=== PATIENT | male | born 1940 | race Caucasian/White ===

== ENCOUNTER 2017-01-01 14:01 | Emergency (ER) | payer MEDICARE, BC ==
[2017-01-01 14:15] VITALS: BP 164/83
[2017-01-01] MEDS ORDERED: Sodium Chloride 0.9% 10 ML Syringe FLUSH PRN (14:17)
--- NOTE | 2017-01-01 14:34 | CT ---
Head CT Technique: Multiple axial sections through the brain were obtained. Intravenous contrast was not utilized. Comparison: Previous MRI brain of 12/22/09 is available. Findings: Ventricles along with basal cisterns and sulci over the convexities are mildly prominent. Basal ganglia calcification is seen which is felt to be incidental. Minimal diminished density is seen within the periventricular white matter compatible with small vessel ischemic demyelination change. No other abnormal parenchymal densities are seen. No evidence of intracranial hemorrhage. No midline shift or mass effect is seen. Atherosclerotic calcification is seen within the right vertebral vessel and within the carotid siphon. Minimal areas of mucosal thickening seen within the maxillary and ethmoid sinuses. No acute calvarial abnormality is seen. Impression: 1. Incidental findings as noted above. No acute intracranial abnormality is identified on noncontrast head CT study. Diagnostic code #2
--- NOTE | 2017-01-01 15:28 | EDM.PDOC ---
ED HPI GENERAL MEDICAL PROBLEM - General Chief Complaint: Neuro Symptoms/Deficits Stated Complaint: LIPS ARE NUMB/ L ARM AND SHOULDER PAIN Time Seen by Provider: 01/01/17 14:05 Source of Information: Reports: Patient, Family, RN Notes Reviewed - History of Present Illness INITIAL COMMENTS - FREE TEXT/NARRATIVE: 76-year-old male comes in with left facial paresthesias. He had onset of these about a week ago but somewhat more bothersome yesterday and today. He has a trip coming up to [place] for a wedding and anniversary so he and his son felt they had better get this checked out before he leaves home. He has had no numbness tingling weakness or clumsiness of his hands arms or legs. No difficulty walking or balance difficulty. No visual changes. No headache nausea vomiting. No chest pain or difficulty breathing. He does have history of insulin -dependent diabetes and also history of hypertension. - Related Data Allergies Allergy/AdvReac Type Severity Reaction Status Date / Time Egnhnme-Vgd-Pbu Reductase Allergy Muscle Verified 06/18/15 15:42 Inhibitor Aches sulfamethoxazole Allergy Tachycardia Verified 06/18/15 15:42 [From Bactrim] trimethoprim [From Bactrim] Allergy Tachycardia Verified 06/18/15 15:42 Home Meds: Home Meds Levothyroxine [Synthroid] 50 mcg PO DAILY 04/11/15 [History] Enalapril [Vasotec] 5 mg PO DAILY #30 tablet 04/12/15 [Rx] metFORMIN [Glucophage] 500 mg PO BIDMEALS #60 tablet 04/12/15 [Rx] Insulin Glarg,Human.Rec.Analog [Lantus] 28 unit SUBCUT DAILY 06/18/15 [History] Calcium Polycarbophil 1 caplet PO DAILY 01/01/17 [History] Cholecalciferol (Vitamin D3) [Vitamin D3] 1 cap PO DAILY 01/01/17 [History] Cyanocobalamin (Vitamin B-12) [Vitamin B12] 5,000 mcg SL DAILY 01/01/17 [History ] Glutamine Forte 1 scoop PO BID 01/01/17 [History] Insulin Aspart [NovoLOG] 1 injection SUBCUT QID 01/01/17 [History] Multivit-Min/FA/Lycopene/Lut [Centrum Silver Tablet] 1 tab PO DAILY 01/01/17 [ History] Simvastatin [Zocor] 20 mg PO BEDTIME 01/01/17 [History] Ther-Biotic Complete 1 cap PO DAILY 01/01/17 [History] Past Medical History Other HEENT History: wears glasses Cardiovascular History: Reports: High Cholesterol, Hypertension Gastrointestinal History: Reports: Diverticulosis Other Genitourinary History: frequency, prostate cancer, prostate seed therapy Endocrine/Metabolic History: Reports: Diabetes, Type I, Diabetes, Type II, Hypothyroidism Other Hematologic History: non-hodgkin lymphoma, thrombocytopenia Other Oncologic History: seed implants and radiation Other Dermatologic History: post herpetic neuralgia - Past Surgical History GI Surgical History: Reports: Colonoscopy, Hernia Repair/Other Musculoskeletal Surgical History: Reports: Hip Replacement Social & Family History - Family History Family Medical History: Noncontributory - Tobacco Use Smoking Status *Q: Never Smoker Second Hand Smoke Exposure: No - Alcohol Use Days Per Week of Alcohol Use: 0 - Recreational Drug Use Recreational Drug Use: No ED ROS GENERAL - Review of Systems Review Of Systems: See Below Constitutional: Denies: Fever, Chills, Diaphoresis HEENT: Denies: Sinus Problem, Throat Pain, Vertigo, Vision Change Respiratory: Denies: Shortness of Breath Cardiovascular: Denies: Chest Pain GI/Abdominal: Denies: Abdominal Pain, Nausea, Vomiting Musculoskeletal: Reports: No Symptoms Neurological: Reports: Other (He has had some paresthesias around the mouth more so on the left but also somewhat on the right). Denies: Trouble Speaking, Difficulty Walking, Weakness ED EXAM, NEURO - Physical Exam Exam: See Below General Appearance: Alert, No Apparent Distress Eye Exam: Bilateral Eye: PERRL Throat/Mouth: Normal Inspection, Normal Oropharynx Head Exam: Atraumatic. No: Facial Swelling Neck: Supple Respiratory/Chest: No Respiratory Distress, Lungs Clear, Normal Breath Sounds Cardiovascular: Regular Rate, Rhythm GI/Abdominal: Soft, Non-Tender Neurological: Alert, Normal Mood/Affect, Normal Gait, No Motor/Sensory Deficits , Oriented x 3, Other (Finger to nose testing normal bilateral) Extremities: Normal Inspection, Normal Range of Motion. No: Pedal Edema, Leg Pain Skin Exam: Warm, Dry, Normal Color, No Rash EKG INTERPRETATION EKG Date: 01/01/17 Rhythm: NSR Brule: Normal P-Wave: Present QRS: Normal ST-T: Normal Course - Vital Signs Last Recorded V/S: Last Vital Signs Temp 97.4 F 01/01/17 14:08 Pulse 69 01/01/17 14:08 Resp 18 01/01/17 14:08 BP 164/83 H 01/01/17 14:08 Pulse Ox 95 01/01/17 14:08 - Orders/Labs/Meds Orders: Active Orders 24 hr Category Date Time Status EKG 12 Lead [EKG Documentation Completion] [] STAT Care 01/01/17 14:36 Active POC Glucose [Blood Glucose Check, Bedside] [] ONETIME Care 01/01/17 14:18 Active Peripheral IV Care [RC] . DIRECTED Care 01/01/17 14:17 Active Sodium Chloride 0.9% [Saline Flush] Med 01/01/17 14:17 Active 10 ml FLUSH ASDIRECTED PRN Peripheral IV Insertion Adult [OM.PC] Stat Oth 01/01/17 14:17 Ordered Medication Orders Sodium Chloride (Saline Flush) 10 ml FLUSH ASDIRECTED PRN PRN Reason: Keep Vein Open Last Admin: 01/01/17 14:33 Dose: 10 ml Labs: Laboratory Tests 01/01/17 01/01/17 01/01/17 Range/Units 14:11 14:11 14:12 WBC 4.67 (4.23-9.07) K/mm3 RBC 3.62 L (4.63-6.08) M/mm3 Hgb 11.4 L (13.7-17.5) gm/L Hct 33.2 L (40.1-51.0) % MCV 91.7 (79.0-92.2) fl MCH 31.5 (25.7-32.2) pg MCHC 34.3 (32.2-35.5) g/dl RDW Std Deviation 46.5 H (35.1-43.9) fL Plt Count 99 L (163-337) K/mm3 MPV 10.6 (9.4-12.3) fl Neut % (Auto) 73.5 H (34.0-67.9) % Lymph % (Auto) 15.2 L (21.8-53.1) % [place] % (Auto) 9.0 (5.3-12.2) % Eos % (Auto) 1.7 (0.8-7.0) Baso % (Auto) 0.4 (0.1-1.2) % Neut # (Auto) 3.43 (1.78-5.38) K/mm3 Lymph # (Auto) 0.71 L (1.32-3.57) K/mm3 [place] # (Auto) 0.42 (0.30-0.82) K/mm3 Eos # (Auto) 0.08 (0.04-0.54) K/mm3 Baso # (Auto) 0.02 (0.01-0.08) K/mm3 Manual Slide Review Abnormal smear Sodium 144 (136-145) mEq/L Potassium 4.2 (3.5-5.1) mEq/L Chloride 108 H (98-107) mEq/L Carbon Dioxide 28 (21-32) mEq/L Anion Gap 12.2 (5-15) BUN 21 H (7-18) mg/dL Creatinine 1.1 (0.7-1.3) mg/dL Est Cr Clr Drug Dosing TNP Estimated GFR (MDRD) > 60 (>60) mL/min BUN/Creatinine Ratio 19.1 H (14-18) Glucose 144 H (83-115) mg/dL POC Glucose 135 H (83-110) mg/dL Calcium 9.4 (8.5-10.1) mg/dL Total Bilirubin 0.4 (0.2-1.0) mg/dL AST 17 (15-37) U/L ALT 20 (16-63) U/L Alkaline Phosphatase 71 (46-116) U/L Total Protein 6.6 (6.4-8.2) g/dl Albumin 3.9 (3.4-5.0) g/dl Globulin 2.7 gm/dL Albumin/Globulin Ratio 1.4 (1-2) Meds: Medications Generic Name Dose Route Start Last Admin Trade Name Freq PRN Reason Stop Dose Admin Sodium Chloride 10 ml 01/01/17 14:17 01/01/17 14:33 Saline Flush FLUSH 10 ml ASDIRECTED PRN Administration Keep Vein Open - Re-Assessments/Exams Free Text/Narrative Re-Assessment/Exam: 01/01/17 15:43. CT of head is normal with no acute changes, EKG and monitor shows normal sinus rhythm, no acute changes, no ectopy. On exam he has possible very slight left facial droop but this is very questionable, neuro exam otherwise completely normal. 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 With his history of diabetes I am not going to put him on steroids. Also his son notes that he has been out in the heat a lot this last week. His BUN was upvery a slightly, also mildly anemic with a hemoglobin of 11.4. This was discussed with he and his son. No evidence for stroke or TIA. Discharge instructions as documented Departure - Departure Time of Disposition: 15:21 Disposition: Home, Self-Care 01 Clinical Impression: Paresthesias Anemia Qualifiers: Anemia type: other cause - Discharge Information Referrals: Westley Alberto MD [Primary Care Provider] - Forms: ED Department Discharge Additional Instructions: Rest, drink plenty of water to maintain hydration, continue current medications as prescribed. Try see Dr. Alberto tomorrow if possible, otherwise see Dr. Alberto when you get back from your trip to [place], go to ED immediately if you do to start developing numbness or weakness of your hand or leg or if you develop any type of speech difficulty or symptoms otherwise worsening in any way. - My Orders Last 24 Hours: My Active Orders 01/01/17 14:17 Peripheral IV Care [RC] . DIRECTED Sodium Chloride 0.9% [Saline Flush] 10 ml FLUSH ASDIRECTED PRN Peripheral IV Insertion Adult [OM.PC] Stat 01/01/17 14:18 POC Glucose [Blood Glucose Check, Bedside] [] ONETIME 01/01/17 14:36 EKG 12 Lead [EKG Documentation Completion] [] STAT - Assessment/Plan Last 24 Hours: My Active Orders 01/01/17 14:17 Peripheral IV Care [RC] . DIRECTED Sodium Chloride 0.9% [Saline Flush] 10 ml FLUSH ASDIRECTED PRN Peripheral IV Insertion Adult [OM.PC] Stat 01/01/17 14:18 POC Glucose [Blood Glucose Check, Bedside] [RC] ONETIME 01/01/17 14:36 EKG 12 Lead [EKG Documentation Completion] [] STAT
== END 2017-01-01 15:35 | disposition home or self-care (01) ==
LOC: JD.ED 14:01
DX: R20.9 Unspecified disturbances of skin sensation (principal); D64.9 Anemia, unspecified; I10 Essential (primary) hypertension; E78.00 Pure hypercholesterolemia, unspecified; E11.9 Type 2 diabetes mellitus without complications; E03.9 Hypothyroidism, unspecified; Z96.649 Presence of unspecified artificial hip joint; Z88.2 Allergy status to sulfonamides; Z88.1 Allergy status to other antibiotic agents; Z79.84 Long term (current) use of oral hypoglycemic drugs; Z79.4 Long term (current) use of insulin
CPT/HCPCS: 36415; 70450; 80053; 82962; 85025; 99285; J7050; 99284

== ENCOUNTER 2017-08-27 17:25 | Inpatient (IN) | payer MEDICARE, BC ==
[2017-08-27] MEDS ORDERED: Sodium Chloride 0.9% 10 ML Syringe FLUSH PRN (18:01)
[2017-08-27] MEDS ORDERED: Albuterol 0.083% 2.5 MG/3 ML Neb Soln NEB ONE (18:04)
[2017-08-27] MEDS ORDERED: guaiFENesin 600 MG Tab.ER PO ONE (18:04)
--- NOTE | 2017-08-27 18:56 | EDM.PDOC ---
ED HPI GENERAL MEDICAL PROBLEM - General Chief Complaint: General Stated Complaint: COUGHING/FEVER/NO ENERGY Time Seen by Provider: 08/27/17 17:48 Source of Information: Reports: Patient History Limitations: Reports: No Limitations - History of Present Illness INITIAL COMMENTS - FREE TEXT/NARRATIVE: Patient is a 77-year-old male who presents to the ED with a 4 day history of cough, sinus congestion, fatigue, malaise, and generally not feeling well. States at times he has felt feverish although nothing documented. Cough is productive at times. Has had a poor appetite with coughing. There's been no cough-induced vomiting. He was at the local [employer] [facility] exposed to multiple potential people with illnesses. Patient normally is very active and states as a recently he's been sleeping a lot more. Just recently had a 3 month checkup by his primary care provider with no concerning findings. Denies any chest pain, sore throat, headache, body aches, diarrhea, blood in stool, dysuria, or any additional complaints. Does have history diabetes, prostate cancer, and also non-Hodgkin's lymphoma. Both prostate cancer and non-Hodgkin's lymphoma remission. He's had similar symptoms in the past approximately 3 years ago and placed on Z-Quique. He has smoking history. Does not drink alcohol. Caffeine use is minimal. Patient does see his oncologist yearly. Last checkup was in May with no concerning findings. - Related Data Allergies Allergy/AdvReac Type Severity Reaction Status Date / Time Biwilzt-Tbg-Kun Reductase Allergy Muscle Verified 06/18/15 15:42 Inhibitor Aches sulfamethoxazole Allergy Tachycardia Verified 06/18/15 15:42 [From Bactrim] trimethoprim [From Bactrim] Allergy Tachycardia Verified 06/18/15 15:42 Home Meds: Home Meds Levothyroxine [Synthroid] 50 mcg PO DAILY 04/11/15 [History] Enalapril [Vasotec] 5 mg PO DAILY #30 tablet 04/12/15 [Rx] metFORMIN [Glucophage] 500 mg PO BIDMEALS #60 tablet 04/12/15 [Rx] Insulin Glarg,Human.Rec.Analog [Lantus] 44 unit SUBCUT DAILY 06/18/15 [History] Amoxicillin 500 mg PO ONETIME PRN 08/27/17 [History] Hydrochlorothiazide 12.5 mg PO DAILY 08/27/17 [History] Tamsulosin [Flomax] 0.4 mg PO BID 08/27/17 [History] Past Medical History Other HEENT History: wears glasses Cardiovascular History: Reports: High Cholesterol, Hypertension Gastrointestinal History: Reports: Diverticulosis Other Genitourinary History: frequency, prostate cancer, prostate seed therapy Endocrine/Metabolic History: Reports: Diabetes, Type I, Diabetes, Type II, Hypothyroidism Other Hematologic History: non-hodgkin lymphoma, thrombocytopenia Other Oncologic History: seed implants and radiation Other Dermatologic History: post herpetic neuralgia - Past Surgical History GI Surgical History: Reports: Colonoscopy, Hernia Repair/Other Musculoskeletal Surgical History: Reports: Hip Replacement Social & Family History - Family History Family Medical History: Noncontributory - Tobacco Use Smoking Status *Q: Never Smoker Second Hand Smoke Exposure: No - Caffeine Use Caffeine Use: Reports: Tea - Alcohol Use Days Per Week of Alcohol Use: 0 - Recreational Drug Use Recreational Drug Use: No ED ROS GENERAL - Review of Systems Review Of Systems: See Below Constitutional: Reports: Fever (Tactile), Malaise, Fatigue, Decreased Appetite HEENT: Reports: Rhinitis, Sinus Problem. Denies: Throat Pain Respiratory: Reports: Shortness of Breath, Cough, Sputum. Denies: Wheezing, Pleuritic Chest Pain, Hemoptysis Cardiovascular: Reports: Dyspnea on Exertion. Denies: Chest Pain, Lightheadedness, Orthopnea, PND, Syncope GI/Abdominal: Reports: No Symptoms Musculoskeletal: Reports: No Symptoms Neurological: Reports: No Symptoms ED EXAM, GENERAL - Physical Exam Exam: See Below Exam Limited By: No Limitations General Appearance: Alert, WD/WN, No Apparent Distress Ears: Normal External Exam, Normal Canal, Hearing Grossly Normal, Normal TMs Nose: Normal Inspection, Nasal Drainage, Clear Rhinorrhea Throat/Mouth: Normal Inspection, Normal Oropharynx, Normal Voice, No Airway Compromise Head: Atraumatic, Normocephalic Neck: Normal Inspection, Supple Respiratory/Chest: No Respiratory Distress, No Accessory Muscle Use, Chest Non- Tender, Rhonchi (Right lung moore throughout. Lower left lung moore.), Wheezing (More prominent in the right and left upper lung moore.) Cardiovascular: Normal Peripheral Pulses, Regular Rate, Rhythm, Systolic Murmur (2/6 mitral origin) Peripheral Pulses: 3+: Radial (L), Radial (R) GI/Abdominal: Normal Bowel Sounds, Soft, Non-Tender, No Organomegaly, No Distention Extremities: Normal Inspection, Normal Range of Motion, Non-Tender, Other (1+ edema to lower extremities with no pain to the posterior aspect legs.) Neurological: Alert, Oriented, CN II-XII Intact, Normal Cognition, No Motor/ Sensory Deficits Psychiatric: Normal Affect, Normal Mood Skin Exam: Warm, Dry, Intact, Normal Color Course - Vital Signs Last Recorded V/S: Last Vital Signs Temp 97.5 F 08/27/17 17:37 Pulse 85 08/27/17 17:37 Resp 24 H 08/27/17 17:37 BP 116/81 08/27/17 21:06 Pulse Ox 93 L 08/27/17 18:04 - Orders/Labs/Meds Orders: Active Orders 24 hr Category Date Time Status EKG Documentation Completion [RC] STAT Care 08/27/17 18:01 Active Oxygen Therapy [RC] ASDIRECTED Care 08/27/17 18:01 Active Peripheral IV Care [RC] . DIRECTED Care 08/27/17 18:02 Active RT Aerosol Therapy [RC] ASDIRECTED Care 08/27/17 18:04 Active Chest 2V [CR] Stat Exams 08/27/17 18:01 Taken Sodium Chloride 0.9% [Normal Saline] 1,000 ml Med 08/27/17 20:01 Active IV .BOLUS Sodium Chloride 0.9% [Saline Flush] Med 08/27/17 18:01 Active 10 ml FLUSH ASDIRECTED PRN Peripheral IV Insertion Adult [OM.PC] Stat Oth 08/27/17 18:01 Ordered Medication Orders Albuterol (Proventil Neb Soln) 2.5 mg NEB Q4HRRT PRN PRN Reason: Shortness of Breath Albuterol/Ipratropium (Duoneb 3.0-0.5 Mg/3 Ml) 3 ml NEB QID PRN PRN Reason: Shortness of Breath Benzonatate (Tessalon Perles) 100 mg PO TID PRN PRN Reason: Cough Dextrose/Water (Dextrose 50% In Water) 50 ml IVPUSH ASDIRECTED PRN PRN Reason: Hypoglycemia Enoxaparin Sodium (Lovenox) 40 mg SUBCUT Q24H EROS Guaifenesin (Mucinex) 600 mg PO BID EROS Sodium Chloride (Normal Saline) 1,000 mls @ 250 mls/hr IV .BOLUS ONE Stop: 08/28/17 00:00 Last Admin: 08/27/17 20:28 Dose: 250 mls/hr Levofloxacin/Dextrose 750 mg/ (Premix) 150 mls @ 100 mls/hr IV Q24H [facility] Last Admin: 08/27/17 22:58 Dose: 100 mls/hr Piperacillin Sod/Tazobactam (Sod 4.5 gm/ Sodium Chloride) 100 mls @ 25 mls/hr IV Q8H [facility] Insulin Aspart (Novolog) 0 unit SUBCUT QIDACANDBED [facility] PRN Reason: Protocol Last Admin: 08/27/17 22:55 Dose: 1 units Insulin Detemir (Levemir) 11 unit SUBCUT BID [facility] Levothyroxine Sodium (Synthroid) 50 mcg PO ACBRK [facility] Sodium Chloride (Saline Flush) 10 ml FLUSH ASDIRECTED PRN PRN Reason: Keep Vein Open Last Admin: 08/27/17 18:16 Dose: 10 ml Tamsulosin HCl (Flomax) 0.4 mg PO BID [facility] Labs: Laboratory Tests 08/27/17 08/27/17 08/27/17 Range/Units 17:49 17:49 17:49 WBC 2.98 L (4.23-9.07) K/mm3 RBC 3.77 L (4.63-6.08) M/mm3 Hgb 11.6 L (13.7-17.5) gm/L Hct 34.6 L (40.1-51.0) % MCV 91.8 (79.0-92.2) fl MCH 30.8 (25.7-32.2) pg MCHC 33.5 (32.2-35.5) g/dl RDW Std Deviation 47.1 H (35.1-43.9) fL Plt Count 97 L (163-337) K/mm3 MPV 11.1 (9.4-12.3) fl Neutrophils % (Manual) 64 H (40-60) % Band Neutrophils % 3 (0-10) % Lymphocytes % (Manual) 26 (20-40) % Atypical Lymphs % 0 % Monocytes % (Manual) 3 (2-10) % Eosinophils % (Manual) 1 (0.8-7.0) % Basophils % (Manual) 3 H (0.2-1.2) Platelet Estimate Decreased Plt Morphology Comment Normal Anisocytosis 1+ slight Microcytosis 1+ slight RBC Morph Comment Not Reportable PT 10.0 (8.0-13.0) SECONDS INR 0.94 APTT 29 (22-36) SECONDS D-Dimer, Quantitative 0.52 (0.19-0.59) mg/L Puncture Site ABG pH (7.35-7.45) ABG pCO2 (35.0-45.0) mmHg ABG pO2 (80.0-100.0) mmHg ABG HCO3 (22.0-26.0) meq/L ABG O2 Saturation (96.0-97.0) % ABG Base Excess (-2-2.0) Warren Test A-a Gradient mmHg O2 Delivery Device Oxygen Flow Rate FiO2 (21.00-100.00) % Sodium 138 (136-145) mEq/L Potassium 3.8 (3.5-5.1) mEq/L Chloride 104 (98-107) mEq/L Carbon Dioxide 22 (21-32) mEq/L Anion Gap 15.8 H (5-15) BUN 18 (7-18) mg/dL Creatinine 1.1 (0.7-1.3) mg/dL Est Cr Clr Drug Dosing 65.39 mL/min Estimated GFR (MDRD) > 60 (>60) mL/min BUN/Creatinine Ratio 16.4 (14-18) Glucose 179 H (83-115) mg/dL Lactic Acid (0.4-2.0) mmol/L Calcium 8.5 (8.5-10.1) mg/dL Total Bilirubin 0.5 (0.2-1.0) mg/dL AST 20 (15-37) U/L ALT 13 L (16-63) U/L Alkaline Phosphatase 79 (46-116) U/L NT-Pro-B Natriuret Pep (0-450) pg/mL Total Protein 7.0 (6.4-8.2) g/dl Albumin 3.8 (3.4-5.0) g/dl Globulin 3.2 gm/dL Albumin/Globulin Ratio 1.2 (1-2) TSH 3rd Generation (0.358-3.74) uIU/mL 08/27/17 08/27/17 08/27/17 Range/Units 17:49 18:22 18:22 WBC (4.23-9.07) K/mm3 RBC (4.63-6.08) M/mm3 Hgb (13.7-17.5) gm/L Hct (40.1-51.0) % MCV (79.0-92.2) fl MCH (25.7-32.2) pg MCHC (32.2-35.5) g/dl RDW Std Deviation (35.1-43.9) fL Plt Count (163-337) K/mm3 MPV (9.4-12.3) fl Neutrophils % (Manual) (40-60) % Band Neutrophils % (0-10) % Lymphocytes % (Manual) (20-40) % Atypical Lymphs % % Monocytes % (Manual) (2-10) % Eosinophils % (Manual) (0.8-7.0) % Basophils % (Manual) (0.2-1.2) Platelet Estimate Plt Morphology Comment Anisocytosis Microcytosis RBC Morph Comment PT (8.0-13.0) SECONDS INR APTT (22-36) SECONDS D-Dimer, Quantitative (0.19-0.59) mg/L Puncture Site Lt radial ABG pH 7.43 (7.35-7.45) ABG pCO2 29.2 L (35.0-45.0) mmHg ABG pO2 63.0 L (80.0-100.0) mmHg ABG HCO3 18.9 L (22.0-26.0) meq/L ABG O2 Saturation 93.4 L (96.0-97.0) % ABG Base Excess -4.1 L (-2-2.0) Warren Test Positive A-a Gradient 80 mmHg O2 Delivery Device Nasal cannula Oxygen Flow Rate 2.0 FiO2 28.00 (21.00-100.00) % Sodium (136-145) mEq/L Potassium (3.5-5.1) mEq/L Chloride (98-107) mEq/L Carbon Dioxide (21-32) mEq/L Anion Gap (5-15) BUN (7-18) mg/dL Creatinine (0.7-1.3) mg/dL Est Cr Clr Drug Dosing mL/min Estimated GFR (MDRD) (>60) mL/min BUN/Creatinine Ratio (14-18) Glucose (83-115) mg/dL Lactic Acid 1.8 (0.4-2.0) mmol/L Calcium (8.5-10.1) mg/dL Total Bilirubin (0.2-1.0) mg/dL AST (15-37) U/L ALT (16-63) U/L Alkaline Phosphatase (46-116) U/L NT-Pro-B Natriuret Pep 232 (0-450) pg/mL Total Protein (6.4-8.2) g/dl Albumin (3.4-5.0) g/dl Globulin gm/dL Albumin/Globulin Ratio (1-2) TSH 3rd Generation (0.358-3.74) uIU/mL 08/27/17 Range/Units 18:22 WBC (4.23-9.07) K/mm3 RBC (4.63-6.08) M/mm3 Hgb (13.7-17.5) gm/L Hct (40.1-51.0) % MCV (79.0-92.2) fl MCH (25.7-32.2) pg MCHC (32.2-35.5) g/dl RDW Std Deviation (35.1-43.9) fL Plt Count (163-337) K/mm3 MPV (9.4-12.3) fl Neutrophils % (Manual) (40-60) % Band Neutrophils % (0-10) % Lymphocytes % (Manual) (20-40) % Atypical Lymphs % % Monocytes % (Manual) (2-10) % Eosinophils % (Manual) (0.8-7.0) % Basophils % (Manual) (0.2-1.2) Platelet Estimate Plt Morphology Comment Anisocytosis Microcytosis RBC Morph Comment PT (8.0-13.0) SECONDS INR APTT (22-36) SECONDS D-Dimer, Quantitative (0.19-0.59) mg/L Puncture Site ABG pH (7.35-7.45) ABG pCO2 (35.0-45.0) mmHg ABG pO2 (80.0-100.0) mmHg ABG HCO3 (22.0-26.0) meq/L ABG O2 Saturation (96.0-97.0) % ABG Base Excess (-2-2.0) Warren Test A-a Gradient mmHg O2 Delivery Device Oxygen Flow Rate FiO2 (21.00-100.00) % Sodium (136-145) mEq/L Potassium (3.5-5.1) mEq/L Chloride (98-107) mEq/L Carbon Dioxide (21-32) mEq/L Anion Gap (5-15) BUN (7-18) mg/dL Creatinine (0.7-1.3) mg/dL Est Cr Clr Drug Dosing mL/min Estimated GFR (MDRD) (>60) mL/min BUN/Creatinine Ratio (14-18) Glucose (83-115) mg/dL Lactic Acid (0.4-2.0) mmol/L Calcium (8.5-10.1) mg/dL Total Bilirubin (0.2-1.0) mg/dL AST (15-37) U/L ALT (16-63) U/L Alkaline Phosphatase (46-116) U/L NT-Pro-B Natriuret Pep (0-450) pg/mL Total Protein (6.4-8.2) g/dl Albumin (3.4-5.0) g/dl Globulin gm/dL Albumin/Globulin Ratio (1-2) TSH 3rd Generation 3.669 (0.358-3.74) uIU/mL Meds: Medications Generic Name Dose Route Start Last Admin Trade Name Freq PRN Reason Stop Dose Admin Albuterol 2.5 mg 08/27/17 21:35 Proventil Neb Soln NEB Q4HRRT PRN Shortness of Breath Albuterol/Ipratropium 3 ml 08/27/17 21:32 Duoneb 3.0-0.5 Mg/3 Ml NEB QID PRN Shortness of Breath Benzonatate 100 mg 08/27/17 21:32 Tessalon Perles PO TID PRN Cough Dextrose/Water 50 ml 08/27/17 21:24 Dextrose 50% In Water IVPUSH ASDIRECTED PRN Hypoglycemia Enoxaparin Sodium 40 mg 08/27/17 21:45 Lovenox SUBCUT Q24H EROS Guaifenesin 600 mg 08/28/17 09:00 Mucinex PO BID EROS Sodium Chloride 1,000 mls @ 250 mls/hr 08/27/17 20:01 08/27/17 20:28 Normal Saline IV 08/28/17 00:00 250 mls/hr .BOLUS ONE Administration Levofloxacin/Dextrose 750 mg/ 150 mls @ 100 mls/hr 08/27/17 21:30 08/27/17 22 :58 Premix IV 100 mls/hr Q24H EROS Administration Piperacillin Sod/Tazobactam 100 mls @ 25 mls/hr 08/28/17 06:00 Sod 4.5 gm/ Sodium Chloride IV Q8H [facility] Insulin Aspart 0 unit 08/27/17 22:00 08/27/17 22:55 Novolog SUBCUT 1 units QIDACANDBED [facility] Administration Protocol Insulin Detemir 11 unit 08/28/17 09:00 Levemir SUBCUT BID [facility] Levothyroxine Sodium 50 mcg 08/28/17 06:00 Synthroid PO ACBRK [facility] Sodium Chloride 10 ml 08/27/17 18:01 08/27/17 18:16 Saline Flush FLUSH 10 ml ASDIRECTED PRN Administration Keep Vein Open Tamsulosin HCl 0.4 mg 08/28/17 09:00 Flomax PO BID EROS Discontinued Medications Generic Name Dose Route Start Last Admin Trade Name Freq PRN Reason Stop Dose Admin Albuterol 2.5 mg 08/27/17 18:04 08/27/17 18:13 Proventil Neb Soln NEB 08/27/17 18:05 2.5 mg ONETIME ONE Administration Azithromycin 500 mg 08/27/17 19:15 08/27/17 19:24 Zithromax PO 08/27/17 19:16 500 mg DAILY ONE Administration Guaifenesin 600 mg 08/27/17 18:04 08/27/17 18:16 Mucinex PO 08/27/17 18:05 600 mg ONETIME ONE Administration Ceftriaxone Sodium 2 gm/ 100 mls @ 100 mls/hr 08/27/17 19:15 08/27/17 19:26 Sodium Chloride IV 08/27/17 20:14 100 mls/hr ONETIME ONE Administration Piperacillin Sod/Tazobactam 100 mls @ 200 mls/hr 08/27/17 21:45 08/27/17 23: 18 Sod 4.5 gm/ Sodium Chloride IV 08/27/17 22:14 200 mls/hr ONETIME ONE Administration Pneumococcal Polyvalent Vaccine 0.5 ml 08/27/17 22:07 Pneumovax 23 IM 08/27/17 22:08 .ONCE ONE Prednisone 40 mg 08/27/17 19:16 08/27/17 19:24 Prednisone PO 08/27/17 19:17 40 mg ONETIME ONE Administration - Re-Assessments/Exams Free Text/Narrative Re-Assessment/Exam: IV established. Ordered albuterol neb treatment and also Mucinex 600 mg by mouth. Initial labs and studies were includes: CBC, d-dimer, influenza screen, coag studies, left chest, proBNP, chest x-ray two-view, and EKG. EKG sinus rhythm at a rate of 83 with Q wave present in leads 3. WBC: 2.98, HGB 11.6, platelet count 97, d-dimer 0.52, chemistry panel was essentially normal. At a gas 1.8. ProBNP to 32. Blood gas pH 7.43, PCO2 29.2, PO2 63, HCO3 18.9, ABG O2 saturation 93.4 via nasal cannula 2 L/m. 1914 Dr. Kirby reviewed CXR and agrees patient has has finding concerning for right sided middle lobe pneumonia. Influenza screen was negative. Ordered azithromycin 500mg PO, prednisone 40mg PO, and ceftriaxone 2 grams IV to treat for CAP. 08/27/17 19:38 O2 saturation 90-91% on room air. TSH 3.6 08/27/17 20:[address] Chaidez. Requested patient be admitted to [facility] with telemetry with reverse isolation. Departure - Departure Time of Disposition: 19:53 Disposition: Home, Self-Care 01 Clinical Impression: Thrombocytopenia CAP (community acquired pneumonia) Qualifiers: Laterality: right Lung location: middle lobe of lung Qualified Code(s): J18.1 - Lobar pneumonia, unspecified organism Leukopenia Qualifiers: Leukopenia type: unspecified Qualified Code(s): D72.819 - Decreased white blood cell count, unspecified Anemia Qualifiers: Anemia type: unspecified type Qualified Code(s): D64.9 - Anemia, unspecified - Discharge Information - My Orders Last 24 Hours: My Active Orders 08/27/17 18:01 EKG Documentation Completion [RC] STAT Oxygen Therapy [RC] ASDIRECTED Chest 2V [CR] Stat Sodium Chloride 0.9% [Saline Flush] 10 ml FLUSH ASDIRECTED PRN Peripheral IV Insertion Adult [OM.PC] Stat 08/27/17 18:02 Peripheral IV Care [RC] . DIRECTED 08/27/17 18:04 RT Aerosol Therapy [RC] ASDIRECTED 08/27/17 20:01 Sodium Chloride 0.9% [Normal Saline] 1,000 ml IV .BOLUS - Assessment/Plan Last 24 Hours: My Active Orders 08/27/17 18:01 EKG Documentation Completion [RC] STAT Oxygen Therapy [RC] ASDIRECTED Chest 2V [CR] Stat Sodium Chloride 0.9% [Saline Flush] 10 ml FLUSH ASDIRECTED PRN Peripheral IV Insertion Adult [OM.PC] Stat 08/27/17 18:02 Peripheral IV Care [RC] . DIRECTED 08/27/17 18:04 RT Aerosol Therapy [RC] ASDIRECTED 08/27/17 20:01 Sodium Chloride 0.9% [Normal Saline] 1,000 ml IV .BOLUS
[2017-08-27] MEDS ORDERED: cefTRIAXone 2 GM in Sodium Chloride 0.9% 100 ML IV ONE (19:15)
[2017-08-27] MEDS ORDERED: Azithromycin 250 MG Tab PO ONE (19:15)
[2017-08-27] MEDS ORDERED: predniSONE 20 MG Tab PO ONE (19:16)
[2017-08-27] MEDS ORDERED: Sodium Chloride 0.9% 1,000 ML IV ONE (20:01)
[2017-08-27] MEDS ORDERED: 50% Dextrose in Water 50 ML Syringe IVPUSH PRN (21:24)
[2017-08-27] MEDS ORDERED: Albuterol/Ipratropium 3.0-0.5 MG/3 ML Neb Soln NEB PRN (21:32)
[2017-08-27] MEDS ORDERED: Albuterol 0.083% 2.5 MG/3 ML Neb Soln NEB PRN (21:35)
[2017-08-27] MEDS ORDERED: Piperacillin/Tazobactam 4.5 GM in Sodium Chloride 0.9% 100 ML IV ONE (21:45)
[2017-08-27] MEDS ORDERED: Pneumococcal Polyvalent-23 Vaccine 0.5 ML SDV IM ONE (22:07)
[2017-08-27] MEDS: Insulin Aspart 100 Units/ML 3 ML Pen SUBCUT SCH (22:55)
[2017-08-27] MEDS: Levofloxacin/Dextrose 5%-Water 750 MG in Premix Bag 1 BAG IV SCH (22:58)
[2017-08-28] MEDS ORDERED: Sodium Chloride 0.9% 1,000 ML IV SCH (01:15)
[2017-08-28] MEDS ORDERED: Piperacillin/Tazobactam 4.5 GM in Sodium Chloride 0.9% 100 ML IV SCH (06:00)
--- NOTE | 2017-08-28 07:16 | CR ---
Chest: Two views of the chest were obtained. Comparison: Prior chest x-ray of 04/11/15. Patchy increased density is seen within both lung bases. Upper lungs are clear. Heart size is normal. Mild tortuosity of the thoracic aorta is seen. Bony structures show mild degenerative change within the spine. Impression: 1. Patchy increased density within both lung bases raising the possibility of mild bibasilar pneumonia. 2. Other incidental findings. Diagnostic code #3
[2017-08-28] MEDS ORDERED: INSULIN GLARG HUMAN REC ANALOG SUBCUT SCH (09:00)
[2017-08-28] MEDS: Insulin Aspart 100 Units/ML 3 ML Pen SUBCUT SCH ×4 (10:33→21:26)
[2017-08-28] MEDS: Insulin Detemir 100 Units/ML 3 ML Pen SUBCUT SCH ×2 (10:34→21:27)
[2017-08-28] MEDS: Tamsulosin 0.4 MG Cap.ER PO SCH ×2 (10:34→21:06)
[2017-08-28] MEDS: guaiFENesin 600 MG Tab.ER PO SCH ×2 (10:36→21:06)
[2017-08-28] MEDS: Enoxaparin 40 MG/0.4 ML Syringe SUBCUT SCH (12:45)
[2017-08-28] MEDS: Levothyroxine 50 MCG Tab PO SCH (14:42)
[2017-08-28] MEDS: Piperacillin/Tazobactam 4.5 GM in Dextrose 5% in Water 100 ML IV SCH ×4 (14:42→22:32)
--- NOTE | 2017-08-28 15:15 | PCM.HP ---
H&P History of Present Illness - General Date of Service: 08/27/17 Admit Problem/Dx: Admission Diagnosis/Problem Admission Diagnosis/Problem Pneumonia Source of Information: Patient, Family, Provider History Limitations: Reports: No Limitations - History of Present Illness Initial Comments - Free Text/Narative: 77 year old male with PMH of DM type 2, NHL, prostate cancer presents with generalized weakness associated with a productive cough. He may or may not have had a fever. He denies nausea and vomiting. There has been decreased oral ingestion of solid food and liquids. He has a beginning infiltrate in the right middle lobe and will be admitted for PNA. MS telemetry, full code. Onset of Symptoms: Reports: Gradual Symptom Onset Date: 08/23/17 Duration of Symptoms: Reports: Day(s):, Getting Worse Location: Reports: Generalized Severity: Moderate Improves with: Reports: Medication Worsens with: Reports: None Associated Symptoms: Reports: Chest Pain, cough w sputum, Fever/Chills, Malaise , Nausea/Vomiting, Weakness - Related Data Allergies/Adverse Reactions: Allergies Allergy/AdvReac Type Severity Reaction Status Date / Time Jnguops-Ydi-Vdf Reductase Allergy Muscle Verified 06/18/15 15:42 Inhibitor Aches sulfamethoxazole Allergy Tachycardia Verified 06/18/15 15:42 [From Bactrim] trimethoprim [From Bactrim] Allergy Tachycardia Verified 06/18/15 15:42 Home Medications: Home Meds Levothyroxine [Synthroid] 50 mcg PO DAILY 04/11/15 [History] Enalapril [Vasotec] 5 mg PO DAILY #30 tablet 04/12/15 [Rx] metFORMIN [Glucophage] 500 mg PO BIDMEALS #60 tablet 04/12/15 [Rx] Insulin Glarg,Human.Rec.Analog [Lantus] 44 unit SUBCUT DAILY 06/18/15 [History] Amoxicillin 500 mg PO ONETIME PRN 08/27/17 [History] Hydrochlorothiazide 12.5 mg PO DAILY 08/27/17 [History] Tamsulosin [Flomax] 0.4 mg PO BID 08/27/17 [History] Past Medical History HEENT History: Reports: None Other HEENT History: wears glasses Cardiovascular History: Reports: High Cholesterol, Hypertension Gastrointestinal History: Reports: Diverticulosis Other Genitourinary History: frequency, prostate cancer, prostate seed therapy Endocrine/Metabolic History: Reports: Diabetes, Type I, Diabetes, Type II, Hypothyroidism Other Hematologic History: non-hodgkin lymphoma, thrombocytopenia Oncologic (Cancer) History: Reports: Prostate Other Oncologic History: seed implants and radiation Other Dermatologic History: post herpetic neuralgia - Infectious Disease History Infectious Disease History: Reports: Chicken Pox, Measles, Mumps, Shingles - Past Surgical History GI Surgical History: Reports: Colonoscopy, Hernia Repair/Other Musculoskeletal Surgical History: Reports: Hip Replacement Social & Family History - Family History Family Medical History: Noncontributory - Tobacco Use Smoking Status *Q: Never Smoker Second Hand Smoke Exposure: No - Caffeine Use Caffeine Use: Reports: Tea - Alcohol Use Days Per Week of Alcohol Use: 0 - Recreational Drug Use Recreational Drug Use: No H&P Review of Systems - Review of Systems: Review Of Systems: See Below General: Reports: Fever, Malaise, Weakness, Decreased Appetite Pulmonary: Reports: Shortness of Breath, Pleuritic Chest Pain Cardiovascular: Reports: Chest Pain Gastrointestinal: Reports: Decreased Appetite Genitourinary: Reports: No Symptoms Musculoskeletal: Reports: No Symptoms Skin: Reports: No Symptoms Psychiatric: Reports: No Symptoms Neurological: Reports: No Symptoms Hematologic/Lymphatic: Reports: No Symptoms Immunologic: Reports: No Symptoms Exam - Exam Exam: See Below - Vital Signs Vital Signs: Last Vital Signs Temp 36.4 C 08/28/17 12:10 Pulse 65 08/28/17 12:10 Resp 20 08/28/17 12:10 BP 146/66 H 08/28/17 12:10 Pulse Ox 95 08/28/17 13:27 Weight: 105.143 kg - Exam Quality Assessment: Supplemental Oxygen, DVT Prophylaxis General: Alert, Oriented, Cooperative, Mild Distress HEENT: EOMI, Nares Patent, Normal Nasal Septum, Pupils Equal, Pupils Reactive, PERRLA Neck: Trachea Midline Lungs: Normal Respiratory Effort, Decreased Breath Sounds, Rhonchi Cardiovascular: Regular Rate, Regular Rhythm GI/Abdominal Exam: Normal Bowel Sounds, Soft, Non-Tender, No Organomegaly, No Distention (Male) Exam: Deferred Rectal (Males) Exam: Deferred Back Exam: Normal Inspection Extremities: Normal Inspection, Non-Tender, Normal Capillary Refill Skin: Warm, Dry Neurological: Cranial Nerves Intact Neuro Extensive - Mental Status: Alert, Oriented x3, Normal Mood/Affect, Normal Cognition Neuro Extensive - Motor, Sensory, Reflexes: CN II-XII Intact Psychiatric: Alert, Normal Affect, Normal Mood - Patient Data Lab Results Last 24 hrs: Laboratory Results - last 24 hr 08/27/17 08/27/17 08/27/17 Range/Units 17:49 17:49 17:49 WBC 2.98 L (4.23-9.07) K/mm3 RBC 3.77 L (4.63-6.08) M/mm3 Hgb 11.6 L (13.7-17.5) gm/L Hct 34.6 L (40.1-51.0) % MCV 91.8 (79.0-92.2) fl MCH 30.8 (25.7-32.2) pg MCHC 33.5 (32.2-35.5) g/dl RDW Std Deviation 47.1 H (35.1-43.9) fL Plt Count 97 L (163-337) K/mm3 MPV 11.1 (9.4-12.3) fl Neutrophils % (Manual) 64 H (40-60) % Band Neutrophils % 3 (0-10) % Lymphocytes % (Manual) 26 (20-40) % Atypical Lymphs % 0 % Monocytes % (Manual) 3 (2-10) % Eosinophils % (Manual) 1 (0.8-7.0) % Basophils % (Manual) 3 H (0.2-1.2) Platelet Estimate Decreased Plt Morphology Comment Normal Anisocytosis 1+ slight Microcytosis 1+ slight RBC Morph Comment Not Reportable PT 10.0 (8.0-13.0) SECONDS INR 0.94 APTT 29 (22-36) SECONDS D-Dimer, Quantitative 0.52 (0.19-0.59) mg/L Puncture Site ABG pH (7.35-7.45) ABG pCO2 (35.0-45.0) mmHg ABG pO2 (80.0-100.0) mmHg ABG HCO3 (22.0-26.0) meq/L ABG O2 Saturation (96.0-97.0) % ABG Base Excess (-2-2.0) Warren Test A-a Gradient mmHg O2 Delivery Device Oxygen Flow Rate FiO2 (21.00-100.00) % Sodium 138 (136-145) mEq/L Potassium 3.8 (3.5-5.1) mEq/L Chloride 104 (98-107) mEq/L Carbon Dioxide 22 (21-32) mEq/L Anion Gap 15.8 H (5-15) BUN 18 (7-18) mg/dL Creatinine 1.1 (0.7-1.3) mg/dL Est Cr Clr Drug Dosing 65.39 mL/min Estimated GFR (MDRD) > 60 (>60) mL/min BUN/Creatinine Ratio 16.4 (14-18) Glucose 179 H (83-115) mg/dL POC Glucose (83-110) mg/dL Lactic Acid (0.4-2.0) mmol/L Calcium 8.5 (8.5-10.1) mg/dL Total Bilirubin 0.5 (0.2-1.0) mg/dL AST 20 (15-37) U/L ALT 13 L (16-63) U/L Alkaline Phosphatase 79 (46-116) U/L NT-Pro-B Natriuret Pep (0-450) pg/mL Total Protein 7.0 (6.4-8.2) g/dl Albumin 3.8 (3.4-5.0) g/dl Globulin 3.2 gm/dL Albumin/Globulin Ratio 1.2 (1-2) TSH 3rd Generation (0.358-3.74) uIU/mL Mycoplasma pneumon IgM (NEGATIVE) 08/27/17 08/27/17 08/27/17 Range/Units 17:49 18:22 18:22 WBC (4.23-9.07) K/mm3 RBC (4.63-6.08) M/mm3 Hgb (13.7-17.5) gm/L Hct (40.1-51.0) % MCV (79.0-92.2) fl MCH (25.7-32.2) pg MCHC (32.2-35.5) g/dl RDW Std Deviation (35.1-43.9) fL Plt Count (163-337) K/mm3 MPV (9.4-12.3) fl Neutrophils % (Manual) (40-60) % Band Neutrophils % (0-10) % Lymphocytes % (Manual) (20-40) % Atypical Lymphs % % Monocytes % (Manual) (2-10) % Eosinophils % (Manual) (0.8-7.0) % Basophils % (Manual) (0.2-1.2) Platelet Estimate Plt Morphology Comment Anisocytosis Microcytosis RBC Morph Comment PT (8.0-13.0) SECONDS INR APTT (22-36) SECONDS D-Dimer, Quantitative (0.19-0.59) mg/L Puncture Site Lt radial ABG pH 7.43 (7.35-7.45) ABG pCO2 29.2 L (35.0-45.0) mmHg ABG pO2 63.0 L (80.0-100.0) mmHg ABG HCO3 18.9 L (22.0-26.0) meq/L ABG O2 Saturation 93.4 L (96.0-97.0) % ABG Base Excess -4.1 L (-2-2.0) Warren Test Positive A-a Gradient 80 mmHg O2 Delivery Device Nasal cannula Oxygen Flow Rate 2.0 FiO2 28.00 (21.00-100.00) % Sodium (136-145) mEq/L Potassium (3.5-5.1) mEq/L Chloride (98-107) mEq/L Carbon Dioxide (21-32) mEq/L Anion Gap (5-15) BUN (7-18) mg/dL Creatinine (0.7-1.3) mg/dL Est Cr Clr Drug Dosing mL/min Estimated GFR (MDRD) (>60) mL/min BUN/Creatinine Ratio (14-18) Glucose (83-115) mg/dL POC Glucose (83-110) mg/dL Lactic Acid 1.8 (0.4-2.0) mmol/L Calcium (8.5-10.1) mg/dL Total Bilirubin (0.2-1.0) mg/dL AST (15-37) U/L ALT (16-63) U/L Alkaline Phosphatase (46-116) U/L NT-Pro-B Natriuret Pep 232 (0-450) pg/mL Total Protein (6.4-8.2) g/dl Albumin (3.4-5.0) g/dl Globulin gm/dL Albumin/Globulin Ratio (1-2) TSH 3rd Generation (0.358-3.74) uIU/mL Mycoplasma pneumon IgM (NEGATIVE) 08/27/17 08/27/17 08/28/17 Range/Units 18:22 21:34 06:10 WBC (4.23-9.07) K/mm3 RBC (4.63-6.08) M/mm3 Hgb (13.7-17.5) gm/L Hct (40.1-51.0) % MCV (79.0-92.2) fl MCH (25.7-32.2) pg MCHC (32.2-35.5) g/dl RDW Std Deviation (35.1-43.9) fL Plt Count (163-337) K/mm3 MPV (9.4-12.3) fl Neutrophils % (Manual) (40-60) % Band Neutrophils % (0-10) % Lymphocytes % (Manual) (20-40) % Atypical Lymphs % % Monocytes % (Manual) (2-10) % Eosinophils % (Manual) (0.8-7.0) % Basophils % (Manual) (0.2-1.2) Platelet Estimate Plt Morphology Comment Anisocytosis Microcytosis RBC Morph Comment PT (8.0-13.0) SECONDS INR APTT (22-36) SECONDS D-Dimer, Quantitative (0.19-0.59) mg/L Puncture Site ABG pH (7.35-7.45) ABG pCO2 (35.0-45.0) mmHg ABG pO2 (80.0-100.0) mmHg ABG HCO3 (22.0-26.0) meq/L ABG O2 Saturation (96.0-97.0) % ABG Base Excess (-2-2.0) Warren Test A-a Gradient mmHg O2 Delivery Device Oxygen Flow Rate FiO2 (21.00-100.00) % Sodium (136-145) mEq/L Potassium (3.5-5.1) mEq/L Chloride (98-107) mEq/L Carbon Dioxide (21-32) mEq/L Anion Gap (5-15) BUN (7-18) mg/dL Creatinine (0.7-1.3) mg/dL Est Cr Clr Drug Dosing mL/min Estimated GFR (MDRD) (>60) mL/min BUN/Creatinine Ratio (14-18) Glucose (83-115) mg/dL POC Glucose 167 H (83-110) mg/dL Lactic Acid (0.4-2.0) mmol/L Calcium (8.5-10.1) mg/dL Total Bilirubin (0.2-1.0) mg/dL AST (15-37) U/L ALT (16-63) U/L Alkaline Phosphatase (46-116) U/L NT-Pro-B Natriuret Pep (0-450) pg/mL Total Protein (6.4-8.2) g/dl Albumin (3.4-5.0) g/dl Globulin gm/dL Albumin/Globulin Ratio (1-2) TSH 3rd Generation 3.669 (0.358-3.74) uIU/mL Mycoplasma pneumon IgM Negative (NEGATIVE) 08/28/17 08/28/17 Range/Units 06:30 11:24 WBC (4.23-9.07) K/mm3 RBC (4.63-6.08) M/mm3 Hgb (13.7-17.5) gm/L Hct (40.1-51.0) % MCV (79.0-92.2) fl MCH (25.7-32.2) pg MCHC (32.2-35.5) g/dl RDW Std Deviation (35.1-43.9) fL Plt Count (163-337) K/mm3 MPV (9.4-12.3) fl Neutrophils % (Manual) (40-60) % Band Neutrophils % (0-10) % Lymphocytes % (Manual) (20-40) % Atypical Lymphs % % Monocytes % (Manual) (2-10) % Eosinophils % (Manual) (0.8-7.0) % Basophils % (Manual) (0.2-1.2) Platelet Estimate Plt Morphology Comment Anisocytosis Microcytosis RBC Morph Comment PT (8.0-13.0) SECONDS INR APTT (22-36) SECONDS D-Dimer, Quantitative (0.19-0.59) mg/L Puncture Site ABG pH (7.35-7.45) ABG pCO2 (35.0-45.0) mmHg ABG pO2 (80.0-100.0) mmHg ABG HCO3 (22.0-26.0) meq/L ABG O2 Saturation (96.0-97.0) % ABG Base Excess (-2-2.0) Warren Test A-a Gradient mmHg O2 Delivery Device Oxygen Flow Rate FiO2 (21.00-100.00) % Sodium (136-145) mEq/L Potassium (3.5-5.1) mEq/L Chloride (98-107) mEq/L Carbon Dioxide (21-32) mEq/L Anion Gap (5-15) BUN (7-18) mg/dL Creatinine (0.7-1.3) mg/dL Est Cr Clr Drug Dosing mL/min Estimated GFR (MDRD) (>60) mL/min BUN/Creatinine Ratio (14-18) Glucose (83-115) mg/dL POC Glucose 225 H 250 H (83-110) mg/dL Lactic Acid (0.4-2.0) mmol/L Calcium (8.5-10.1) mg/dL Total Bilirubin (0.2-1.0) mg/dL AST (15-37) U/L ALT (16-63) U/L Alkaline Phosphatase (46-116) U/L NT-Pro-B Natriuret Pep (0-450) pg/mL Total Protein (6.4-8.2) g/dl Albumin (3.4-5.0) g/dl Globulin gm/dL Albumin/Globulin Ratio (1-2) TSH 3rd Generation (0.358-3.74) uIU/mL Mycoplasma pneumon IgM (NEGATIVE) Result Diagrams: 08/27/17 17:49 08/27/17 17:49 Joshua Results Last 24 hrs: Microbiology 08/27/17 18:48 Influenza Type A Antigen Screen - Final Nasal Aspirate, Unspecified NEGATIVE INFLUENZA A VIRUS AG Influenza Type B Antigen Screen - Final NEGATIVE INFLUENZA B VIRUS AG - Problem List (1) Pneumonia SNOMED Code(s): 673225747 ICD Code: J18.9 - PNEUMONIA, UNSPECIFIED ORGANISM Status: Acute Current Visit: Yes (2) Diabetes mellitus SNOMED Code(s): 35849827 ICD Code: E11.9 - TYPE 2 DIABETES MELLITUS WITHOUT COMPLICATIONS Status: Acute Current Visit: Yes (3) Hyperlipidemia associated with type 2 diabetes mellitus SNOMED Code(s): 630414534644, 836258064578 ICD Code: E11.69 - TYPE 2 DIABETES MELLITUS WITH OTHER SPECIFIED COMPLICATION ; E78.5 - HYPERLIPIDEMIA, UNSPECIFIED Status: Acute Current Visit: Yes (4) Hyperlipidemia SNOMED Code(s): 27548104 ICD Code: E78.5 - HYPERLIPIDEMIA, UNSPECIFIED Status: Acute Current Visit : Yes (5) Anemia SNOMED Code(s): 352252101 ICD Code: D64.9 - ANEMIA, UNSPECIFIED Status: Acute Current Visit: Yes Qualifiers: Anemia type: unspecified type Qualified Code(s): D64.9 - Anemia, unspecified (6) Leukopenia SNOMED Code(s): 17655405, 862438454 ICD Code: D72.819 - DECREASED WHITE BLOOD CELL COUNT, UNSPECIFIED Status: Acute Current Visit: Yes Qualifiers: Leukopenia type: unspecified Qualified Code(s): D72.819 - Decreased white blood cell count, unspecified (7) Thrombocytopenia SNOMED Code(s): 304649629 ICD Code: D69.6 - THROMBOCYTOPENIA, UNSPECIFIED Status: Acute Current Visit: Yes Problem List Initiated/Reviewed/Updated: Yes Orders Last 24hrs: Active Orders 24 hr Category Date Time Status Admission Status [Patient Status] [ADT] Routine ADT 08/27/17 20:11 Active Activity as Tolerated [RC] BID Care 08/27/17 21:27 Active Blood Glucose Check, Bedside [RC] QIDACANDBED Care 08/27/17 21:24 Active Cardiac Monitoring [RC] . DIRECTED Care 08/27/17 20:11 Active Incentive Spirometry [RT Incentive Spirometry] [RC] Care 08/28/17 11:06 Active ASDIRECTED Oxygen Therapy [RC] ASDIRECTED Care 08/27/17 18:01 Active RT Aerosol Therapy [RC] ASDIRECTED Care 08/27/17 18:04 Active RT Aerosol Therapy [RC] ASDIRECTED Care 08/27/17 21:33 Active A1C [GLYCOSYLATED HEMOGLOBIN,HGBA1C] [CHEM] Routine Lab 08/28/17 06:10 Received BASIC METABOLIC PANEL,BMP [CHEM] AM Lab 08/29/17 05:11 Ordered BASIC METABOLIC PANEL,BMP [CHEM] AM Lab 08/30/17 05:11 Ordered BASIC METABOLIC PANEL,BMP [CHEM] AM Lab 08/31/17 05:11 Ordered BASIC METABOLIC PANEL,BMP [CHEM] AM Lab 09/01/17 05:11 Ordered CBC WITH AUTO DIFF [HEME] AM Lab 08/29/17 05:11 Ordered CBC WITH AUTO DIFF [HEME] AM Lab 08/30/17 05:11 Ordered CBC WITH AUTO DIFF [HEME] AM Lab 08/31/17 05:11 Ordered CBC WITH AUTO DIFF [HEME] AM Lab 09/01/17 05:11 Ordered CRP [C-REACTIVE PROTEIN] [CHEM] AM Lab 08/29/17 05:11 Ordered CRP [C-REACTIVE PROTEIN] [CHEM] AM Lab 08/30/17 05:11 Ordered CRP [C-REACTIVE PROTEIN] [CHEM] AM Lab 08/31/17 05:11 Ordered CRP [C-REACTIVE PROTEIN] [CHEM] AM Lab 09/01/17 05:11 Ordered CULTURE BLOOD [BC] Stat Lab 08/28/17 12:45 Received CULTURE BLOOD [BC] Stat Lab 08/28/17 12:52 Received MAGNESIUM [CHEM] AM Lab 08/29/17 05:11 Ordered MAGNESIUM [CHEM] AM Lab 08/30/17 05:11 Ordered MAGNESIUM [CHEM] AM Lab 08/31/17 05:11 Ordered MAGNESIUM [CHEM] AM Lab 09/01/17 05:11 Ordered RESPIRATORY PANEL BY PCR [MREF] Routine Lab 08/27/17 22:52 Received STREP PNEUMONIAE ANTIGEN [MREF] Routine Lab 08/28/17 10:34 Ordered Albuterol [Proventil Neb Soln] Med 08/27/17 21:35 Active 2.5 mg NEB Q4HRRT PRN Albuterol/Ipratropium [DuoNeb 3.0-0.5 MG/3 ML] Med 08/27/17 21:32 Active 3 ml NEB QID PRN Benzonatate [Tessalon Perles] Med 08/27/17 21:32 Active 100 mg PO TID PRN Dextrose 50% in Water Med 08/27/17 21:24 Active 50 ml IVPUSH ASDIRECTED PRN Enoxaparin [Lovenox] Med 08/28/17 11:30 Active 40 mg SUBCUT Q24H Insulin Aspart [NovoLOG] Med 08/27/17 22:00 Active See Protocol SUBCUT QIDACANDBED Insulin Detemir [Levemir] Med 08/28/17 09:00 Active 11 unit SUBCUT BID Levofloxacin/Dextrose 5%-Water [Levaquin in D5W 750 MG/ Med 08/27/17 21:30 Active 150 ML] 750 mg Premix Bag 1 bag IV Q24H Levothyroxine [Synthroid] Med 08/28/17 06:00 Active 50 mcg PO ACBRK Piperacillin/Tazobactam [Zosyn] 4.5 gm Med 08/28/17 14:00 Active Dextrose 5% in Water 100 ml IV Q8H Sodium Chloride 0.9% [Saline Flush] Med 08/27/17 18:01 Active 10 ml FLUSH ASDIRECTED PRN Tamsulosin [Flomax] Med 08/28/17 09:00 Active 0.4 mg PO BID guaiFENesin [Mucinex] Med 08/28/17 09:00 Active 600 mg PO BID Blood Culture x2 Reflex Set [OM.PC] Stat Ot 08/28/17 12:04 Ordered Isolation [COMM] Routine Oth 08/27/17 21:27 Ordered Peripheral IV Insertion Adult [OM.PC] Stat Oth 08/27/17 18:01 Ordered Resuscitation Status Routine Resus Stat 08/27/17 21:40 Ordered Medication Orders Albuterol (Proventil Neb Soln) 2.5 mg NEB Q4HRRT PRN PRN Reason: Shortness of Breath Albuterol/Ipratropium (Duoneb 3.0-0.5 Mg/3 Ml) 3 ml NEB QID PRN PRN Reason: Shortness of Breath Benzonatate (Tessalon Perles) 100 mg PO TID PRN PRN Reason: Cough Dextrose/Water (Dextrose 50% In Water) 50 ml IVPUSH ASDIRECTED PRN PRN Reason: Hypoglycemia Enoxaparin Sodium (Lovenox) 40 mg SUBCUT Q24H [facility] Last Admin: 08/28/17 12:45 Dose: 40 mg Guaifenesin (Mucinex) 600 mg PO BID [facility] Last Admin: 08/28/17 10:36 Dose: 600 mg Levofloxacin/Dextrose 750 mg/ (Premix) 150 mls @ 100 mls/hr IV Q24H [facility] Last Admin: 08/27/17 22:58 Dose: 100 mls/hr Piperacillin Sod/Tazobactam (Sod 4.5 gm/ Dextrose/Water) 100 mls @ 25 mls/hr IV Q8H [facility] Last Admin: 08/28/17 14:42 Dose: 25 mls/hr Insulin Aspart (Novolog) 0 unit SUBCUT QIDACANDBED [facility]; Protocol Last Admin: 08/28/17 11:27 Dose: 3 units Admin: 08/28/17 10:33 Dose: 2 units Admin: 08/27/17 22:55 Dose: 1 units Insulin Detemir (Levemir) 11 unit SUBCUT BID [facility] Last Admin: 08/28/17 10:34 Dose: 11 units Levothyroxine Sodium (Synthroid) 50 mcg PO ACBRK [facility] Last Admin: 08/28/17 14:42 Dose: 50 mcg Sodium Chloride (Saline Flush) 10 ml FLUSH ASDIRECTED PRN PRN Reason: Keep Vein Open Last Admin: 08/27/17 18:16 Dose: 10 ml Tamsulosin HCl (Flomax) 0.4 mg PO BID [facility] Last Admin: 08/28/17 10:34 Dose: 0.4 mg Assessment/Plan Comment:: Impression: RML infiltrate with immune compromise Borderline neutropenia placed in reverse isolation History of NHL History of prostate cancer Diabetes Mellitus type II History of Herpetic Neuralgia Chronic HLD HTN BPH Hypothyroid Plan: IVF Zosyn/Levoquin Reverse/Droplet Isolation Resp infectious work up Home Meds Daily Labs DVT/GI prophylaxis
--- NOTE | 2017-08-28 19:50 | PCM.PN ---
- General Info Date of Service: 08/28/17 Admission Dx/Problem (Free Text): Admission Diagnosis/Problem Admission Diagnosis/Problem Pneumonia Subjective Update: In to see Heath today. He is sitting in a chair. Overall he is doing quite well. He has no complaints. Good appetite. Ambulating- states he was able to do two laps around the unit before getting tired. Pain is controlled. No fever/ chills, fatigue, shortness of breath, or sinus congestion. He states he still has a slight cough with some sputum, but feels it has improved. No concerns from nursing. Functional Status: Reports: Pain Controlled, Tolerating Diet, Ambulating, Urinating - Review of Systems General: Reports: No Symptoms, Fatigue (only after walking two laps around the unit). Denies: Fever, Weakness HEENT: Reports: No Symptoms Pulmonary: Reports: Cough (improved), Sputum (decreasing, unsure of color). Denies: Shortness of Breath Cardiovascular: Reports: No Symptoms. Denies: Chest Pain Gastrointestinal: Reports: No Symptoms. Denies: Abdominal Pain, Decreased Appetite Genitourinary: Reports: No Symptoms Musculoskeletal: Reports: No Symptoms Skin: Reports: No Symptoms Neurological: Reports: No Symptoms Psychiatric: Reports: No Symptoms - Patient Data Vitals - Most Recent: Last Vital Signs Temp 97.5 F 08/28/17 12:10 Pulse 65 08/28/17 12:10 Resp 20 08/28/17 12:10 BP 146/66 H 08/28/17 12:10 Pulse Ox 95 08/28/17 13:27 Weight - Most Recent: 231 lb 12.8 oz I&O - Last 24 Hours: Intake & Output 08/28/17 08/28/17 08/28/17 06:59 14:59 22:59 Intake Total 120 2290 Output Total 500 Balance 120 1790 Lab Results Last 24 Hours: Laboratory Results - last 24 hr 08/27/17 08/27/17 08/28/17 Range/Units 18:22 21:34 06:10 POC Glucose 167 H (83-110) mg/dL Hemoglobin A1c (4.50-6.20) % TSH 3rd Generation 3.669 (0.358-3.74) uIU/mL Mycoplasma pneumon IgM Negative (NEGATIVE) 08/28/17 08/28/17 08/28/17 Range/Units 06:10 06:30 11:24 POC Glucose 225 H 250 H (83-110) mg/dL Hemoglobin A1c 7.80 H (4.50-6.20) % TSH 3rd Generation (0.358-3.74) uIU/mL Mycoplasma pneumon IgM (NEGATIVE) 08/28/17 Range/Units 17:01 POC Glucose 212 H (83-110) mg/dL Hemoglobin A1c (4.50-6.20) % TSH 3rd Generation (0.358-3.74) uIU/mL Mycoplasma pneumon IgM (NEGATIVE) Joshua Results Last 24 Hours: Microbiology 08/27/17 18:48 Influenza Type A Antigen Screen - Final Nasal Aspirate, Unspecified NEGATIVE INFLUENZA A VIRUS AG Influenza Type B Antigen Screen - Final NEGATIVE INFLUENZA B VIRUS AG Med Orders - Current: Current Medications Albuterol (Proventil Neb Soln) 2.5 mg NEB Q4HRRT PRN PRN Reason: Shortness of Breath Albuterol/Ipratropium (Duoneb 3.0-0.5 Mg/3 Ml) 3 ml NEB QID PRN PRN Reason: Shortness of Breath Benzonatate (Tessalon Perles) 100 mg PO TID PRN PRN Reason: Cough Dextrose/Water (Dextrose 50% In Water) 50 ml IVPUSH ASDIRECTED PRN PRN Reason: Hypoglycemia Enoxaparin Sodium (Lovenox) 40 mg SUBCUT Q24H [facility] Last Admin: 08/28/17 12:45 Dose: 40 mg Guaifenesin (Mucinex) 600 mg PO BID [facility] Last Admin: 08/28/17 10:36 Dose: 600 mg Levofloxacin/Dextrose 750 mg/ (Premix) 150 mls @ 100 mls/hr IV Q24H [facility] Last Admin: 08/27/17 22:58 Dose: 100 mls/hr Piperacillin Sod/Tazobactam (Sod 4.5 gm/ Dextrose/Water) 100 mls @ 25 mls/hr IV Q8H [facility] Last Admin: 08/28/17 14:42 Dose: 25 mls/hr Insulin Aspart (Novolog) 0 unit SUBCUT QIDACANDBED [facility]; Protocol Last Admin: 08/28/17 17:35 Dose: 2 units Insulin Detemir (Levemir) 11 unit SUBCUT BID [facility] Last Admin: 08/28/17 10:34 Dose: 11 units Levothyroxine Sodium (Synthroid) 50 mcg PO ACBRK [facility] Last Admin: 08/28/17 14:42 Dose: 50 mcg Sodium Chloride (Saline Flush) 10 ml FLUSH ASDIRECTED PRN PRN Reason: Keep Vein Open Last Admin: 08/27/17 18:16 Dose: 10 ml Tamsulosin HCl (Flomax) 0.4 mg PO BID [facility] Last Admin: 08/28/17 10:34 Dose: 0.4 mg Discontinued Medications Albuterol (Proventil Neb Soln) 2.5 mg NEB ONETIME ONE Stop: 08/27/17 18:05 Last Admin: 08/27/17 18:13 Dose: 2.5 mg Azithromycin (Zithromax) 500 mg PO DAILY ONE Stop: 08/27/17 19:16 Last Admin: 08/27/17 19:24 Dose: 500 mg Guaifenesin (Mucinex) 600 mg PO ONETIME ONE Stop: 08/27/17 18:05 Last Admin: 08/27/17 18:16 Dose: 600 mg Ceftriaxone Sodium 2 gm/ (Sodium Chloride) 100 mls @ 100 mls/hr IV ONETIME ONE Stop: 08/27/17 20:14 Last Admin: 08/27/17 19:26 Dose: 100 mls/hr Sodium Chloride (Normal Saline) 1,000 mls @ 250 mls/hr IV .BOLUS ONE Stop: 08/28/17 00:00 Last Admin: 08/27/17 20:28 Dose: 250 mls/hr Piperacillin Sod/Tazobactam (Sod 4.5 gm/ Sodium Chloride) 100 mls @ 25 mls/hr IV Q8H [facility] Stop: 08/28/17 11:00 Last Admin: 08/28/17 14:42 Dose: 25 mls/hr Piperacillin Sod/Tazobactam (Sod 4.5 gm/ Sodium Chloride) 100 mls @ 200 mls/hr IV ONETIME ONE Stop: 08/27/17 22:14 Last Admin: 08/27/17 23:18 Dose: 200 mls/hr Sodium Chloride (Normal Saline) 1,000 mls @ 250 mls/hr IV ASDIRECTED [facility] Stop: 08/28/17 08:00 Last Admin: 08/28/17 01:49 Dose: 250 mls/hr Pneumococcal Polyvalent Vaccine (Pneumovax 23) 0.5 ml IM .ONCE ONE Stop: 08/27/17 22:08 Prednisone (Prednisone) 40 mg PO ONETIME ONE Stop: 08/27/17 19:17 Last Admin: 08/27/17 19:24 Dose: 40 mg - Exam Quality Assessment: Supplemental Oxygen General: Alert, Oriented, Cooperative, No Acute Distress HEENT: Pupils Equal, Pupils Reactive, EOMI, Mucous Membr. Moist/[place] Neck: Supple Lungs: Normal Respiratory Effort, Crackles Cardiovascular: Regular Rate, Regular Rhythm, Murmurs (systolic murmur) GI/Abdominal Exam: Normal Bowel Sounds, Soft, Non-Tender, No Organomegaly, No Distention, No Abnormal Bruit, No Mass, Pelvis Stable (Male) Exam: Deferred Back Exam: Normal Inspection, Full Range of Motion Extremities: Normal Inspection, Normal Range of Motion, Non-Tender, Normal Capillary Refill, Pedal Edema (1+ to lower extremities) Peripheral Pulses: 2+: Posterior Tibial (L), Posterior Tibial (R), Dorsalis Pedis (L), Dorsalis Pedis (R) Skin: Warm, Dry, Intact Neurological: No New Focal Deficit Psy/Mental Status: Alert, Normal Affect, Normal Mood - Problem List & Annotations (1) CAP (community acquired pneumonia) SNOMED Code(s): 169474585 Code(s): J18.9 - PNEUMONIA, UNSPECIFIED ORGANISM Status: Acute Priority: High Current Visit: Yes Qualifiers: Laterality: right Lung location: middle lobe of lung Qualified Code(s): J18.1 - Lobar pneumonia, unspecified organism (2) Diabetes mellitus SNOMED Code(s): 93308090 Code(s): E11.9 - TYPE 2 DIABETES MELLITUS WITHOUT COMPLICATIONS Status: Chronic Priority: Low Current Visit: Yes Qualifiers: Diabetes mellitus type: type 2 Diabetes mellitus terminal supervisor insulin use: unspecified terminal supervisor insulin use status Diabetes mellitus complication status : with unspecified complications Qualified Code(s): E11.8 - Type 2 diabetes mellitus with unspecified complications (3) Thrombocytopenia SNOMED Code(s): 608427015 Code(s): D69.6 - THROMBOCYTOPENIA, UNSPECIFIED Status: Acute Priority: Medium Current Visit: Yes (4) Hypothyroidism SNOMED Code(s): 72951360 Code(s): E03.9 - HYPOTHYROIDISM, UNSPECIFIED Status: Chronic Priority: Low Current Visit: No Qualifiers: Hypothyroidism type: unspecified Qualified Code(s): E03.9 - Hypothyroidism , unspecified (5) Hypertension SNOMED Code(s): 09415989 Code(s): I10 - ESSENTIAL (PRIMARY) HYPERTENSION Status: Chronic Priority : Low Current Visit: No Qualifiers: Hypertension type: unspecified Qualified Code(s): I10 - Essential (primary ) hypertension (6) Hyperlipidemia SNOMED Code(s): 69361872 Code(s): E78.5 - HYPERLIPIDEMIA, UNSPECIFIED Status: Chronic Priority: Low Current Visit: No Qualifiers: Hyperlipidemia type: unspecified Qualified Code(s): E78.5 - Hyperlipidemia , unspecified - Problem List Review Problem List Initiated/Reviewed/Updated: Yes - My Orders Last 24 Hours: My Active Orders 08/28/17 10:34 STREP PNEUMONIAE ANTIGEN [MREF] Routine 08/28/17 12:04 Blood Culture x2 Reflex Set [OM.PC] Stat 08/28/17 12:45 CULTURE BLOOD [BC] Stat 08/28/17 12:52 CULTURE BLOOD [BC] Stat 08/29/17 05:11 BASIC METABOLIC PANEL,BMP [CHEM] AM CBC WITH AUTO DIFF [HEME] AM CRP [C-REACTIVE PROTEIN] [CHEM] AM MAGNESIUM [CHEM] AM 08/30/17 05:11 BASIC METABOLIC PANEL,BMP [CHEM] AM CBC WITH AUTO DIFF [HEME] AM CRP [C-REACTIVE PROTEIN] [CHEM] AM MAGNESIUM [CHEM] AM 08/31/17 05:11 BASIC METABOLIC PANEL,BMP [CHEM] AM CBC WITH AUTO DIFF [HEME] AM CRP [C-REACTIVE PROTEIN] [CHEM] AM MAGNESIUM [CHEM] AM 09/01/17 05:11 BASIC METABOLIC PANEL,BMP [CHEM] AM CBC WITH AUTO DIFF [HEME] AM CRP [C-REACTIVE PROTEIN] [CHEM] AM MAGNESIUM [CHEM] AM - Plan Plan:: Impression: RML infiltrate with immune compromise Borderline neutropenia placed in reverse isolation History of NHL History of prostate cancer Diabetes Mellitus type II History of Herpetic Neuralgia Chronic HLD HTN BPH Hypothyroid Plan: IVF Zosyn/Levoquin Reverse/Droplet Isolation Resp infectious work up Home Meds Daily Labs DVT/GI prophylaxis
[2017-08-28] MEDS: Levofloxacin/Dextrose 5%-Water 750 MG in Premix Bag 1 BAG IV SCH (20:57)
[2017-08-28] MEDS: Benzonatate 100 MG Cap PO PRN (21:30)
[2017-08-29] MEDS: Piperacillin/Tazobactam 4.5 GM in Dextrose 5% in Water 100 ML IV SCH ×2 (06:42)
[2017-08-29] MEDS: Levothyroxine 50 MCG Tab PO SCH (06:42)
[2017-08-29] MEDS ORDERED: Enalapril 5 MG Tab PO SCH (09:00)
[2017-08-29] MEDS: Insulin Aspart 100 Units/ML 3 ML Pen SUBCUT SCH ×4 (09:19→21:59)
[2017-08-29] MEDS: Hydrochlorothiazide 12.5 MG Cap PO SCH (11:20)
[2017-08-29] MEDS: Tamsulosin 0.4 MG Cap.ER PO SCH ×2 (11:20→21:56)
[2017-08-29] MEDS: guaiFENesin 600 MG Tab.ER PO SCH ×2 (11:21→21:56)
[2017-08-29] MEDS: Insulin Detemir 100 Units/ML 3 ML Pen SUBCUT SCH ×2 (11:21→21:56)
[2017-08-29] MEDS: Cyanocobalamin (Vitamin B12) 1,000 MCG Tab PO SCH (11:22)
[2017-08-29] MEDS: Multivitamins,Therapeutic Tab PO SCH (11:22)
[2017-08-29] MEDS: Enoxaparin 40 MG/0.4 ML Syringe SUBCUT SCH (11:52)
--- NOTE | 2017-08-29 13:42 | PCM.PN ---
- General Info Date of Service: 08/29/17 Admission Dx/Problem (Free Text): Admission Diagnosis/Problem Admission Diagnosis/Problem Pneumonia Subjective Update: In to see Heath today. He is sitting in up in bed doing his spirometry. Overall he is doing well, but states he is feeling more tired today. His O2 sat is at 92%- told nursing to monitor especially after ambulation and give O2 via nasal cannula as needed. He says his cough is getting better and has less sputum. There was some wheezing on exam and patient stated he would like a nebulizing treatment. Good appetite, but he says he has been having some diarrhea- will start probiotics. Ambulating. Pain is controlled. No fever/chills , shortness of breath, or sinus congestion. No concerns from nursing. Functional Status: Reports: Pain Controlled, Tolerating Diet, Ambulating, Urinating, Incentive Spirometry - Review of Systems General: Reports: Fatigue. Denies: Fever, Weakness, Chills HEENT: Reports: No Symptoms Pulmonary: Reports: Cough (improved), Sputum (decreasing). Denies: Shortness of Breath Cardiovascular: Reports: No Symptoms. Denies: Chest Pain Gastrointestinal: Reports: Diarrhea. Denies: Abdominal Pain, Constipation, Decreased Appetite, Nausea, Vomiting Genitourinary: Reports: No Symptoms Musculoskeletal: Reports: No Symptoms Skin: Reports: No Symptoms Neurological: Reports: No Symptoms Psychiatric: Reports: No Symptoms - Patient Data Vitals - Most Recent: Last Vital Signs Temp 97.9 F 08/29/17 12:13 Pulse 71 08/29/17 12:13 Resp 18 08/29/17 12:13 BP 141/87 H 08/29/17 12:13 Pulse Ox 94 L 08/29/17 12:13 Weight - Most Recent: 233 lb 11.2 oz I&O - Last 24 Hours: Intake & Output 08/28/17 08/29/17 08/29/17 22:59 06:59 14:59 Intake Total 2790 300 360 Output Total 500 600 Balance 2290 -300 360 Lab Results Last 24 Hours: Laboratory Results - last 24 hr 08/28/17 08/28/17 08/28/17 Range/Units 06:10 17:01 20:45 WBC 2.83 L (4.23-9.07) K/mm3 RBC 3.32 L (4.63-6.08) M/mm3 Hgb 10.2 L (13.7-17.5) gm/L Hct 30.1 L (40.1-51.0) % MCV 90.7 (79.0-92.2) fl MCH 30.7 (25.7-32.2) pg MCHC 33.9 (32.2-35.5) g/dl RDW Std Deviation 45.4 H (35.1-43.9) fL Plt Count 88 L (163-337) K/mm3 MPV 10.6 (9.4-12.3) fl Neut % (Auto) 65.7 (34.0-67.9) % Lymph % (Auto) 21.2 L (21.8-53.1) % Clare % (Auto) 10.6 (5.3-12.2) % Eos % (Auto) 2.1 (0.8-7.0) Baso % (Auto) 0.4 (0.1-1.2) % Neut # (Auto) 1.86 (1.78-5.38) K/mm3 Lymph # (Auto) 0.60 L (1.32-3.57) K/mm3 Clare # (Auto) 0.30 (0.30-0.82) K/mm3 Eos # (Auto) 0.06 (0.04-0.54) K/mm3 Baso # (Auto) 0.01 (0.01-0.08) K/mm3 Manual Slide Review Abnormal smear Sodium (136-145) mEq/L Potassium (3.5-5.1) mEq/L Chloride (98-107) mEq/L Carbon Dioxide (21-32) mEq/L Anion Gap (5-15) BUN (7-18) mg/dL Creatinine (0.7-1.3) mg/dL Est Cr Clr Drug Dosing mL/min Estimated GFR (MDRD) (>60) mL/min BUN/Creatinine Ratio (14-18) Glucose (83-115) mg/dL POC Glucose 212 H (83-110) mg/dL Hemoglobin A1c 7.80 H (4.50-6.20) % Calcium (8.5-10.1) mg/dL Magnesium (1.8-2.4) mg/dl C-Reactive Protein (<1.0) mg/dL 08/28/17 08/28/17 08/29/17 Range/Units 20:45 21:25 06:28 WBC 2.63 L (4.23-9.07) K/mm3 RBC 3.53 L (4.63-6.08) M/mm3 Hgb 10.9 L (13.7-17.5) gm/L Hct 31.9 L (40.1-51.0) % MCV 90.4 (79.0-92.2) fl MCH 30.9 (25.7-32.2) pg MCHC 34.2 (32.2-35.5) g/dl RDW Std Deviation 45.3 H (35.1-43.9) fL Plt Count 87 L (163-337) K/mm3 MPV 10.8 (9.4-12.3) fl Neut % (Auto) 63.1 (34.0-67.9) % Lymph % (Auto) 22.4 (21.8-53.1) % Clare % (Auto) 9.9 (5.3-12.2) % Eos % (Auto) 3.8 (0.8-7.0) Baso % (Auto) 0.4 (0.1-1.2) % Neut # (Auto) 1.66 L (1.78-5.38) K/mm3 Lymph # (Auto) 0.59 L (1.32-3.57) K/mm3 Clare # (Auto) 0.26 L (0.30-0.82) K/mm3 Eos # (Auto) 0.10 (0.04-0.54) K/mm3 Baso # (Auto) 0.01 (0.01-0.08) K/mm3 Manual Slide Review Abnormal smear Sodium 138 (136-145) mEq/L Potassium 3.9 (3.5-5.1) mEq/L Chloride 104 (98-107) mEq/L Carbon Dioxide 22 (21-32) mEq/L Anion Gap 15.9 H (5-15) BUN 23 H (7-18) mg/dL Creatinine 1.1 (0.7-1.3) mg/dL Est Cr Clr Drug Dosing 65.39 mL/min Estimated GFR (MDRD) > 60 (>60) mL/min BUN/Creatinine Ratio 20.9 H (14-18) Glucose 264 H (83-115) mg/dL POC Glucose 236 H (83-110) mg/dL Hemoglobin A1c (4.50-6.20) % Calcium 8.5 (8.5-10.1) mg/dL Magnesium 1.8 (1.8-2.4) mg/dl C-Reactive Protein 2.6 H* (<1.0) mg/dL 08/29/17 08/29/17 08/29/17 Range/Units 06:28 06:52 11:38 WBC (4.23-9.07) K/mm3 RBC (4.63-6.08) M/mm3 Hgb (13.7-17.5) gm/L Hct (40.1-51.0) % MCV (79.0-92.2) fl MCH (25.7-32.2) pg MCHC (32.2-35.5) g/dl RDW Std Deviation (35.1-43.9) fL Plt Count (163-337) K/mm3 MPV (9.4-12.3) fl Neut % (Auto) (34.0-67.9) % Lymph % (Auto) (21.8-53.1) % Clare % (Auto) (5.3-12.2) % Eos % (Auto) (0.8-7.0) Baso % (Auto) (0.1-1.2) % Neut # (Auto) (1.78-5.38) K/mm3 Lymph # (Auto) (1.32-3.57) K/mm3 [place] # (Auto) (0.30-0.82) K/mm3 Eos # (Auto) (0.04-0.54) K/mm3 Baso # (Auto) (0.01-0.08) K/mm3 Manual Slide Review Sodium 138 (136-145) mEq/L Potassium 4.3 (3.5-5.1) mEq/L Chloride 105 (98-107) mEq/L Carbon Dioxide 23 (21-32) mEq/L Anion Gap 14.3 (5-15) BUN 19 H (7-18) mg/dL Creatinine 1.0 (0.7-1.3) mg/dL Est Cr Clr Drug Dosing 71.93 mL/min Estimated GFR (MDRD) > 60 (>60) mL/min BUN/Creatinine Ratio 19.0 H (14-18) Glucose 172 H (83-115) mg/dL POC Glucose 174 H 194 H (83-110) mg/dL Hemoglobin A1c (4.50-6.20) % Calcium 8.5 (8.5-10.1) mg/dL Magnesium 1.8 (1.8-2.4) mg/dl C-Reactive Protein 2.1 H* (<1.0) mg/dL Joshua Results Last 24 Hours: Microbiology 08/28/17 12:45 Aerobic Blood Culture - Preliminary Blood - Venous NO GROWTH AFTER 1 DAY Anaerobic Blood Culture - Preliminary NO GROWTH AFTER 1 DAY 08/28/17 12:52 Aerobic Blood Culture - Preliminary Blood - Venous - Lab Draw NO GROWTH AFTER 1 DAY Anaerobic Blood Culture - Preliminary NO GROWTH AFTER 1 DAY 08/27/17 22:52 Respiratory Virus Panel (PCR) - Final Nasopharyngeal Swab Med Orders - Current: Current Medications Albuterol (Proventil Neb Soln) 2.5 mg NEB Q4HRRT PRN PRN Reason: Shortness of Breath Albuterol/Ipratropium (Duoneb 3.0-0.5 Mg/3 Ml) 3 ml NEB QID PRN PRN Reason: Shortness of Breath Benzonatate (Tessalon Perles) 100 mg PO TID PRN PRN Reason: Cough Last Admin: 08/28/17 21:30 Dose: 100 mg Cyanocobalamin (Vitamin B12) 1,000 mcg PO DAILY [facility] Last Admin: 08/29/17 11:22 Dose: 1,000 mcg Dextrose/Water (Dextrose 50% In Water) 50 ml IVPUSH ASDIRECTED PRN PRN Reason: Hypoglycemia Enalapril Maleate (Vasotec) 5 mg PO DAILY [facility] Last Admin: 08/29/17 11:22 Dose: 5 mg Enoxaparin Sodium (Lovenox) 40 mg SUBCUT Q24H [facility] Last Admin: 08/29/17 11:52 Dose: 40 mg Flunisolide (Nasalide Nasal [place]) 0 ml NASBOTH BID [facility] Last Admin: 08/29/17 11:21 Dose: 1 spray Guaifenesin (Mucinex) 600 mg PO BID [facility] Last Admin: 08/29/17 11:21 Dose: 600 mg Hydrochlorothiazide (Hydrochlorothiazide) 12.5 mg PO DAILY [facility] Last Admin: 08/29/17 11:20 Dose: 12.5 mg Levofloxacin/Dextrose 750 mg/ (Premix) 150 mls @ 100 mls/hr IV Q24H [facility] Last Admin: 08/28/17 20:57 Dose: 100 mls/hr Insulin Aspart (Novolog) 0 unit SUBCUT QIDACANDBED [facility]; Protocol Last Admin: 08/29/17 11:51 Dose: 1 units Insulin Detemir (Levemir) 22 unit SUBCUT BID [facility] Last Admin: 08/29/17 11:21 Dose: 22 units Levothyroxine Sodium (Synthroid) 50 mcg PO ACBRK [facility] Last Admin: 08/29/17 06:42 Dose: 50 mcg Methylprednisolone Sodium Succinate (Solu-Medrol) 40 mg IV Q12H [facility] Multivitamins (Thera) 1 each PO DAILY [facility] Last Admin: 08/29/17 11:22 Dose: 1 each Sodium Chloride (Saline Flush) 10 ml FLUSH ASDIRECTED PRN PRN Reason: Keep Vein Open Last Admin: 08/27/17 18:16 Dose: 10 ml Tamsulosin HCl (Flomax) 0.4 mg PO BID [facility] Last Admin: 08/29/17 11:20 Dose: 0.4 mg Discontinued Medications Albuterol (Proventil Neb Soln) 2.5 mg NEB ONETIME ONE Stop: 08/27/17 18:05 Last Admin: 08/27/17 18:13 Dose: 2.5 mg Azithromycin (Zithromax) 500 mg PO DAILY ONE Stop: 08/27/17 19:16 Last Admin: 08/27/17 19:24 Dose: 500 mg Guaifenesin (Mucinex) 600 mg PO ONETIME ONE Stop: 08/27/17 18:05 Last Admin: 08/27/17 18:16 Dose: 600 mg Ceftriaxone Sodium 2 gm/ (Sodium Chloride) 100 mls @ 100 mls/hr IV ONETIME ONE Stop: 08/27/17 20:14 Last Admin: 08/27/17 19:26 Dose: 100 mls/hr Sodium Chloride (Normal Saline) 1,000 mls @ 250 mls/hr IV .BOLUS ONE Stop: 08/28/17 00:00 Last Admin: 08/27/17 20:28 Dose: 250 mls/hr Piperacillin Sod/Tazobactam (Sod 4.5 gm/ Sodium Chloride) 100 mls @ 25 mls/hr IV Q8H [facility] Stop: 08/28/17 11:00 Last Admin: 08/28/17 14:42 Dose: 25 mls/hr Piperacillin Sod/Tazobactam (Sod 4.5 gm/ Sodium Chloride) 100 mls @ 200 mls/hr IV ONETIME ONE Stop: 08/27/17 22:14 Last Admin: 08/27/17 23:18 Dose: 200 mls/hr Sodium Chloride (Normal Saline) 1,000 mls @ 250 mls/hr IV ASDIRECTED [facility] Stop: 08/28/17 08:00 Last Admin: 08/28/17 01:49 Dose: 250 mls/hr Piperacillin Sod/Tazobactam (Sod 4.5 gm/ Dextrose/Water) 100 mls @ 25 mls/hr IV Q8H [facility] Last Admin: 08/29/17 06:42 Dose: 25 mls/hr Insulin Detemir (Levemir) 11 unit SUBCUT BID [facility] Last Admin: 08/28/17 21:27 Dose: 11 units Pneumococcal Polyvalent Vaccine (Pneumovax 23) 0.5 ml IM .ONCE ONE Stop: 08/27/17 22:08 Prednisone (Prednisone) 40 mg PO ONETIME ONE Stop: 08/27/17 19:17 Last Admin: 08/27/17 19:24 Dose: 40 mg - Exam Quality Assessment: Supplemental Oxygen (2L nasal cannula) General: Alert, Oriented, Cooperative, No Acute Distress HEENT: Pupils Equal, Pupils Reactive, EOMI, Mucous Membr. Moist/[place] Neck: Supple Lungs: Normal Respiratory Effort, Crackles, Wheezing Cardiovascular: Regular Rate, Regular Rhythm, Murmurs (systolic) GI/Abdominal Exam: Normal Bowel Sounds, Soft, Non-Tender, No Organomegaly, No Distention, No Abnormal Bruit, No Mass, Pelvis Stable (Male) Exam: Deferred Back Exam: Normal Inspection, Full Range of Motion Extremities: Normal Inspection, Normal Range of Motion, Non-Tender, Normal Capillary Refill, Pedal Edema (1+ to lower extremities) Peripheral Pulses: 1+: Posterior Tibial (L), Posterior Tibial (R), Dorsalis Pedis (L), Dorsalis Pedis (R) Skin: Warm, Dry, Intact Neurological: No New Focal Deficit Psy/Mental Status: Alert, Normal Affect, Normal Mood - Problem List & Annotations (1) CAP (community acquired pneumonia) SNOMED Code(s): 382771146 Code(s): J18.9 - PNEUMONIA, UNSPECIFIED ORGANISM Status: Acute Priority: High Current Visit: Yes Qualifiers: Laterality: right Lung location: middle lobe of lung Qualified Code(s): J18.1 - Lobar pneumonia, unspecified organism (2) Diabetes mellitus SNOMED Code(s): 15516953 Code(s): E11.9 - TYPE 2 DIABETES MELLITUS WITHOUT COMPLICATIONS Status: Chronic Priority: Low Current Visit: Yes Qualifiers: Diabetes mellitus type: type 2 Diabetes mellitus nursing home insulin use: unspecified terminal make up operator insulin use status Diabetes mellitus complication status : with unspecified complications Qualified Code(s): E11.8 - Type 2 diabetes mellitus with unspecified complications (3) Thrombocytopenia SNOMED Code(s): 261820861 Code(s): D69.6 - THROMBOCYTOPENIA, UNSPECIFIED Status: Acute Priority: Medium Current Visit: Yes (4) Hypothyroidism SNOMED Code(s): 60550307 Code(s): E03.9 - HYPOTHYROIDISM, UNSPECIFIED Status: Chronic Priority: Low Current Visit: No Qualifiers: Hypothyroidism type: unspecified Qualified Code(s): E03.9 - Hypothyroidism , unspecified (5) Hypertension SNOMED Code(s): 22937410 Code(s): I10 - ESSENTIAL (PRIMARY) HYPERTENSION Status: Chronic Priority : Low Current Visit: No Qualifiers: Hypertension type: unspecified Qualified Code(s): I10 - Essential (primary ) hypertension (6) Hyperlipidemia SNOMED Code(s): 51292835 Code(s): E78.5 - HYPERLIPIDEMIA, UNSPECIFIED Status: Chronic Priority: Low Current Visit: No Qualifiers: Hyperlipidemia type: unspecified Qualified Code(s): E78.5 - Hyperlipidemia , unspecified - Problem List Review Problem List Initiated/Reviewed/Updated: Yes - My Orders Last 24 Hours: My Active Orders 08/28/17 12:45 CULTURE BLOOD [BC] Stat 08/28/17 12:52 CULTURE BLOOD [BC] Stat 08/28/17 20:31 STREP PNEUMONIAE ANTIGEN [MREF] Routine 08/30/17 05:11 Chest 2V [CR] AM BASIC METABOLIC PANEL,BMP [CHEM] AM CBC WITH AUTO DIFF [HEME] AM CRP [C-REACTIVE PROTEIN] [CHEM] AM MAGNESIUM [CHEM] AM 08/31/17 05:11 BASIC METABOLIC PANEL,BMP [CHEM] AM CBC WITH AUTO DIFF [HEME] AM CRP [C-REACTIVE PROTEIN] [CHEM] AM MAGNESIUM [CHEM] AM 09/01/17 05:11 BASIC METABOLIC PANEL,BMP [CHEM] AM CBC WITH AUTO DIFF [HEME] AM CRP [C-REACTIVE PROTEIN] [CHEM] AM MAGNESIUM [CHEM] AM - Plan Plan:: I/P: Acute Pneumonia- Bibasilar via chest Xray -RML infiltrate with immune compromise -Supplemental 02 PRN to keep saturations >90% -RT/Nebs/IS/FV -Repeat CXR tomorrow AM -Mycoplasma, S. pneumo negative -Resp viral panel positive for Metapneumovirus--> Droplet and Respiratory precautions -Continue Levoquin IV, D/C Zosyn -IVF -Pneumovax 23 given 08/27/17 -CRP 2.6--> 2.1 Borderline neutropenia -WBC 2.8-->2.63 -Reverse isolation Thrombocytopenia -Plt 88-->87 Diabetes Mellitus type II -Novolog/Levemir History of NHL History of prostate cancer History of Herpetic Neuralgia Chronic: HLD HTN BPH Hypothyroid Other: Home Meds Daily Labs DVT/GI prophylaxis RT/PT/OT CM for assist with DC planning Probiotics for Diarrhea PCP is Westley Alberto at [place] Patient is Full code status.
[2017-08-29] MEDS ORDERED: Saccharomyces Boulardii (Probiotic) 250 MG Cap PO SCH (15:45)
[2017-08-29] MEDS: Famotidine 20 MG Tab PO SCH ×2 (16:48→21:56)
[2017-08-29] MEDS: Saccharomyces Boulardii (Probiotic) 250 MG Cap PO SCH ×2 (16:48→21:55)
[2017-08-29] MEDS: methylPREDNISolone Sodium Succinate 40 MG/1 ML SDV IV SCH (17:03)
[2017-08-29] MEDS: Levofloxacin/Dextrose 5%-Water 750 MG in Premix Bag 1 BAG IV SCH (21:58)
[2017-08-29] MEDS: Benzonatate 100 MG Cap PO PRN (22:21)
[2017-08-30] MEDS: methylPREDNISolone Sodium Succinate 40 MG/1 ML SDV IV SCH ×2 (06:13→17:00)
[2017-08-30] MEDS: Levothyroxine 50 MCG Tab PO SCH (06:13)
[2017-08-30] MEDS ORDERED: hydrALAZINE 20 MG/ML SDV IVPUSH PRN (07:06)
[2017-08-30] MEDS: Insulin Aspart 100 Units/ML 3 ML Pen SUBCUT SCH ×5 (07:58→21:32)
[2017-08-30] MEDS: Insulin Detemir 100 Units/ML 3 ML Pen SUBCUT SCH ×2 (08:02→21:30)
[2017-08-30] MEDS: Famotidine 20 MG Tab PO SCH ×2 (08:06→21:28)
[2017-08-30] MEDS: Multivitamins,Therapeutic Tab PO SCH (08:06)
[2017-08-30] MEDS: Saccharomyces Boulardii (Probiotic) 250 MG Cap PO SCH ×2 (08:06→21:28)
[2017-08-30] MEDS: Tamsulosin 0.4 MG Cap.ER PO SCH ×2 (08:06→21:28)
[2017-08-30] MEDS: Cyanocobalamin (Vitamin B12) 1,000 MCG Tab PO SCH (08:07)
[2017-08-30] MEDS: Hydrochlorothiazide 12.5 MG Cap PO SCH (08:08)
[2017-08-30] MEDS: guaiFENesin 600 MG Tab.ER PO SCH ×2 (08:08→21:28)
--- NOTE | 2017-08-30 09:21 | CR ---
Chest: Two views of the chest were obtained. Comparison: Prior chest x-ray of 08/27/17. Patchy increased density within both lung bases. Findings are felt to be stable from prior exam. Lungs otherwise are clear. Heart size and mediastinum are normal. Bony structures show mild degenerative change. Impression: 1. Slight increased density within both lung bases which appears fairly stable. These findings appear without significant change from most recent study raising the possibility of persisting pneumonia, atelectasis or development of scarring. Diagnostic code #3
--- NOTE | 2017-08-30 11:51 | PCM.PN ---
- General Info Date of Service: 08/30/17 Admission Dx/Problem (Free Text): Admission Diagnosis/Problem Admission Diagnosis/Problem Pneumonia Subjective Update: In to see Heath today. He is laying in bed. Overall he is doing well. He says his cough is getting better and has less sputum. Good appetite, still having some diarrhea- currently taking probiotics twice daily. Ambulating well- feels more energized today and was walking laps around the unit this AM. Pain is controlled. No fever/chills, shortness of breath, or sinus congestion. Overnight nursing had some concerns with his BP, the highest reading was 156/83 , so we increased his at home Vasotec from 5mg->10mg and put in orders for Hydralazine as needed. There is some slight edema present in both of his legs- SIDNEY hose ordered. Nursing has no other concerns. Functional Status: Reports: Pain Controlled, Tolerating Diet, Ambulating, Urinating, Incentive Spirometry - Review of Systems General: Reports: No Symptoms. Denies: Fever, Weakness, Fatigue HEENT: Reports: No Symptoms. Denies: Sinus Congestion Pulmonary: Reports: Cough (improving), Sputum (decreasing). Denies: Shortness of Breath Cardiovascular: Reports: No Symptoms Gastrointestinal: Reports: Diarrhea (decreasing). Denies: Abdominal Pain, Constipation, Decreased Appetite, Nausea, Vomiting Genitourinary: Reports: No Symptoms Musculoskeletal: Reports: No Symptoms Skin: Reports: No Symptoms Neurological: Reports: No Symptoms Psychiatric: Reports: No Symptoms - Patient Data Vitals - Most Recent: Last Vital Signs Temp 97.3 F 08/30/17 08:57 Pulse 64 08/30/17 08:57 Resp 20 08/30/17 08:57 BP 177/84 H 08/30/17 08:57 Pulse Ox 95 08/30/17 08:57 Weight - Most Recent: 225 lb 4.8 oz I&O - Last 24 Hours: Intake & Output 08/29/17 08/30/17 08/30/17 22:59 06:59 14:59 Intake Total 850 300 360 Output Total 950 600 Balance -100 -300 360 Lab Results Last 24 Hours: Laboratory Results - last 24 hr 08/29/17 08/29/17 08/29/17 Range/Units 11:38 16:41 21:20 WBC (4.23-9.07) K/mm3 RBC (4.63-6.08) M/mm3 Hgb (13.7-17.5) gm/L Hct (40.1-51.0) % MCV (79.0-92.2) fl MCH (25.7-32.2) pg MCHC (32.2-35.5) g/dl RDW Std Deviation (35.1-43.9) fL Plt Count (163-337) K/mm3 MPV (9.4-12.3) fl Neut % (Auto) (34.0-67.9) % Lymph % (Auto) (21.8-53.1) % Motley % (Auto) (5.3-12.2) % Eos % (Auto) (0.8-7.0) Baso % (Auto) (0.1-1.2) % Neut # (Auto) (1.78-5.38) K/mm3 Lymph # (Auto) (1.32-3.57) K/mm3 Motley # (Auto) (0.30-0.82) K/mm3 Eos # (Auto) (0.04-0.54) K/mm3 Baso # (Auto) (0.01-0.08) K/mm3 Manual Slide Review Sodium (136-145) mEq/L Potassium (3.5-5.1) mEq/L Chloride (98-107) mEq/L Carbon Dioxide (21-32) mEq/L Anion Gap (5-15) BUN (7-18) mg/dL Creatinine (0.7-1.3) mg/dL Est Cr Clr Drug Dosing mL/min Estimated GFR (MDRD) (>60) mL/min BUN/Creatinine Ratio (14-18) Glucose (83-115) mg/dL POC Glucose 194 H 209 H 381 H (83-110) mg/dL Calcium (8.5-10.1) mg/dL Magnesium (1.8-2.4) mg/dl C-Reactive Protein (<1.0) mg/dL 08/30/17 08/30/17 08/30/17 Range/Units 05:36 05:36 06:12 WBC 2.92 L (4.23-9.07) K/mm3 RBC 3.53 L (4.63-6.08) M/mm3 Hgb 10.8 L (13.7-17.5) gm/L Hct 31.3 L (40.1-51.0) % MCV 88.7 (79.0-92.2) fl MCH 30.6 (25.7-32.2) pg MCHC 34.5 (32.2-35.5) g/dl RDW Std Deviation 43.7 (35.1-43.9) fL Plt Count 93 L (163-337) K/mm3 MPV 11.0 (9.4-12.3) fl Neut % (Auto) 77.1 H (34.0-67.9) % Lymph % (Auto) 13.0 L (21.8-53.1) % Motley % (Auto) 8.2 (5.3-12.2) % Eos % (Auto) 0.3 L (0.8-7.0) Baso % (Auto) 0.0 L (0.1-1.2) % Neut # (Auto) 2.25 (1.78-5.38) K/mm3 Lymph # (Auto) 0.38 L (1.32-3.57) K/mm3 Motley # (Auto) 0.24 L (0.30-0.82) K/mm3 Eos # (Auto) 0.01 L (0.04-0.54) K/mm3 Baso # (Auto) 0.00 L (0.01-0.08) K/mm3 Manual Slide Review Abnormal smear Sodium 136 (136-145) mEq/L Potassium 4.4 (3.5-5.1) mEq/L Chloride 103 (98-107) mEq/L Carbon Dioxide 23 (21-32) mEq/L Anion Gap 14.4 (5-15) BUN 18 (7-18) mg/dL Creatinine 0.9 (0.7-1.3) mg/dL Est Cr Clr Drug Dosing 79.92 mL/min Estimated GFR (MDRD) > 60 (>60) mL/min BUN/Creatinine Ratio 20.0 H (14-18) Glucose 270 H (83-115) mg/dL POC Glucose 248 H (83-110) mg/dL Calcium 8.9 (8.5-10.1) mg/dL Magnesium 1.8 (1.8-2.4) mg/dl C-Reactive Protein 1.3 H* (<1.0) mg/dL 08/30/17 Range/Units 11:20 WBC (4.23-9.07) K/mm3 RBC (4.63-6.08) M/mm3 Hgb (13.7-17.5) gm/L Hct (40.1-51.0) % MCV (79.0-92.2) fl MCH (25.7-32.2) pg MCHC (32.2-35.5) g/dl RDW Std Deviation (35.1-43.9) fL Plt Count (163-337) K/mm3 MPV (9.4-12.3) fl Neut % (Auto) (34.0-67.9) % Lymph % (Auto) (21.8-53.1) % [place] % (Auto) (5.3-12.2) % Eos % (Auto) (0.8-7.0) Baso % (Auto) (0.1-1.2) % Neut # (Auto) (1.78-5.38) K/mm3 Lymph # (Auto) (1.32-3.57) K/mm3 [place] # (Auto) (0.30-0.82) K/mm3 Eos # (Auto) (0.04-0.54) K/mm3 Baso # (Auto) (0.01-0.08) K/mm3 Manual Slide Review Sodium (136-145) mEq/L Potassium (3.5-5.1) mEq/L Chloride (98-107) mEq/L Carbon Dioxide (21-32) mEq/L Anion Gap (5-15) BUN (7-18) mg/dL Creatinine (0.7-1.3) mg/dL Est Cr Clr Drug Dosing mL/min Estimated GFR (MDRD) (>60) mL/min BUN/Creatinine Ratio (14-18) Glucose (83-115) mg/dL POC Glucose 352 H (83-110) mg/dL Calcium (8.5-10.1) mg/dL Magnesium (1.8-2.4) mg/dl C-Reactive Protein (<1.0) mg/dL Joshua Results Last 24 Hours: Microbiology 08/28/17 20:31 Streptococcus pneumoniae Antigen (M - Final Urine 08/28/17 12:45 Aerobic Blood Culture - Preliminary Blood - Venous NO GROWTH AFTER 1 DAY Anaerobic Blood Culture - Preliminary NO GROWTH AFTER 1 DAY 08/28/17 12:52 Aerobic Blood Culture - Preliminary Blood - Venous - Lab Draw NO GROWTH AFTER 1 DAY Anaerobic Blood Culture - Preliminary NO GROWTH AFTER 1 DAY Med Orders - Current: Current Medications Albuterol (Proventil Neb Soln) 2.5 mg NEB Q4HRRT PRN PRN Reason: Shortness of Breath Albuterol/Ipratropium (Duoneb 3.0-0.5 Mg/3 Ml) 3 ml NEB QID PRN PRN Reason: Shortness of Breath Last Admin: 08/29/17 15:55 Dose: 3 ml Benzonatate (Tessalon Perles) 100 mg PO TID PRN PRN Reason: Cough Last Admin: 08/29/17 22:21 Dose: 100 mg Cyanocobalamin (Vitamin B12) 1,000 mcg PO DAILY [facility] Last Admin: 08/30/17 08:07 Dose: 1,000 mcg Dextrose/Water (Dextrose 50% In Water) 50 ml IVPUSH ASDIRECTED PRN PRN Reason: Hypoglycemia Enalapril Maleate (Vasotec) 10 mg PO DAILY [facility] Last Admin: 08/30/17 08:07 Dose: 10 mg Enoxaparin Sodium (Lovenox) 40 mg SUBCUT Q24H [facility] Last Admin: 08/29/17 11:52 Dose: 40 mg Famotidine (Pepcid) 20 mg PO BID [facility] Last Admin: 08/30/17 08:06 Dose: 20 mg Flunisolide (Nasalide Nasal [place]) 0 ml NASBOTH BID [facility] Last Admin: 08/30/17 08:08 Dose: 1 spray Guaifenesin (Mucinex) 600 mg PO BID [facility] Last Admin: 08/30/17 08:08 Dose: 600 mg Hydralazine HCl (Apresoline) 10 mg IVPUSH Q4H PRN PRN Reason: sb/p >150 Hydrochlorothiazide (Hydrochlorothiazide) 12.5 mg PO DAILY [facility] Last Admin: 08/30/17 08:08 Dose: 12.5 mg Levofloxacin/Dextrose 750 mg/ (Premix) 150 mls @ 100 mls/hr IV Q24H [facility] Last Admin: 03/28/18 21:58 Dose: 100 mls/hr Insulin Aspart (Novolog) 0 unit SUBCUT QIDACANDBED [facility]; Protocol Last Admin: 08/30/17 07:58 Dose: 4 units Insulin Detemir (Levemir) 22 unit SUBCUT BID [facility] Last Admin: 08/30/17 08:02 Dose: 22 units Levothyroxine Sodium (Synthroid) 50 mcg PO ACBRK [facility] Last Admin: 08/30/17 06:13 Dose: 50 mcg Methylprednisolone Sodium Succinate (Solu-Medrol) 40 mg IV Q12H [facility] Last Admin: 08/30/17 06:13 Dose: 40 mg Multivitamins (Thera) 1 each PO DAILY [facility] Last Admin: 08/30/17 08:06 Dose: 1 each Saccharomyces Boulardii (Florastor) 250 mg PO BID [facility] Last Admin: 08/30/17 08:06 Dose: 250 mg Sodium Chloride (Saline Flush) 10 ml FLUSH ASDIRECTED PRN PRN Reason: Keep Vein Open Last Admin: 08/27/17 18:16 Dose: 10 ml Tamsulosin HCl (Flomax) 0.4 mg PO BID [facility] Last Admin: 08/30/17 08:06 Dose: 0.4 mg Discontinued Medications Albuterol (Proventil Neb Soln) 2.5 mg NEB ONETIME ONE Stop: 08/27/17 18:05 Last Admin: 08/27/17 18:13 Dose: 2.5 mg Azithromycin (Zithromax) 500 mg PO DAILY ONE Stop: 08/27/17 19:16 Last Admin: 08/27/17 19:24 Dose: 500 mg Enalapril Maleate (Vasotec) 5 mg PO DAILY [facility] Last Admin: 08/29/17 11:22 Dose: 5 mg Guaifenesin (Mucinex) 600 mg PO ONETIME ONE Stop: 08/27/17 18:05 Last Admin: 08/27/17 18:16 Dose: 600 mg Ceftriaxone Sodium 2 gm/ (Sodium Chloride) 100 mls @ 100 mls/hr IV ONETIME ONE Stop: 08/27/17 20:14 Last Admin: 08/27/17 19:26 Dose: 100 mls/hr Sodium Chloride (Normal Saline) 1,000 mls @ 250 mls/hr IV .BOLUS ONE Stop: 08/28/17 00:00 Last Admin: 08/27/17 20:28 Dose: 250 mls/hr Piperacillin Sod/Tazobactam (Sod 4.5 gm/ Sodium Chloride) 100 mls @ 25 mls/hr IV Q8H [facility] Stop: 08/28/17 11:00 Last Admin: 08/28/17 14:42 Dose: 25 mls/hr Piperacillin Sod/Tazobactam (Sod 4.5 gm/ Sodium Chloride) 100 mls @ 200 mls/hr IV ONETIME ONE Stop: 08/27/17 22:14 Last Admin: 08/27/17 23:18 Dose: 200 mls/hr Sodium Chloride (Normal Saline) 1,000 mls @ 250 mls/hr IV ASDIRECTED [facility] Stop: 08/28/17 08:00 Last Admin: 08/28/17 01:49 Dose: 250 mls/hr Piperacillin Sod/Tazobactam (Sod 4.5 gm/ Dextrose/Water) 100 mls @ 25 mls/hr IV Q8H [facility] Last Admin: 08/29/17 06:42 Dose: 25 mls/hr Insulin Aspart (Novolog) 0 unit SUBCUT QIDACANDBED [facility]; Protocol Last Admin: 08/30/17 09:46 Dose: Not Given Insulin Detemir (Levemir) 11 unit SUBCUT BID [facility] Last Admin: 08/28/17 21:27 Dose: 11 units Pneumococcal Polyvalent Vaccine (Pneumovax 23) 0.5 ml IM .ONCE ONE Stop: 08/27/17 22:08 Prednisone (Prednisone) 40 mg PO ONETIME ONE Stop: 08/27/17 19:17 Last Admin: 08/27/17 19:24 Dose: 40 mg Saccharomyces Boulardii (Florastor) 250 mg PO DAILY [facility] Last Admin: 08/29/17 16:29 Dose: Not Given - Exam Quality Assessment: DVT Prophylaxis (SIDNEY [place]) General: Alert, Oriented, Cooperative, No Acute Distress HEENT: Pupils Equal, Pupils Reactive, EOMI, Mucous Membr. Moist/[place] Neck: Supple Lungs: Normal Respiratory Effort, Crackles, Wheezing Cardiovascular: Regular Rate, Regular Rhythm, Murmurs (systolic) GI/Abdominal Exam: Normal Bowel Sounds, Soft, Non-Tender, No Organomegaly, No Distention, No Abnormal Bruit, No Mass, Pelvis Stable (Male) Exam: Deferred Back Exam: Normal Inspection, Full Range of Motion Extremities: Normal Inspection, Normal Range of Motion, Non-Tender, Normal Capillary Refill, Pedal Edema (1+ bilateral extremities) Peripheral Pulses: 1+: Posterior Tibial (L), Posterior Tibial (R), Dorsalis Pedis (L), Dorsalis Pedis (R) Skin: Warm, Dry, Intact Neurological: No New Focal Deficit Psy/Mental Status: Alert, Normal Affect, Normal Mood - Problem List & Annotations (1) CAP (community acquired pneumonia) SNOMED Code(s): 206632041 Code(s): J18.9 - PNEUMONIA, UNSPECIFIED ORGANISM Status: Acute Priority: High Current Visit: Yes Qualifiers: Laterality: right Lung location: middle lobe of lung Qualified Code(s): J18.1 - Lobar pneumonia, unspecified organism (2) Diabetes mellitus SNOMED Code(s): 84648503 Code(s): E11.9 - TYPE 2 DIABETES MELLITUS WITHOUT COMPLICATIONS Status: Chronic Priority: Low Current Visit: Yes Qualifiers: Diabetes mellitus type: type 2 Diabetes mellitus buttermaker continuous churn insulin use: unspecified care home insulin use status Diabetes mellitus complication status : with unspecified complications Qualified Code(s): E11.8 - Type 2 diabetes mellitus with unspecified complications (3) Thrombocytopenia SNOMED Code(s): 991740843 Code(s): D69.6 - THROMBOCYTOPENIA, UNSPECIFIED Status: Acute Priority: Medium Current Visit: Yes (4) Hypothyroidism SNOMED Code(s): 03601856 Code(s): E03.9 - HYPOTHYROIDISM, UNSPECIFIED Status: Chronic Priority: Low Current Visit: No Qualifiers: Hypothyroidism type: unspecified Qualified Code(s): E03.9 - Hypothyroidism , unspecified (5) Hypertension SNOMED Code(s): 16450801 Code(s): I10 - ESSENTIAL (PRIMARY) HYPERTENSION Status: Chronic Priority : Low Current Visit: No Qualifiers: Hypertension type: unspecified Qualified Code(s): I10 - Essential (primary ) hypertension (6) Hyperlipidemia SNOMED Code(s): 78066927 Code(s): E78.5 - HYPERLIPIDEMIA, UNSPECIFIED Status: Chronic Priority: Low Current Visit: No Qualifiers: Hyperlipidemia type: unspecified Qualified Code(s): E78.5 - Hyperlipidemia , unspecified - Problem List Review Problem List Initiated/Reviewed/Updated: Yes - My Orders Last 24 Hours: My Active Orders 08/29/17 15:37 Consult to Case Management [CONS] Routine OT Evaluation and Treatment [CONS] Routine PT Evaluation and Treatment [CONS] Routine RT Acapella [RESPCARE] Routine 08/29/17 16:00 Famotidine [Pepcid] 20 mg PO BID 08/29/17 16:15 Saccharomyces Boulardii [Florastor] 250 mg PO BID 08/30/17 11:14 Antiembolic Hose [OM.PC] Routine 08/31/17 05:11 BASIC METABOLIC PANEL,BMP [CHEM] AM CBC WITH AUTO DIFF [HEME] AM CRP [C-REACTIVE PROTEIN] [CHEM] AM MAGNESIUM [CHEM] AM 09/01/17 05:11 Chest 2V [CR] AM BASIC METABOLIC PANEL,BMP [CHEM] AM CBC WITH AUTO DIFF [HEME] AM CRP [C-REACTIVE PROTEIN] [CHEM] AM MAGNESIUM [CHEM] AM - Plan Plan:: I/P: Acute Pneumonia- Bibasilar via chest Xray 08/28/17 -RML infiltrate with immune compromise -Supplemental 02 PRN to keep saturations >90% -RT/Nebs/IS/FV -CXR 08/30/17--> Slight increase in density, stable, persistent PNA per Dr. Dockery -Repeat CXR 09/01/17 -Mycoplasma, S. pneumo, Influenza--> all negative -Resp viral panel positive for Metapneumovirus--> Droplet and Respiratory precautions -Continue Levoquin IV, D/C Zosyn -Solu-Medrol 40mg q12 started 08/29/17 -IVF as needed -Pneumovax 23 given 08/27/17 -CRP 2.6-->2.1-->1.3 -PT for walking, encourage sitting up and staying active Borderline neutropenia -WBC 2.8-->2.63-->2.92 -Reverse isolation Thrombocytopenia -Plt 88-->87-->93 Diabetes Mellitus type II -Novolog/Levemir Diarrhea -Probiotics BID Chronic: HLD HTN--> Increased at home Vasotec from 5mg-->10mg, Hydralazine PRN BPH Hypothyroid History of NHL History of prostate cancer History of Herpetic Neuralgia Other: Home Meds Daily Labs DVT prophylaxis --> Lovenox, SIDNEY h[place] GI prophylaxis--> Pepcid 20 BID RT/PT/OT CM for assist with DC planning PCP is Westley Alberto at [place] Patient is Full code status.
[2017-08-30] MEDS: Enoxaparin 40 MG/0.4 ML Syringe SUBCUT SCH (11:59)
[2017-08-30] MEDS: Levofloxacin/Dextrose 5%-Water 750 MG in Premix Bag 1 BAG IV SCH (21:37)
[2017-08-31] MEDS: methylPREDNISolone Sodium Succinate 40 MG/1 ML SDV IV SCH (06:14)
[2017-08-31] MEDS: Levothyroxine 50 MCG Tab PO SCH (06:14)
[2017-08-31] MEDS ORDERED: Insulin Aspart 100 Units/ML 3 ML Pen SUBCUT SCH (07:00)
[2017-08-31] MEDS: Insulin Detemir 100 Units/ML 3 ML Pen SUBCUT SCH (09:14)
[2017-08-31] MEDS: Insulin Aspart 100 Units/ML 3 ML Pen SUBCUT SCH ×2 (09:14→12:19)
[2017-08-31] MEDS: Multivitamins,Therapeutic Tab PO SCH (09:15)
[2017-08-31] MEDS: Tamsulosin 0.4 MG Cap.ER PO SCH (09:15)
[2017-08-31] MEDS: guaiFENesin 600 MG Tab.ER PO SCH (09:15)
[2017-08-31] MEDS: Saccharomyces Boulardii (Probiotic) 250 MG Cap PO SCH (09:15)
[2017-08-31] MEDS: Famotidine 20 MG Tab PO SCH (09:15)
[2017-08-31] MEDS: Cyanocobalamin (Vitamin B12) 1,000 MCG Tab PO SCH (09:15)
[2017-08-31] MEDS: Hydrochlorothiazide 12.5 MG Cap PO SCH (09:16)
--- NOTE | 2017-08-31 11:16 | PCM.DCSUM1 ---
Discharge Summary - Hospital Course Free Text/Narrative:: 77 year old male with PMH of DM type 2, NHL, prostate cancer presents with generalized weakness associated with a productive cough. He may or may not have had a fever. He denies nausea and vomiting. There has been decreased oral ingestion of solid food and liquids. He has a beginning infiltrate in the right middle lobe and will be admitted for PNA. MS telemetry, full code. - Discharge Data Discharge Date: 08/31/17 (Admit date 08/27/17) Discharge Disposition: Home, Self-Care 01 Condition: Good - Discharge Diagnosis/Problem(s) (1) CAP (community acquired pneumonia) SNOMED Code(s): 481479666 ICD Code: J18.9 - PNEUMONIA, UNSPECIFIED ORGANISM Status: Acute Priority : High Current Visit: Yes Qualifiers: Laterality: right Lung location: middle lobe of lung Qualified Code(s): J18.1 - Lobar pneumonia, unspecified organism (2) Diabetes mellitus SNOMED Code(s): 99103863 ICD Code: E11.9 - TYPE 2 DIABETES MELLITUS WITHOUT COMPLICATIONS Status: Chronic Priority: Low Current Visit: Yes Qualifiers: Diabetes mellitus type: type 2 Diabetes mellitus terminal worker insulin use: unspecified terminal worker insulin use status Diabetes mellitus complication status : with unspecified complications Qualified Code(s): E11.8 - Type 2 diabetes mellitus with unspecified complications (3) Thrombocytopenia SNOMED Code(s): 185859467 ICD Code: D69.6 - THROMBOCYTOPENIA, UNSPECIFIED Status: Acute Priority: Medium Current Visit: Yes (4) Hypothyroidism SNOMED Code(s): 98219613 ICD Code: E03.9 - HYPOTHYROIDISM, UNSPECIFIED Status: Chronic Priority: Low Current Visit: No Qualifiers: Hypothyroidism type: unspecified Qualified Code(s): E03.9 - Hypothyroidism , unspecified (5) Hypertension SNOMED Code(s): 86720776 ICD Code: I10 - ESSENTIAL (PRIMARY) HYPERTENSION Status: Chronic Priority : Low Current Visit: No Qualifiers: Hypertension type: unspecified Qualified Code(s): I10 - Essential (primary ) hypertension (6) Hyperlipidemia SNOMED Code(s): 48999715 ICD Code: E78.5 - HYPERLIPIDEMIA, UNSPECIFIED Status: Chronic Priority: Low Current Visit: No Qualifiers: Hyperlipidemia type: unspecified Qualified Code(s): E78.5 - Hyperlipidemia , unspecified - Patient Summary/Data Operative Procedure(s) Performed: none Complications: none Consults: Consultations 08/29/17 15:37 Consult to Case Management [CONS] Routine OT Evaluation and Treatment [CONS] Routine PT Evaluation and Treatment [CONS] Routine Labs Pending at D/C: none Recommended Follow-up Testing/Procedures: Follow up with PCP, Dr. Alberto, in [address] Alberto, will have CXR in 2 weeks and f/u with him. Planned Operative Procedure(s) after DC: none Hospital Course: I/P: Acute Pneumonia- Bibasilar via chest Xray 08/28/17 -RML infiltrate with immune compromise -Supplemental 02 PRN to keep saturations >90% -RT/Nebs/IS/FV -CXR 08/30/17 and 08/31/17--> Slight increase in density, stable, persistent PNA per Dr. Dockery -CXR recommended in 2 weeks. Prescription written. -Mycoplasma, S. pneumo, Influenza--> all negative -Resp viral panel positive for Metapneumovirus--> Droplet and Respiratory precautions -Continue Levoquin IV, D/C Zosyn--> D/C IV Levoquin, start PO at home x5 days. -Solu-Medrol 40mg q12 started 08/29/17--> D/C today. -IVF as needed--> D/C today. -Pneumovax 23 given 08/27/17 -CRP 2.6-->2.1-->1.3-->0.4 -PT for walking, encourage sitting up and staying active Borderline neutropenia -WBC 2.8-->2.63-->2.92-->4.96 -Reverse isolation Thrombocytopenia -Plt 88-->87-->93-->112 Diabetes Mellitus type II -Novolog/Levemir Diarrhea -Probiotics BID--> D/C Chronic: HLD HTN--> Increased at home Vasotec from 5mg-->10mg, Hydralazine PRN--> Continue Vasotec 10mg at home, D/C Hydralazine. BPH Hypothyroid History of NHL History of prostate cancer History of Herpetic Neuralgia Other: Home Meds Daily Labs DVT prophylaxis --> Lovenox, SIDNEY galavize --> D/C GI prophylaxis--> Pepcid 20 BID RT/PT/OT CM for assist with DC planning PCP is Westley Alberto at [place] Patient is Full code status. - Patient Instructions Diet: Diabetic Diet Activity: As Tolerated Driving: May Drive Today Showering/Bathing: May Shower Notify Provider of: Fever, Increased Pain, Nausea and/or Vomiting (worsening cough/shortness of breath) - Discharge Plan Prescriptions/Med Rec: Loratadine/Pseudoephedrine [Claritin-D 12 Hour] 1 tab PO Q12HR #20 tab.er Enalapril [Vasotec] 10 mg PO DAILY #30 tablet guaiFENesin [Mucinex] 600 mg PO BID #30 tab.er Levofloxacin [Levaquin] 500 mg PO DAILY #5 tab Home Medications: Home Meds Levothyroxine [Synthroid] 50 mcg PO DAILY 04/11/15 [History] metFORMIN [Glucophage] 500 mg PO BIDMEALS #60 tablet 04/12/15 [Rx] Insulin Glarg,Human.Rec.Analog [Lantus] 44 unit SUBCUT DAILY 06/18/15 [History] Hydrochlorothiazide 12.5 mg PO DAILY 08/27/17 [History] Tamsulosin [Flomax] 0.4 mg PO BID 08/27/17 [History] Cholecalciferol (Vitamin D3) [Vitamin D3] 1,000 units PO DAILY 08/29/17 [History ] Cyanocobalamin (Vitamin B12) [Vitamin B12] 1,000 mcg PO DAILY 08/29/17 [History] Multivitamins,Ther w-Minerals [Multivitamins with Minerals HP] 1 tab PO DAILY [History] Triamcinolone Acetonide [Nasacort AQ [place]] 1 spray NASBOTH BID 08/29/17 [ History] Insulin Aspart [Novolog Flexpen] 12 units SQ TIDMEALS 08/30/17 [History] Enalapril [Vasotec] 10 mg PO DAILY #30 tablet 08/31/17 [Rx] Levofloxacin [Levaquin] 500 mg PO DAILY #5 tab 08/31/17 [Rx] Loratadine/Pseudoephedrine [Claritin-D 12 Hour] 1 tab PO Q12HR #20 tab.er [Rx] guaiFENesin [Mucinex] 600 mg PO BID #30 tab.er 08/31/17 [Rx] Patient Handouts: Community-Acquired Pneumonia, Adult, Immunosuppression, Community-Acquired Pneumonia, Adult, [id number] Referrals: Westley Alberto MD [Primary Care Provider] - 09/04/17 8:10 am - Discharge Summary/Plan Comment DC Time >30 min.: Yes (50min) - General Info Date of Service: 08/31/17 Admission Dx/Problem (Free Text: Admission Diagnosis/Problem Admission Diagnosis/Problem Pneumonia Functional Status: Reports: Pain Controlled - Review of Systems General: Reports: No Symptoms. Denies: Fever, Weakness, Fatigue, Chills HEENT: Reports: No Symptoms Pulmonary: Reports: No Symptoms, Cough (improved). Denies: Shortness of Breath Cardiovascular: Reports: No Symptoms. Denies: Chest Pain, Orthopnea Gastrointestinal: Reports: Diarrhea (much improved). Denies: Abdominal Pain, Constipation, Decreased Appetite, Nausea, Vomiting Genitourinary: Reports: No Symptoms Musculoskeletal: Reports: No Symptoms Skin: Reports: No Symptoms Neurological: Reports: No Symptoms Psychiatric: Reports: No Symptoms - Patient Data Vitals - Most Recent: Last Vital Signs Temp 97.6 F 08/31/17 09:00 Pulse 67 08/31/17 09:00 Resp 16 08/31/17 09:00 BP 146/76 H 08/31/17 09:00 Pulse Ox 93 L 08/31/17 09:00 Weight - Most Recent: 222 lb 12.8 oz I&O - Last 24 hours: Intake & Output 08/30/17 08/31/17 08/31/17 22:59 06:59 14:59 Intake Total 1350 400 Balance 1350 400 Lab Results - Last 24 hrs: Laboratory Results - last 24 hr 08/30/17 08/30/17 08/30/17 Range/Units 11:20 16:49 21:16 WBC (4.23-9.07) K/mm3 RBC (4.63-6.08) M/mm3 Hgb (13.7-17.5) gm/L Hct (40.1-51.0) % MCV (79.0-92.2) fl MCH (25.7-32.2) pg MCHC (32.2-35.5) g/dl RDW Std Deviation (35.1-43.9) fL Plt Count (163-337) K/mm3 MPV (9.4-12.3) fl Neut % (Auto) (34.0-67.9) % Lymph % (Auto) (21.8-53.1) % Mccone % (Auto) (5.3-12.2) % Eos % (Auto) (0.8-7.0) Baso % (Auto) (0.1-1.2) % Neut # (Auto) (1.78-5.38) K/mm3 Lymph # (Auto) (1.32-3.57) K/mm3 Mccone # (Auto) (0.30-0.82) K/mm3 Eos # (Auto) (0.04-0.54) K/mm3 Baso # (Auto) (0.01-0.08) K/mm3 Manual Slide Review Sodium (136-145) mEq/L Potassium (3.5-5.1) mEq/L Chloride (98-107) mEq/L Carbon Dioxide (21-32) mEq/L Anion Gap (5-15) BUN (7-18) mg/dL Creatinine (0.7-1.3) mg/dL Est Cr Clr Drug Dosing mL/min Estimated GFR (MDRD) (>60) mL/min BUN/Creatinine Ratio (14-18) Glucose (83-115) mg/dL POC Glucose 352 H 343 H 386 H (83-110) mg/dL Calcium (8.5-10.1) mg/dL Magnesium (1.8-2.4) mg/dl C-Reactive Protein (<1.0) mg/dL 08/31/17 08/31/17 08/31/17 Range/Units 06:17 06:17 06:28 WBC 4.96 (4.23-9.07) K/mm3 RBC 3.51 L (4.63-6.08) M/mm3 Hgb 10.7 L (13.7-17.5) gm/L Hct 31.0 L (40.1-51.0) % MCV 88.3 (79.0-92.2) fl MCH 30.5 (25.7-32.2) pg MCHC 34.5 (32.2-35.5) g/dl RDW Std Deviation 43.4 (35.1-43.9) fL Plt Count 112 L (163-337) K/mm3 MPV 11.0 (9.4-12.3) fl Neut % (Auto) 76.0 H (34.0-67.9) % Lymph % (Auto) 12.5 L (21.8-53.1) % Mccone % (Auto) 10.1 (5.3-12.2) % Eos % (Auto) 0.2 L (0.8-7.0) Baso % (Auto) 0.2 (0.1-1.2) % Neut # (Auto) 3.77 (1.78-5.38) K/mm3 Lymph # (Auto) 0.62 L (1.32-3.57) K/mm3 Mccone # (Auto) 0.50 (0.30-0.82) K/mm3 Eos # (Auto) 0.01 L (0.04-0.54) K/mm3 Baso # (Auto) 0.01 (0.01-0.08) K/mm3 Manual Slide Review Normal smear Sodium 139 (136-145) mEq/L Potassium 4.3 (3.5-5.1) mEq/L Chloride 106 (98-107) mEq/L Carbon Dioxide 23 (21-32) mEq/L Anion Gap 14.3 (5-15) BUN 26 H (7-18) mg/dL Creatinine 1.1 (0.7-1.3) mg/dL Est Cr Clr Drug Dosing 65.39 mL/min Estimated GFR (MDRD) > 60 (>60) mL/min BUN/Creatinine Ratio 23.6 H (14-18) Glucose 246 H (83-115) mg/dL POC Glucose 250 H (83-110) mg/dL Calcium 9.0 (8.5-10.1) mg/dL Magnesium 1.9 (1.8-2.4) mg/dl C-Reactive Protein 0.4 (<1.0) mg/dL RALPH Results - Last 24 hrs: Microbiology 08/28/17 12:45 Aerobic Blood Culture - Preliminary Blood - Venous NO GROWTH AFTER 2 DAYS Anaerobic Blood Culture - Preliminary NO GROWTH AFTER 2 DAYS 08/28/17 12:52 Aerobic Blood Culture - Preliminary Blood - Venous - Lab Draw NO GROWTH AFTER 2 DAYS Anaerobic Blood Culture - Preliminary NO GROWTH AFTER 2 DAYS Med Orders - Current: Current Medications Albuterol (Proventil Neb Soln) 2.5 mg NEB Q4HRRT PRN PRN Reason: Shortness of Breath Albuterol/Ipratropium (Duoneb 3.0-0.5 Mg/3 Ml) 3 ml NEB QID PRN PRN Reason: Shortness of Breath Last Admin: 08/29/17 15:55 Dose: 3 ml Benzonatate (Tessalon Perles) 100 mg PO TID PRN PRN Reason: Cough Last Admin: 08/29/17 22:21 Dose: 100 mg Cyanocobalamin (Vitamin B12) 1,000 mcg PO DAILY [facility] Last Admin: 08/31/17 09:15 Dose: 1,000 mcg Dextrose/Water (Dextrose 50% In Water) 50 ml IVPUSH ASDIRECTED PRN PRN Reason: Hypoglycemia Enalapril Maleate (Vasotec) 10 mg PO DAILY [facility] Last Admin: 08/31/17 09:15 Dose: 10 mg Enoxaparin Sodium (Lovenox) 40 mg SUBCUT Q24H [facility] Last Admin: 08/30/17 11:59 Dose: 40 mg Famotidine (Pepcid) 20 mg PO BID [facility] Last Admin: 08/31/17 09:15 Dose: 20 mg Flunisolide (Nasalide Nasal [place]) 0 ml NASBOTH BID [facility] Last Admin: 08/31/17 09:16 Dose: 1 spray Guaifenesin (Mucinex) 600 mg PO BID [facility] Last Admin: 08/31/17 09:15 Dose: 600 mg Hydralazine HCl (Apresoline) 10 mg IVPUSH Q4H PRN PRN Reason: sb/p >150 Hydrochlorothiazide (Hydrochlorothiazide) 12.5 mg PO DAILY [facility] Last Admin: 08/31/17 09:16 Dose: 12.5 mg Levofloxacin/Dextrose 750 mg/ (Premix) 150 mls @ 100 mls/hr IV Q24H [facility] Last Admin: 08/30/17 21:37 Dose: 100 mls/hr Insulin Aspart (Novolog) 0 unit SUBCUT QIDACANDBED [facility]; Protocol Last Admin: 08/31/17 09:14 Dose: 9 units Insulin Detemir (Levemir) 22 unit SUBCUT BID [facility] Last Admin: 08/31/17 09:14 Dose: 22 unit Levothyroxine Sodium (Synthroid) 50 mcg PO ACBRK [facility] Last Admin: 08/31/17 06:14 Dose: 50 mcg Methylprednisolone Sodium Succinate (Solu-Medrol) 40 mg IV Q12H [facility] Last Admin: 08/31/17 06:14 Dose: 40 mg Multivitamins (Thera) 1 each PO DAILY [facility] Last Admin: 08/31/17 09:15 Dose: 1 each Saccharomyces Boulardii (Florastor) 250 mg PO BID [facility] Last Admin: 08/31/17 09:15 Dose: 250 mg Sodium Chloride (Saline Flush) 10 ml FLUSH ASDIRECTED PRN PRN Reason: Keep Vein Open Last Admin: 08/27/17 18:16 Dose: 10 ml Tamsulosin HCl (Flomax) 0.4 mg PO BID [facility] Last Admin: 08/31/17 09:15 Dose: 0.4 mg Discontinued Medications Albuterol (Proventil Neb Soln) 2.5 mg NEB ONETIME ONE Stop: 08/27/17 18:05 Last Admin: 08/27/17 18:13 Dose: 2.5 mg Azithromycin (Zithromax) 500 mg PO DAILY ONE Stop: 08/27/17 19:16 Last Admin: 08/27/17 19:24 Dose: 500 mg Enalapril Maleate (Vasotec) 5 mg PO DAILY [facility] Last Admin: 08/29/17 11:22 Dose: 5 mg Guaifenesin (Mucinex) 600 mg PO ONETIME ONE Stop: 08/27/17 18:05 Last Admin: 08/27/17 18:16 Dose: 600 mg Ceftriaxone Sodium 2 gm/ (Sodium Chloride) 100 mls @ 100 mls/hr IV ONETIME ONE Stop: 08/27/17 20:14 Last Admin: 08/27/17 19:26 Dose: 100 mls/hr Sodium Chloride (Normal Saline) 1,000 mls @ 250 mls/hr IV .BOLUS ONE Stop: 08/28/17 00:00 Last Admin: 08/27/17 20:28 Dose: 250 mls/hr Piperacillin Sod/Tazobactam (Sod 4.5 gm/ Sodium Chloride) 100 mls @ 25 mls/hr IV Q8H [facility] Stop: 08/28/17 11:00 Last Admin: 08/28/17 14:42 Dose: 25 mls/hr Piperacillin Sod/Tazobactam (Sod 4.5 gm/ Sodium Chloride) 100 mls @ 200 mls/hr IV ONETIME ONE Stop: 08/27/17 22:14 Last Admin: 08/27/17 23:18 Dose: 200 mls/hr Sodium Chloride (Normal Saline) 1,000 mls @ 250 mls/hr IV ASDIRECTED [facility] Stop: 08/28/17 08:00 Last Admin: 08/28/17 01:49 Dose: 250 mls/hr Piperacillin Sod/Tazobactam (Sod 4.5 gm/ Dextrose/Water) 100 mls @ 25 mls/hr IV Q8H [facility] Last Admin: 08/29/17 06:42 Dose: 25 mls/hr Insulin Aspart (Novolog) 0 unit SUBCUT QIDACANDBED [facility]; Protocol Last Admin: 08/30/17 09:46 Dose: Not Given Insulin Aspart (Novolog) 0 unit SUBCUT QIDACANDBED [facility]; Protocol Last Admin: 08/30/17 16:52 Dose: 8 units Insulin Aspart (Novolog) 12 unit SUBCUT TIDMEALS [facility] Insulin Detemir (Levemir) 11 unit SUBCUT BID [facility] Last Admin: 08/28/17 21:27 Dose: 11 units Pneumococcal Polyvalent Vaccine (Pneumovax 23) 0.5 ml IM .ONCE ONE Stop: 08/27/17 22:08 Prednisone (Prednisone) 40 mg PO ONETIME ONE Stop: 08/27/17 19:17 Last Admin: 08/27/17 19:24 Dose: 40 mg Saccharomyces Boulardii (Florastor) 250 mg PO DAILY [facility] Last Admin: 08/29/17 16:29 Dose: Not Given - Exam General: Reports: Alert, Oriented HEENT: Reports: Pupils Equal, Pupils Reactive, EOMI, Mucous Membr. Moist/[place] Neck: Reports: Supple Lungs: Reports: Clear to Auscultation, Normal Respiratory Effort Cardiovascular: Reports: Regular Rate, Regular Rhythm GI/Abdominal Exam: Normal Bowel Sounds, Soft, Non-Tender, No Organomegaly, No Distention, No Abnormal Bruit, No Mass, Pelvis Stable (Male) Exam: Deferred Rectal (Males) Exam: Deferred Back Exam: Reports: Normal Inspection, Full Range of Motion Extremities: Normal Inspection, Normal Range of Motion, Non-Tender, No Pedal Edema, Normal Capillary Refill Skin: Reports: Warm, Dry, Intact Neurological: Reports: No New Focal Deficit Psy/Mental Status: Reports: Alert, Normal Affect, Normal Mood
--- NOTE | 2017-08-31 11:50 | CR ---
Chest: Two views of the chest were obtained. Comparison: Prior chest x-ray of 08/30/17. Slight increased density is seen within both lung bases appearing fairly stable from recent exam. Upper lungs are clear. Heart size and mediastinum are normal. Diaphragms are flattened on the lateral view compatible with emphysematous change. Bony structures appear within normal limits for the patient's age. Impression: 1. Slight increased density within both lung bases which remains stable from prior chest x-ray. No new abnormality is otherwise seen. Diagnostic code #3
[2017-08-31] MEDS: Enoxaparin 40 MG/0.4 ML Syringe SUBCUT SCH (12:18)
[2017-08-31 14:58] VITALS: BP 160/79
== END 2017-08-31 17:26 | disposition home or self-care (01) | DRG 195 ==
LOC: JD.ED 17:25 → JD.MS 20:11
PROVIDERS: ADMIT Internal Medicine Cardiovascular Disease; ATTEND Internal Medicine Cardiovascular Disease
DX: J18.9 Pneumonia, unspecified organism (principal); J12.3 Human metapneumovirus pneumonia; E78.5 Hyperlipidemia, unspecified; D64.9 Anemia, unspecified; Z85.46 Personal history of malignant neoplasm of prostate; Z85.72 Personal history of non-Hodgkin lymphomas; E78.00 Pure hypercholesterolemia, unspecified; I10 Essential (primary) hypertension; D72.819 Decreased white blood cell count, unspecified; D69.6 Thrombocytopenia, unspecified; D70.9 Neutropenia, unspecified; N40.0 Benign prostatic hyperplasia without lower urinary tract symptoms; E03.9 Hypothyroidism, unspecified; R19.7 Diarrhea, unspecified; E11.9 Type 2 diabetes mellitus without complications; Z96.649 Presence of unspecified artificial hip joint; H54.7 Unspecified visual loss; Z88.8 Allergy status to other drugs, medicaments and biological substances; Z88.2 Allergy status to sulfonamides; Z79.84 Long term (current) use of oral hypoglycemic drugs; Z79.4 Long term (current) use of insulin; Z79.899 Other long term (current) drug therapy
CPT/HCPCS: 36415; 36600; 71046; 80053; 82803; 83605; 83880; 84443; 85025; 85379; 85610; 85730; 87804 ×2; 93005; 94640; 96365; 99285; A9270 ×3; J0696; J7030; J7050; 80048; 82947; 82962; 83036; 83735; 86140; 86738; 87040; 87486; 87581; 87633; 87798; 87899; 93010; 94667; 97161-GP; 97165-GO; 99284; J1650; J1815-GY; J1956; J2543; J2920; J7040

== ENCOUNTER 2019-07-22 14:50 | Inpatient (IN) | payer MEDICARE, BC ==
[2019-07-22] MEDS ORDERED: Albuterol/Ipratropium 3.0-0.5 MG/3 ML Neb Soln NEB ONE (15:32)
[2019-07-22] MEDS ORDERED: Sodium Chloride 0.9% 10 ML Syringe FLUSH PRN (15:32)
--- NOTE | 2019-07-22 15:39 | EDM.PDOC ---
ED HPI GENERAL MEDICAL PROBLEM - General Chief Complaint: Respiratory Problem Stated Complaint: POSS PNEUMONIA Time Seen by Provider: 07/22/19 15:05 Source of Information: Reports: Patient, Family (son), RN Notes Reviewed History Limitations: Reports: No Limitations - History of Present Illness INITIAL COMMENTS - FREE TEXT/NARRATIVE: Patient is a 79-year-old male who presents to the ED today for ongoing pneumonia. The patient was diagnosed with right lower lobe pneumonia on SundayJuly 15 in the clinic, and was given a prescription for ciprofloxacin, 250 mg twice daily. Patient is still finishing up this course of antibiotics. Patient notes that his cough is not gotten much better, and he is getting up some whitish sputum with this. The son notes that the patient's primary care doctor does not want him on any sort of cough suppressants as he wants the infiltrate coughed up and out. Patient is not febrile at time of triage, nor does he think he has had much of a fever at home. Patient does state however he is subjectively not feeling much better, he is complaining of generalized weakness, and not much appetite as well. Patient not complaining of any chest pain or chest pressure, he is not been diagnosed with any sort of COPD or asthma. But he does have an issue with recurrent pneumonia. Patient has a past history of cancer as well, lymphoma and prostate. - Related Data Allergies Allergy/AdvReac Type Severity Reaction Status Date / Time metformin [From Glucophage] Allergy Diarrhea Verified 01/16/19 11:43 [id number]-[id number] Reductase AdvReac Muscle Verified 01/16/19 10:57 Inhibitor Aches sulfamethoxazole AdvReac Tachycardia Verified 01/16/19 10:57 [From Bactrim] trimethoprim [From Bactrim] AdvReac Tachycardia Verified 01/16/19 10:57 Home Meds: Home Meds Insulin Glarg,Human.Rec.Analog [Lantus] 68 unit SUBCUT DAILY 06/18/15 [History] Insulin Aspart [Novolog Flexpen] 0 units SQ TIDMEALS 08/30/17 [History] Albuterol [Proventil HFA] 2 puff INH Q4H PRN #1 inhaler 01/16/19 [Rx] Ascorbic Acid [Vitamin C with Kathrine Hips] 1,000 mg PO DAILY 01/16/19 [History] Cholecalciferol (Vitamin D3) [Vitamin D3] 5,000 intnl unit PO DAILY 01/16/19 [ History] Cyanocobalamin/Folic Acid [Vitamin D52-Dptse Acid] 1,000 mcg PO DAILY 01/16/19 [ History] Enalapril [Vasotec] 5 mg PO DAILY 01/16/19 [History] Levothyroxine [Synthroid] 50 mcg PO DAILY 01/16/19 [History] Multivit-Min/FA/Lycopen/Lutein [Centrum Silver Tablet] 1 tab PO DAILY 01/16/19 [ History] guaiFENesin [Mucinex] 600 mg PO BID PRN 01/16/19 [History] Acetaminophen [Tylenol] 500 mg PO ASDIRECTED 07/22/19 [History] Ciprofloxacin HCl [Cipro] 250 mg PO BID 07/22/19 [History] Methylcellulose [Fiber] 1 cap PO DAILY 07/22/19 [History] Past Medical History HEENT History: Reports: Impaired Vision Other HEENT History: wears glasses Cardiovascular History: Reports: High Cholesterol, Hypertension Respiratory History: Reports: Pneumonia, Recurrent Gastrointestinal History: Reports: Diverticulosis Genitourinary History: Reports: Other (See Below) Other Genitourinary History: frequency, prostate cancer, prostate seed therapy Endocrine/Metabolic History: Reports: Diabetes, Type II, Hypothyroidism Hematologic History: Reports: Other (See Below) Other Hematologic History: non-hodgkin lymphoma, thrombocytopenia Oncologic (Cancer) History: Reports: Hodgkin's Lymphoma (Non-hodkin's lymphoma) , Prostate Other Oncologic History: seed implants and radiation Dermatologic History: Reports: Other (See Below) Other Dermatologic History: post herpetic neuralgia - Infectious Disease History Infectious Disease History: Reports: Chicken Pox, Measles, Mumps, Shingles - Past Surgical History GI Surgical History: Reports: Colonoscopy, Hernia Repair/Other Musculoskeletal Surgical History: Reports: Hip Replacement Other Musculoskeletal Surgeries/Procedures:: bilateral hip replacement Social & Family History - Family History Family Medical History: Noncontributory - Tobacco Use Smoking Status *Q: Never Smoker - Caffeine Use Caffeine Use: Reports: Soda, Tea - Recreational Drug Use Recreational Drug Use: No ED ROS GENERAL - Review of Systems Review Of Systems: See Below Constitutional: Reports: Malaise (generalized), Weakness (generalized), Decreased Appetite. Denies: Fever, Chills Respiratory: Reports: Cough, Sputum. Denies: Shortness of Breath, Wheezing Cardiovascular: Denies: Chest Pain GI/Abdominal: Denies: Abdominal Pain, Nausea, Vomiting Neurological: Denies: Headache ED EXAM, GENERAL - Physical Exam Exam: See Below Exam Limited By: No Limitations General Appearance: Alert, WD/WN, No Apparent Distress Throat/Mouth: Normal Inspection, Normal Lips, Normal Teeth, Normal Gums, Normal Oropharynx, Normal Voice, No Airway Compromise Head: Atraumatic Neck: Normal Inspection Respiratory/Chest: No Respiratory Distress, Lungs Clear, Normal Breath Sounds, No Accessory Muscle Use, Chest Non-Tender Cardiovascular: Normal Peripheral Pulses, Regular Rate, Rhythm, No Murmur, Other (slight 1+ pitting edema to bilateral ankles) Peripheral Pulses: 3+: Radial (L), Radial (R), Dorsalis Pedis (L), Dorsalis Pedis (R) GI/Abdominal: Normal Bowel Sounds, Soft, Non-Tender, No Distention, No Mass Extremities: Normal Inspection, Normal Capillary Refill Neurological: Alert, Oriented, Normal Cognition, No Motor/Sensory Deficits Psychiatric: Normal Affect, Normal Mood Skin Exam: Warm, Dry, Intact, Pallor (generalized) EKG INTERPRETATION EKG Date: 07/22/19 Time: 15:42 Rhythm: NSR Rate (Beats/Min): 99 [place]: Normal P-Wave: Present QRS: Normal ST-T: Normal QT: Normal EKG Interpretation Comments: No acute ischemic changes noted. Reviewed by myself and Dr. Julian. Course - Vital Signs Last Recorded V/S: Last Vital Signs Temp 98.1 F 07/22/19 15:03 Pulse 104 H 07/22/19 15:03 Resp 33 H 07/22/19 15:03 BP 158/83 H 07/22/19 15:03 Pulse Ox 91 L 07/22/19 15:49 - Orders/Labs/Meds Orders: Active Orders 24 hr Category Date Time Status Admission Status [Patient Status] [ADT] Routine ADT 07/22/19 18:06 Ordered EKG Documentation Completion [RC] STAT Care 07/22/19 15:27 Active Peripheral IV Care [RC] . DIRECTED Care 07/22/19 15:32 Active RT Aerosol Therapy [RC] ASDIRECTED Care 07/22/19 15:32 Active Chest 2V [CR] Stat Exams 07/22/19 15:27 Taken CULTURE BLOOD [BC] Stat Lab 07/22/19 15:59 Received CULTURE BLOOD [BC] Stat Lab 07/22/19 16:08 Received Sodium Chloride 0.9% [Normal Saline] 1,000 ml Med 07/22/19 17:32 Active IV ONETIME Sodium Chloride 0.9% [Saline Flush] Med 07/22/19 15:32 Active 10 ml FLUSH ASDIRECTED PRN Blood Culture x2 Reflex Set [OM.PC] Stat Oth 07/22/19 15:30 Ordered Peripheral IV Insertion Adult [OM.PC] Stat Oth 07/22/19 15:32 Ordered Medication Orders Sodium Chloride (Normal Saline) 1,000 mls @ 999 mls/hr IV ONETIME ONE Stop: 07/22/19 18:32 Sodium Chloride (Saline Flush) 10 ml FLUSH ASDIRECTED PRN PRN Reason: Keep Vein Open Labs: Laboratory Tests 07/22/19 07/22/19 07/22/19 Range/Units 15:59 15:59 15:59 WBC 12.00 H (4.23-9.07) K/mm3 RBC 3.73 L (4.63-6.08) M/mm3 Hgb 11.3 L (13.7-17.5) gm/dl Hct 35.2 L (40.1-51.0) % MCV 94.4 H (79.0-92.2) fl MCH 30.3 (25.7-32.2) pg MCHC 32.1 L (32.2-35.5) g/dl RDW Std Deviation 49.3 H (35.1-43.9) fL Plt Count 65 L (163-337) K/mm3 MPV 11.1 (9.4-12.3) fl Neutrophils % (Manual) 88 H (40-60) % Band Neutrophils % 0 (0-10) % Lymphocytes % (Manual) 8 L (20-40) % Atypical Lymphs % 0 % Monocytes % (Manual) 4 (2-10) % Eosinophils % (Manual) 0 L (0.8-7.0) % Basophils % (Manual) 0 L (0.2-1.2) Platelet Estimate Marked dec Plt Morphology Comment Normal RBC Morph Comment Normal Sodium 140 (136-145) mEq/L Potassium 4.6 (3.5-5.1) mEq/L Chloride 104 (98-107) mEq/L Carbon Dioxide 21 (21-32) mEq/L Anion Gap 19.6 H (5-15) BUN 33 H (7-18) mg/dL Creatinine 1.4 H (0.7-1.3) mg/dL Est Cr Clr Drug Dosing 46.96 mL/min Estimated GFR (MDRD) 49 (>60) mL/min BUN/Creatinine Ratio 23.6 H (14-18) Glucose 211 H (83-115) mg/dL Lactic Acid (0.4-2.0) mmol/L Calcium 9.4 (8.5-10.1) mg/dL Total Bilirubin 1.1 H (0.2-1.0) mg/dL AST 23 (15-37) U/L ALT 19 (16-63) U/L Alkaline Phosphatase 92 (46-116) U/L Troponin I 0.025 (0.00-0.056) ng/mL NT-Pro-B Natriuret Pep 1514 H (0-450) pg/mL Total Protein 6.7 (6.4-8.2) g/dl Albumin 3.2 L (3.4-5.0) g/dl Globulin 3.5 gm/dL Albumin/Globulin Ratio 0.9 L (1-2) 07/22/19 Range/Units 15:59 WBC (4.23-9.07) K/mm3 RBC (4.63-6.08) M/mm3 Hgb (13.7-17.5) gm/dl Hct (40.1-51.0) % MCV (79.0-92.2) fl MCH (25.7-32.2) pg MCHC (32.2-35.5) g/dl RDW Std Deviation (35.1-43.9) fL Plt Count (163-337) K/mm3 MPV (9.4-12.3) fl Neutrophils % (Manual) (40-60) % Band Neutrophils % (0-10) % Lymphocytes % (Manual) (20-40) % Atypical Lymphs % % Monocytes % (Manual) (2-10) % Eosinophils % (Manual) (0.8-7.0) % Basophils % (Manual) (0.2-1.2) Platelet Estimate Plt Morphology Comment RBC Morph Comment Sodium (136-145) mEq/L Potassium (3.5-5.1) mEq/L Chloride (98-107) mEq/L Carbon Dioxide (21-32) mEq/L Anion Gap (5-15) BUN (7-18) mg/dL Creatinine (0.7-1.3) mg/dL Est Cr Clr Drug Dosing mL/min Estimated GFR (MDRD) (>60) mL/min BUN/Creatinine Ratio (14-18) Glucose (83-115) mg/dL Lactic Acid 1.6 (0.4-2.0) mmol/L Calcium (8.5-10.1) mg/dL Total Bilirubin (0.2-1.0) mg/dL AST (15-37) U/L ALT (16-63) U/L Alkaline Phosphatase (46-116) U/L Troponin I (0.00-0.056) ng/mL NT-Pro-B Natriuret Pep (0-450) pg/mL Total Protein (6.4-8.2) g/dl Albumin (3.4-5.0) g/dl Globulin gm/dL Albumin/Globulin Ratio (1-2) Meds: Medications Generic Name Dose Route Start Last Admin Trade Name Freq PRN Reason Stop Dose Admin Sodium Chloride 1,000 mls @ 999 mls/hr 07/22/19 17:32 Normal Saline IV 07/22/19 18:32 ONETIME ONE Sodium Chloride 10 ml 07/22/19 15:32 Saline Flush FLUSH ASDIRECTED PRN Keep Vein Open Discontinued Medications Generic Name Dose Route Start Last Admin Trade Name Freq PRN Reason Stop Dose Admin Albuterol/Ipratropium 3 ml 07/22/19 15:32 07/22/19 15:49 Duoneb 3.0-0.5 Mg/3 Ml NEB 07/22/19 15:33 3 ml ONETIME ONE Administration - Re-Assessments/Exams Free Text/Narrative Re-Assessment/Exam: 07/22/19 18:07 Patient presents to the ER for ongoing pneumonia type symptoms. Chest x-ray still suggestive of the right lower lobe pneumonia. Labs are also just above this with elevated white count of 12,000, patient's BNP is also elevated at 1500 , he is not on any sort of Lasix or water pill. Patient is dry as well as anion gap is 19. I did order some IV fluids, and I do believe the patient would benefit from inpatient admission at this time for ongoing pneumonia and heart failure state. I did call Dr. Fletcher and he is excepting this patient for this at this time. Departure - Departure Time of Disposition: 18:09 Disposition: Admitted As Inpatient 66 Condition: Fair Clinical Impression: Elevated brain natriuretic peptide (BNP) level Pneumonia Qualifiers: Pneumonia type: due to unspecified organism Laterality: right Lung location: lower lobe of lung Qualified Code(s): J18.9 - Pneumonia, unspecified organism - Discharge Information *PRESCRIPTION DRUG MONITORING PROGRAM REVIEWED*: No *COPY OF PRESCRIPTION DRUG MONITORING REPORT IN PATIENT JAVI: No Referrals: Westley Alberto MD [Primary Care Provider] - Forms: ED Department Discharge Sepsis Event Note - Evaluation Sepsis Screening Result: No Definite Risk - Focused Exam Vital Signs: Vital Signs Temp Pulse Resp BP Pulse Ox Pulse Ox 07/22/19 15:49 91 L 07/22/19 15:03 98.1 F 104 H 33 H 158/83 H 92 L Date Exam was Performed: 07/22/19 Time Exam was Performed: 18:07 - My Orders Last 24 Hours: My Active Orders 07/22/19 15:27 EKG Documentation Completion [RC] STAT Chest 2V [CR] Stat 07/22/19 15:30 Blood Culture x2 Reflex Set [OM.PC] Stat 07/22/19 15:32 Peripheral IV Care [RC] . DIRECTED RT Aerosol Therapy [RC] ASDIRECTED Sodium Chloride 0.9% [Saline Flush] 10 ml FLUSH ASDIRECTED PRN Peripheral IV Insertion Adult [OM.PC] Stat 07/22/19 15:59 CULTURE BLOOD [BC] Stat 07/22/19 16:08 CULTURE BLOOD [BC] Stat 07/22/19 17:32 Sodium Chloride 0.9% [Normal Saline] 1,000 ml IV ONETIME 07/22/19 18:06 Admission Status [Patient Status] [ADT] Routine - Assessment/Plan Last 24 Hours: My Active Orders 07/22/19 15:27 EKG Documentation Completion [RC] STAT Chest 2V [CR] Stat 07/22/19 15:30 Blood Culture x2 Reflex Set [OM.PC] Stat 07/22/19 15:32 Peripheral IV Care [RC] . DIRECTED RT Aerosol Therapy [RC] ASDIRECTED Sodium Chloride 0.9% [Saline Flush] 10 ml FLUSH ASDIRECTED PRN Peripheral IV Insertion Adult [OM.PC] Stat 07/22/19 15:59 CULTURE BLOOD [BC] Stat 07/22/19 16:08 CULTURE BLOOD [BC] Stat 07/22/19 17:32 Sodium Chloride 0.9% [Normal Saline] 1,000 ml IV ONETIME 07/22/19 18:06 Admission Status [Patient Status] [ADT] Routine
[2019-07-22] MEDS ORDERED: Sodium Chloride 0.9% 1,000 ML IV ONE (17:32)
--- NOTE | 2019-07-22 20:00 | CR ---
Chest: 2 views of the chest were obtained. Comparison: Prior chest x-ray of 01/16/19. Increased density within the right lung base is seen. Lung markings are also mildly increased. Heart size is normal. Tortuous thoracic aorta is seen. Diaphragms are slightly flattened on the lateral view suggesting emphysematous change. Bony structures are within normal limits for the patient's age. Impression: 1. Increased central lung markings most likely representing bronchitis with atelectasis versus pneumonia within the right lung base. 2. Possible emphysematous change. Diagnostic code #3 This report was dictated in [place] Standard Time
[2019-07-22] MEDS ORDERED: Azithromycin 500 MG in Sodium Chloride 0.9% 250 ML IV ONE (20:03)
[2019-07-22] MEDS ORDERED: Albuterol 0.083% 2.5 MG/3 ML Neb Soln NEB PRN (20:05)
[2019-07-22] MEDS ORDERED: guaiFENesin 600 MG Tab.ER PO PRN (20:05)
[2019-07-22] MEDS ORDERED: Acetaminophen 325 MG Tab PO PRN (20:13)
--- NOTE | 2019-07-22 20:15 | PCM.HP.2 ---
H&P History of Present Illness - General Date of Service: 07/22/19 Admit Problem/Dx: Admission Diagnosis/Problem Admission Diagnosis/Problem Pneumonia - History of Present Illness Initial Comments - Free Text/Narative: 79-year-old male with history of type 2 diabetes, hypothyroidism, non-Hodgkin's lymphoma and prostate cancer that are in remission, presents to the emergency room with a two-week history of cough productive of white sputum, fatigue, and weakness. Patient was diagnosed with right lower lobe pneumonia on July 15 at the clinic and was prescribed ciprofloxacin 250 mg twice daily. Patient is still on the antibiotic and has not been improving. His son noted that he was getting weaker and encouraged him to come to the emergency room. Patient denies any fever or chills. He states that he sleeps sitting up in a chair until about 2:00 in the morning and then does lay down to go to bed. When he lays down he does have some coughing, but does not feel short of breath. Also does not cause him to cough all the time. He denies any PND. He has minimal dyspnea on exertion and is able to go up 1 flight of stairs, from his basement, without shortness of breath. He complains of chronic peripheral edema that is worse over the last few days. - Related Data Allergies/Adverse Reactions: Allergies Allergy/AdvReac Type Severity Reaction Status Date / Time metformin [From Glucophage] Allergy Diarrhea Verified 07/22/19 21:01 Fudqdth-Kyw-Nry Reductase AdvReac Muscle Verified 07/22/19 21:01 Inhibitor Aches sulfamethoxazole AdvReac Tachycardia Verified 07/22/19 21:01 [From Bactrim] trimethoprim [From Bactrim] AdvReac Tachycardia Verified 07/22/19 21:01 Home Medications: Home Meds Insulin Glarg,Human.Rec.Analog [Lantus] 68 unit SUBCUT DAILY 06/18/15 [History] Insulin Aspart [Novolog Flexpen] 0 units SQ TIDMEALS 08/30/17 [History] Albuterol [Proventil HFA] 2 puff INH Q4H PRN #1 inhaler 01/16/19 [Rx] Ascorbic Acid [Vitamin C with Kathrine Hips] 1,000 mg PO DAILY 01/16/19 [History] Cholecalciferol (Vitamin D3) [Vitamin D3] 5,000 intnl unit PO DAILY 01/16/19 [ History] Cyanocobalamin/Folic Acid [Vitamin U88-Otsmt Acid] 1,000 mcg PO DAILY 01/16/19 [ History] Enalapril [Vasotec] 5 mg PO DAILY 01/16/19 [History] Levothyroxine [Synthroid] 50 mcg PO DAILY 01/16/19 [History] Multivit-Min/FA/Lycopen/Lutein [Centrum Silver Tablet] 1 tab PO DAILY 01/16/19 [ History] guaiFENesin [Mucinex] 600 mg PO BID PRN 01/16/19 [History] Acetaminophen [Tylenol] 500 mg PO ASDIRECTED 07/22/19 [History] Ciprofloxacin HCl [Cipro] 250 mg PO BID 07/22/19 [History] Methylcellulose [Fiber] 1 cap PO DAILY 07/22/19 [History] Past Medical History HEENT History: Reports: Impaired Vision Other HEENT History: wears glasses Cardiovascular History: Reports: High Cholesterol, Hypertension Respiratory History: Reports: Pneumonia, Recurrent Gastrointestinal History: Reports: Diverticulosis Genitourinary History: Reports: Other (See Below) Other Genitourinary History: frequency, prostate cancer, prostate seed therapy Endocrine/Metabolic History: Reports: Diabetes, Type II, Hypothyroidism Hematologic History: Reports: Other (See Below) Other Hematologic History: non-hodgkin lymphoma, thrombocytopenia Oncologic (Cancer) History: Reports: Hodgkin's Lymphoma (Non-hodkin's lymphoma) , Prostate Other Oncologic History: seed implants and radiation Dermatologic History: Reports: Other (See Below) Other Dermatologic History: post herpetic neuralgia - Infectious Disease History Infectious Disease History: Reports: Chicken Pox, Measles, Mumps, Shingles - Past Surgical History GI Surgical History: Reports: Colonoscopy, Hernia Repair/Other Musculoskeletal Surgical History: Reports: Hip Replacement Other Musculoskeletal Surgeries/Procedures:: bilateral hip replacement Social & Family History - Family History Family Medical History: Noncontributory - Tobacco Use Smoking Status *Q: Never Smoker - Caffeine Use Caffeine Use: Reports: Tea - Recreational Drug Use Recreational Drug Use: No H&P Review of Systems - Review of Systems: Review Of Systems: Comprehensive ROS is negative, except as noted in HPI. Exam - Exam Exam: See Below - Vital Signs Vital Signs: Last Vital Signs Temp 98.1 F 07/22/19 15:03 Pulse 104 H 07/22/19 15:03 Resp 33 H 07/22/19 15:03 BP 158/83 H 07/22/19 15:03 Pulse Ox 94 L 07/22/19 17:00 Weight: 230 lb - Exam Quality Assessment: Supplemental Oxygen General: Alert, Oriented, 4 HEENT: Conjunctiva Clear, Hearing Intact, Mucosa Moist & [place] Neck: Supple, Trachea Midline, 2 Lungs: Normal Respiratory Effort, Decreased Breath Sounds, Rhonchi (Right lower lobe), Wheezing (Throughout both lung moore) Cardiovascular: Regular Rate, Regular Rhythm GI/Abdominal Exam: Normal Bowel Sounds, Soft, Non-Tender, No Distention Extremities: Normal Inspection, Normal Capillary Refill, Pedal Edema (1+ right 2 + left) Neurological: Cranial Nerves Intact Neuro Extensive - Mental Status: Alert, Oriented x3, Normal Mood/Affect, Normal Cognition Psychiatric: Alert, Normal Affect, Normal Mood - Patient Data Lab Results Last 24 hrs: Laboratory Results - last 24 hr 07/22/19 07/22/19 07/22/19 Range/Units 15:59 15:59 15:59 WBC 12.00 H (4.23-9.07) K/mm3 RBC 3.73 L (4.63-6.08) M/mm3 Hgb 11.3 L (13.7-17.5) gm/dl Hct 35.2 L (40.1-51.0) % MCV 94.4 H (79.0-92.2) fl MCH 30.3 (25.7-32.2) pg MCHC 32.1 L (32.2-35.5) g/dl RDW Std Deviation 49.3 H (35.1-43.9) fL Plt Count 65 L (163-337) K/mm3 MPV 11.1 (9.4-12.3) fl Neutrophils % (Manual) 88 H (40-60) % Band Neutrophils % 0 (0-10) % Lymphocytes % (Manual) 8 L (20-40) % Atypical Lymphs % 0 % Monocytes % (Manual) 4 (2-10) % Eosinophils % (Manual) 0 L (0.8-7.0) % Basophils % (Manual) 0 L (0.2-1.2) Platelet Estimate Marked dec Plt Morphology Comment Normal RBC Morph Comment Normal Sodium 140 (136-145) mEq/L Potassium 4.6 (3.5-5.1) mEq/L Chloride 104 (98-107) mEq/L Carbon Dioxide 21 (21-32) mEq/L Anion Gap 19.6 H (5-15) BUN 33 H (7-18) mg/dL Creatinine 1.4 H (0.7-1.3) mg/dL Est Cr Clr Drug Dosing 46.96 mL/min Estimated GFR (MDRD) 49 (>60) mL/min BUN/Creatinine Ratio 23.6 H (14-18) Glucose 211 H (83-115) mg/dL Lactic Acid (0.4-2.0) mmol/L Calcium 9.4 (8.5-10.1) mg/dL Total Bilirubin 1.1 H (0.2-1.0) mg/dL AST 23 (15-37) U/L ALT 19 (16-63) U/L Alkaline Phosphatase 92 (46-116) U/L Troponin I 0.025 (0.00-0.056) ng/mL NT-Pro-B Natriuret Pep 1514 H (0-450) pg/mL Total Protein 6.7 (6.4-8.2) g/dl Albumin 3.2 L (3.4-5.0) g/dl Globulin 3.5 gm/dL Albumin/Globulin Ratio 0.9 L (1-2) 1820 Range/Units 15:59 WBC (4.23-9.07) K/mm3 RBC (4.63-6.08) M/mm3 Hgb (13.7-17.5) gm/dl Hct (40.1-51.0) % MCV (79.0-92.2) fl MCH (25.7-32.2) pg MCHC (32.2-35.5) g/dl RDW Std Deviation (35.1-43.9) fL Plt Count (163-337) K/mm3 MPV (9.4-12.3) fl Neutrophils % (Manual) (40-60) % Band Neutrophils % (0-10) % Lymphocytes % (Manual) (20-40) % Atypical Lymphs % % Monocytes % (Manual) (2-10) % Eosinophils % (Manual) (0.8-7.0) % Basophils % (Manual) (0.2-1.2) Platelet Estimate Plt Morphology Comment RBC Morph Comment Sodium (136-145) mEq/L Potassium (3.5-5.1) mEq/L Chloride (98-107) mEq/L Carbon Dioxide (21-32) mEq/L Anion Gap (5-15) BUN (7-18) mg/dL Creatinine (0.7-1.3) mg/dL Est Cr Clr Drug Dosing mL/min Estimated GFR (MDRD) (>60) mL/min BUN/Creatinine Ratio (14-18) Glucose (83-115) mg/dL Lactic Acid 1.6 (0.4-2.0) mmol/L Calcium (8.5-10.1) mg/dL Total Bilirubin (0.2-1.0) mg/dL AST (15-37) U/L ALT (16-63) U/L Alkaline Phosphatase (46-116) U/L Troponin I (0.00-0.056) ng/mL NT-Pro-B Natriuret Pep (0-450) pg/mL Total Protein (6.4-8.2) g/dl Albumin (3.4-5.0) g/dl Globulin gm/dL Albumin/Globulin Ratio (1-2) Result Diagrams: 07/22/19 15:59 07/22/19 15:59 Sepsis Event Note - Evaluation Sepsis Screening Result: No Definite Risk - Focused Exam Vital Signs: Vital Signs Temp Pulse Resp BP Pulse Ox Pulse Ox Pulse Ox 07/22/19 17:00 94 L 07/22/19 15:49 91 L 07/22/19 15:03 98.1 F 104 H 33 H 158/83 H 92 L Date Exam was Performed: 07/22/19 Time Exam was Performed: 22:30 Problem List Initiated/Reviewed/Updated: Yes Orders Last 24hrs: Active Orders 24 hr Category Date Time Status Admission Status [Patient Status] [ADT] Routine ADT 07/22/19 18:06 Active Blood Glucose Check, Bedside [RC] WITHMEALSANDBED Care 07/22/19 20:03 Ordered Intake and Output Strict [RC] ASDIRECTED Care 07/22/19 20:14 Ordered Oxygen Therapy [RC] PRN Care 07/22/19 20:13 Ordered RT Aerosol Therapy [RC] ASDIRECTED Care 07/22/19 15:32 Active RT Chest Physiotherapy [RC] ASDIRECTED Care 07/22/19 20:14 Ordered RT Incentive Spirometry [RC] ASDIRECTED Care 07/22/19 20:14 Ordered Up With Assistance [RC] ASDIRECTED Care 07/22/19 20:13 Ordered VTE/DVT Education [RC] PER UNIT ROUTINE Care 07/22/19 20:13 Ordered Vital Signs [RC] Q4H Care 07/22/19 20:13 Ordered Echo Comp wo Cont [US] Routine Exams 07/23/19 Ordered BASIC METABOLIC PANEL,BMP [CHEM] AM Lab 07/23/19 05:11 Ordered CBC WITH AUTO DIFF [HEME] AM Lab 07/23/19 05:11 Ordered CULTURE BLOOD [BC] Stat Lab 07/22/19 15:59 Received CULTURE BLOOD [BC] Stat Lab 07/22/19 16:08 Received GLYCOSYLATED HEMOGLOBIN,HGBA1C [CHEM] AM Lab 07/23/19 05:11 Ordered INFLUENZA A,B, H1N1 BY PCR [MREF] Routine Lab 07/22/19 19:03 Ordered LEGIONELLA ANTIGEN [MREF] Routine Lab 07/22/19 20:14 Ordered RESPIRATORY PANEL Routine Lab 07/22/19 20:12 Ordered STREP PNEUMONIAE ANTIGEN [MREF] Routine Lab 07/22/19 20:14 Ordered TROPONIN I [CHEM] Stat Lab 07/22/19 20:02 Ordered TSH [CHEM] AM Lab 07/23/19 05:11 Ordered Acetaminophen [Tylenol] Med 07/22/19 20:13 Ordered 650 mg PO Q4H PRN Albuterol [Proventil Neb Soln] Med 07/22/19 20:05 Ordered 2.5 mg NEB Q2H PRN Albuterol/Ipratropium [DuoNeb 3.0-0.5 MG/3 ML] Med 07/22/19 21:00 Ordered 3 ml NEB Q6HRRT Azithromycin [Zithromax] 500 mg Med 07/22/19 20:03 Ordered Sodium Chloride 0.9% [Normal Saline] 250 ml IV ONETIME Enoxaparin [Lovenox] Med 07/23/19 09:00 Ordered 40 mg SUBCUT DAILY Insulin Glarg,Human.Rec.Analog [LantUS] Med 07/23/19 09:00 Ordered 50 unit SUBCUT DAILY Insulin Lispro [HumaLOG] Med 07/23/19 07:00 Ordered 8 unit SUBCUT TIDAC Insulin Lispro [HumaLOG] Med 07/22/19 22:00 Ordered See Protocol SUBCUT QIDACANDBED Levothyroxine [Synthroid] Med 07/23/19 09:00 Ordered 50 mcg PO DAILY Sodium Chloride 0.9% [Saline Flush] Med 07/22/19 15:32 Active 10 ml FLUSH ASDIRECTED PRN cefTRIAXone [Rocephin] 2 gm Med 07/22/19 20:15 Ordered Sodium Chloride 0.9% [Normal Saline] 100 ml IV Q24H guaiFENesin [Mucinex] Med 07/22/19 20:05 Ordered 600 mg PO BID PRN methylPREDNISolone Sod Succ [Solu-MEDROL] Med 07/22/19 20:15 Ordered 40 mg IVPUSH Q8H Blood Culture x2 Reflex Set [OM.PC] Stat Oth 07/22/19 15:30 Ordered Peripheral IV Insertion Adult [OM.PC] Stat Oth 07/22/19 15:32 Ordered Resuscitation Status Routine Resus Stat 07/22/19 20:13 Ordered Medication Orders Albuterol (Proventil Neb Soln) 2.5 mg NEB Q2H PRN PRN Reason: Wheezing Albuterol/Ipratropium (Duoneb 3.0-0.5 Mg/3 Ml) 3 ml NEB Q6HRRT EROS Guaifenesin (Mucinex) 600 mg PO BID PRN PRN Reason: Congestion Azithromycin 500 mg/ Sodium (Chloride) 250 mls @ 250 mls/hr IV ONETIME ONE Stop: 07/22/19 21:02 Ceftriaxone Sodium 2 gm/ (Sodium Chloride) 100 mls @ 200 mls/hr IV Q24H [facility] Insulin Glargine (Lantus) 50 unit SUBCUT DAILY [facility] Insulin Human Lispro (Humalog) 0 unit SUBCUT QIDACANDBED [facility]; Protocol Insulin Human Lispro (Humalog) 8 unit SUBCUT TIDAC [facility] Levothyroxine Sodium (Synthroid) 50 mcg PO DAILY@0600 EROS Methylprednisolone Sodium Succinate (Solu-Medrol) 40 mg IVPUSH Q8H EROS Sodium Chloride (Saline Flush) 10 ml FLUSH ASDIRECTED PRN PRN Reason: Keep Vein Open Assessment/Plan Comment:: Assessment * Right lower lobe pneumonia * Failed outpatient therapy with ciprofloxacin 200 mg twice daily * White count 12,000 * Chest x-ray: Increased central lung markings most likely representing a bronchitis with atelectasis versus pneumonia within the right lung base. Possible emphysematous changes * Reactive airway disease with hypoxemia * Patient on 1 L nasal cannula to keep oxygenation above 92% * No history of COPD or asthma * Chest x-ray shows possible emphysematous change * Insulin-dependent type 2 diabetes * Home insulin: Lantus 68 units daily, NovoLog 8 units before breakfast, 15 units at lunch, 15 units at dinner * Stage III chronic renal disease versus acute renal injury * GFR 49 * On enalapril 5 mg daily * Hypertension * Home med: Enalapril 5 mg daily * Thrombocytopenia -chronic * Platelet count 65,000 * Elevated proBNP with lower extremity edema * Possible CHF Plan * Admit to medical floor on telemetry * Rocephin 2 g every 24 hours, azithromycin 500 mg day 1 then 250 mg daily x4 * Solu-Medrol 40 mg IV x 1. Reevaluate in the morning if Solu-Medrol should be continued. Solu-Medrol is a higher risk medication for an insulin-dependent diabetic without clear benefit of his reactive airway disease. He is hypoxemic , therefore will be given 1 dose with anticipation of reevaluation. * Echocardiogram * Renally dose meds * FiO2 to keep SPO2 greater than 90% * No diuretics will be given tonight. Reevaluate fluid status in the morning. * Blood cultures, respiratory panel, Legionella and strep pneumoniae antigen * CBC, BMP, glycosylated hemoglobin, and TSH in the morning * Decrease long-acting insulin, Lantus, by 75%, 50 units daily. * Prandial short acting insulin 8 units with each meal * Sliding scale insulin * VTE prophylaxis with SCDs * CODE STATUS full code - Mortality Measure Prognosis:: Good
[2019-07-22] MEDS: cefTRIAXone 2 GM in Sodium Chloride 0.9% 100 ML IV SCH (20:46)
[2019-07-22] MEDS ORDERED: methylPREDNISolone Sodium Succinate 40 MG/1 ML SDV IVPUSH SCH (21:00)
[2019-07-22] MEDS: Insulin Lispro 100 Units/ML 3 ML Vial SUBCUT SCH (21:20)
[2019-07-22] MEDS: Albuterol/Ipratropium 3.0-0.5 MG/3 ML Neb Soln NEB SCH (22:13)
[2019-07-23] MEDS: Albuterol/Ipratropium 3.0-0.5 MG/3 ML Neb Soln NEB SCH ×4 (02:41→20:58)
[2019-07-23] MEDS: Levothyroxine 50 MCG Tab PO SCH (06:35)
[2019-07-23 07:17] LABS: HEMOGLOBIN A1C 7.9 % (4.50-6.20)
[2019-07-23] MEDS: Insulin Glarg,Human.Rec.Analog 100 Unit/ML SUBCUT SCH (08:24)
[2019-07-23] MEDS: Insulin Lispro 100 Units/ML 3 ML Vial SUBCUT SCH ×7 (08:26→21:46)
[2019-07-23] MEDS ORDERED: Enoxaparin 40 MG/0.4 ML Syringe SUBCUT SCH (09:00)
[2019-07-23] MEDS: Azithromycin 250 MG Tab PO SCH (21:07)
[2019-07-23] MEDS: cefTRIAXone 2 GM in Sodium Chloride 0.9% 100 ML IV SCH (21:07)
--- NOTE | 2019-07-23 22:15 | PCM.PN ---
- General Info Date of Service: 07/23/19 Subjective Update: Feeling OK Slept OK Tolerating diet Shortness of breath improved Cough improved - Patient Data Vitals - Most Recent: Last Vital Signs Temp 98.1 F 07/23/19 15:09 Pulse 83 07/23/19 15:09 Resp 20 07/23/19 16:00 BP 124/56 L 07/23/19 15:09 Pulse Ox 91 L 07/23/19 21:00 Weight - Most Recent: 101.831 kg I&O - Last 24 Hours: Intake & Output 07/23/19 07/23/19 07/23/19 06:59 14:59 22:59 Intake Total 1175 900 500 Output Total 400 250 Balance 775 900 250 Lab Results Last 24 Hours: Laboratory Results - last 24 hr 07/23/19 07/23/19 07/23/19 Range/Units 05:23 05:23 05:23 WBC 9.95 H (4.23-9.07) K/mm3 RBC 3.40 L (4.63-6.08) M/mm3 Hgb 10.2 L (13.7-17.5) gm/dl Hct 32.0 L (40.1-51.0) % MCV 94.1 H (79.0-92.2) fl MCH 30.0 (25.7-32.2) pg MCHC 31.9 L (32.2-35.5) g/dl RDW Std Deviation 48.8 H (35.1-43.9) fL Plt Count 44 L (163-337) K/mm3 MPV 12.2 (9.4-12.3) fl Neut % (Auto) 90.8 H (34.0-67.9) % Lymph % (Auto) 5.3 L (21.8-53.1) % [place] % (Auto) 2.0 L (5.3-12.2) % Eos % (Auto) 0.1 L (0.8-7.0) Baso % (Auto) 0.2 (0.1-1.2) % Neut # (Auto) 9.03 H (1.78-5.38) K/mm3 Lymph # (Auto) 0.53 L (1.32-3.57) K/mm3 [place] # (Auto) 0.20 L (0.30-0.82) K/mm3 Eos # (Auto) 0.01 L (0.04-0.54) K/mm3 Baso # (Auto) 0.02 (0.01-0.08) K/mm3 Manual Slide Review Abnormal smear Sodium 139 (136-145) mEq/L Potassium 5.0 (3.5-5.1) mEq/L Chloride 105 (98-107) mEq/L Carbon Dioxide 22 (21-32) mEq/L Anion Gap 17.0 H (5-15) BUN 32 H (7-18) mg/dL Creatinine 1.3 (0.7-1.3) mg/dL Est Cr Clr Drug Dosing 50.57 mL/min Estimated GFR (MDRD) 53 (>60) mL/min BUN/Creatinine Ratio 24.6 H (14-18) Glucose 314 H (83-115) mg/dL POC Glucose (83-110) mg/dL Hemoglobin A1c 7.90 H (4.50-6.20) % Calcium 8.3 L (8.5-10.1) mg/dL Procalcitonin (<0.10) ng/mL TSH 3rd Generation 1.394 (0.358-3.74) uIU/mL 07/23/19 07/23/19 07/23/19 Range/Units 05:23 06:32 11:20 WBC (4.23-9.07) K/mm3 RBC (4.63-6.08) M/mm3 Hgb (13.7-17.5) gm/dl Hct (40.1-51.0) % MCV (79.0-92.2) fl MCH (25.7-32.2) pg MCHC (32.2-35.5) g/dl RDW Std Deviation (35.1-43.9) fL Plt Count (163-337) K/mm3 MPV (9.4-12.3) fl Neut % (Auto) (34.0-67.9) % Lymph % (Auto) (21.8-53.1) % [place] % (Auto) (5.3-12.2) % Eos % (Auto) (0.8-7.0) Baso % (Auto) (0.1-1.2) % Neut # (Auto) (1.78-5.38) K/mm3 Lymph # (Auto) (1.32-3.57) K/mm3 [place] # (Auto) (0.30-0.82) K/mm3 Eos # (Auto) (0.04-0.54) K/mm3 Baso # (Auto) (0.01-0.08) K/mm3 Manual Slide Review Sodium (136-145) mEq/L Potassium (3.5-5.1) mEq/L Chloride (98-107) mEq/L Carbon Dioxide (21-32) mEq/L Anion Gap (5-15) BUN (7-18) mg/dL Creatinine (0.7-1.3) mg/dL Est Cr Clr Drug Dosing mL/min Estimated GFR (MDRD) (>60) mL/min BUN/Creatinine Ratio (14-18) Glucose (83-115) mg/dL POC Glucose 317 H 340 H (83-110) mg/dL Hemoglobin A1c (4.50-6.20) % Calcium (8.5-10.1) mg/dL Procalcitonin 0.27 H (<0.10) ng/mL TSH 3rd Generation (0.358-3.74) uIU/mL 07/23/19 07/23/19 Range/Units 17:27 21:03 WBC (4.23-9.07) K/mm3 RBC (4.63-6.08) M/mm3 Hgb (13.7-17.5) gm/dl Hct (40.1-51.0) % MCV (79.0-92.2) fl MCH (25.7-32.2) pg MCHC (32.2-35.5) g/dl RDW Std Deviation (35.1-43.9) fL Plt Count (163-337) K/mm3 MPV (9.4-12.3) fl Neut % (Auto) (34.0-67.9) % Lymph % (Auto) (21.8-53.1) % [place] % (Auto) (5.3-12.2) % Eos % (Auto) (0.8-7.0) Baso % (Auto) (0.1-1.2) % Neut # (Auto) (1.78-5.38) K/mm3 Lymph # (Auto) (1.32-3.57) K/mm3 [place] # (Auto) (0.30-0.82) K/mm3 Eos # (Auto) (0.04-0.54) K/mm3 Baso # (Auto) (0.01-0.08) K/mm3 Manual Slide Review Sodium (136-145) mEq/L Potassium (3.5-5.1) mEq/L Chloride (98-107) mEq/L Carbon Dioxide (21-32) mEq/L Anion Gap (5-15) BUN (7-18) mg/dL Creatinine (0.7-1.3) mg/dL Est Cr Clr Drug Dosing mL/min Estimated GFR (MDRD) (>60) mL/min BUN/Creatinine Ratio (14-18) Glucose (83-115) mg/dL POC Glucose 366 H 315 H (83-110) mg/dL Hemoglobin A1c (4.50-6.20) % Calcium (8.5-10.1) mg/dL Procalcitonin (<0.10) ng/mL TSH 3rd Generation (0.358-3.74) uIU/mL Joshua Results Last 24 Hours: Microbiology 07/23/19 00:20 Streptococcus pneumoniae Antigen (M - Final Urine 07/23/19 00:20 Legionella Urinary Antigen - Final Urine 07/23/19 14:30 Gram Stain - Final Sputum - Other 07/22/19 16:08 Aerobic Blood Culture - Preliminary Blood - Venous - Lab Draw NO GROWTH AFTER 1 DAY Anaerobic Blood Culture - Preliminary NO GROWTH AFTER 1 DAY 07/22/19 15:59 Aerobic Blood Culture - Preliminary Blood - Venous NO GROWTH AFTER 1 DAY Anaerobic Blood Culture - Preliminary NO GROWTH AFTER 1 DAY 07/22/19 20:00 Influenza Type A Antigen Screen - Final Nasal, Unspecified NEGATIVE INFLUENZA A VIRUS AG REFERENCE RANGE: NEGATIVE Influenza Type B Antigen Screen - Final NEGATIVE INFLUENZA B VIRUS AG REFERENCE RANGE: NEGATIVE Med Orders - Current: Current Medications Acetaminophen (Tylenol) 650 mg PO Q4H PRN PRN Reason: Pain (Mild 1-3)/fever Albuterol (Proventil Neb Soln) 2.5 mg NEB Q2H PRN PRN Reason: Wheezing Albuterol/Ipratropium (Duoneb 3.0-0.5 Mg/3 Ml) 3 ml NEB Q6HRRT EROS Last Admin: 07/23/19 20:58 Dose: 3 ml Azithromycin (Zithromax) 500 mg PO BEDTIME [facility] Last Admin: 07/23/19 21:07 Dose: 500 mg Guaifenesin (Mucinex) 600 mg PO BID PRN PRN Reason: Congestion Last Admin: 07/22/19 20:46 Dose: 600 mg Ceftriaxone Sodium 2 gm/ (Sodium Chloride) 100 mls @ 200 mls/hr IV Q24H [facility] Last Admin: 07/23/19 21:07 Dose: 200 mls/hr Insulin Glargine (Lantus) 50 unit SUBCUT DAILY [facility] Last Admin: 07/23/19 08:24 Dose: 50 units Insulin Human Lispro (Humalog) 0 unit SUBCUT QIDACANDBED [facility]; Protocol Last Admin: 07/23/19 21:46 Dose: 4 units Insulin Human Lispro (Humalog) 8 unit SUBCUT TIDAC [facility] Last Admin: 07/23/19 18:07 Dose: 8 units Levothyroxine Sodium (Synthroid) 50 mcg PO DAILY@0600 [facility] Last Admin: 07/23/19 06:35 Dose: 50 mcg Sodium Chloride (Saline Flush) 10 ml FLUSH ASDIRECTED PRN PRN Reason: Keep Vein Open Discontinued Medications Albuterol/Ipratropium (Duoneb 3.0-0.5 Mg/3 Ml) 3 ml NEB ONETIME ONE Stop: 07/22/19 15:33 Last Admin: 07/22/19 15:49 Dose: 3 ml Enoxaparin Sodium (Lovenox) 40 mg SUBCUT DAILY [facility] Sodium Chloride (Normal Saline) 1,000 mls @ 999 mls/hr IV ONETIME ONE Stop: 07/22/19 18:32 Last Admin: 07/22/19 18:11 Dose: 250 mls/hr Azithromycin 500 mg/ Sodium (Chloride) 250 mls @ 250 mls/hr IV ONETIME ONE Stop: 07/22/19 21:02 Last Admin: 07/22/19 20:47 Dose: 250 mls/hr Methylprednisolone Sodium Succinate (Solu-Medrol) 40 mg IVPUSH Q8H [facility] Last Admin: 07/22/19 20:46 Dose: 40 mg - Exam Physical Findings Comments:: Quality Assessment: Supplemental Oxygen General: Alert, Oriented, 4 HEENT: Conjunctiva Clear, Hearing Intact, Mucosa Moist & [place] Neck: Supple, Trachea Midline, 2 Lungs: Normal Respiratory Effort, Decreased Breath Sounds, Rhonchi (Right lower lobe), Wheezing (Throughout both lung moore) Cardiovascular: Regular Rate, Regular Rhythm GI/Abdominal Exam: Normal Bowel Sounds, Soft, Non-Tender, No Distention Extremities: Normal Inspection, Normal Capillary Refill, Pedal Edema (1+ right 2 + left) Neurological: Cranial Nerves Intact Neuro Extensive - Mental Status: Alert, Oriented x3, Normal Mood/Affect, Normal Cognition Psychiatric: Alert, Normal Affect, Normal Mood Sepsis Event Note - Evaluation Sepsis Screening Result: No Definite Risk - Focused Exam Vital Signs: Vital Signs Temp Pulse Resp BP Pulse Ox Pulse Ox 07/23/19 21:00 91 L 07/23/19 16:00 20 07/23/19 15:09 98.1 F 83 124/56 L 91 L 07/23/19 14:37 91 L 07/23/19 11:23 98.4 F 75 16 145/73 H 95 Date Exam was Performed: 08/22/19 Time Exam was Performed: 15:55 - Problem List Review Problem List Initiated/Reviewed/Updated: Yes - My Orders Last 24 Hours: My Active Orders 07/23/19 11:36 Admission Status [Patient Status] [ADT] Routine 07/23/19 14:30 CULTURE SPUTUM + SMEAR [RM] Routine 07/23/19 21:00 Azithromycin [Zithromax] 500 mg PO BEDTIME - Plan Plan:: Assessment * Right lower lobe pneumonia * Failed outpatient therapy with ciprofloxacin 200 mg twice daily * White count 12,000 * Chest x-ray: Increased central lung markings most likely representing a bronchitis with atelectasis versus pneumonia within the right lung base. Possible emphysematous changes * Azithromycin to PO * Reactive airway disease with hypoxemia * Patient on 1 L nasal cannula to keep oxygenation above 92% * No history of COPD or asthma * Chest x-ray shows possible emphysematous change * Insulin-dependent type 2 diabetes * Home insulin: Lantus 68 units daily, NovoLog 8 units before breakfast, 15 units at lunch, 15 units at dinner * Stage III chronic renal disease versus acute renal injury * GFR 49 * On enalapril 5 mg daily * Hypertension * Home med: Enalapril 5 mg daily * Thrombocytopenia -chronic * Platelet count 65,000 * Elevated proBNP with lower extremity edema * Possible CHF Plan * Rocephin 2 g every 24 hours, azithromycin 500 mg day * Solu-Medrol 40 mg IV x 1. Reevaluate in the morning if Solu-Medrol should be continued. Solu-Medrol is a higher risk medication for an insulin-dependent diabetic without clear benefit of his reactive airway disease. He is hypoxemic , therefore will be given 1 dose with anticipation of reevaluation. * Echocardiogram * Renally dose meds * FiO2 to keep SPO2 greater than 90% * No diuretics will be given tonight. Reevaluate fluid status in the morning. * Blood cultures, respiratory panel, Legionella and strep pneumoniae antigen * Decrease long-acting insulin, Lantus, by 75%, 50 units daily. * Prandial short acting insulin 8 units with each meal * Sliding scale insulin * VTE prophylaxis with SCDs * CODE STATUS full code
[2019-07-24] MEDS: Albuterol/Ipratropium 3.0-0.5 MG/3 ML Neb Soln NEB SCH ×4 (02:42→20:35)
[2019-07-24 04:48] LABS: BORDETELLA PARAPERT IS1001 Not Detected (Not Detected)
[2019-07-24] MEDS: Levothyroxine 50 MCG Tab PO SCH (05:23)
[2019-07-24] MEDS: Insulin Glarg,Human.Rec.Analog 100 Unit/ML SUBCUT SCH (08:43)
[2019-07-24] MEDS: Insulin Lispro 100 Units/ML 3 ML Vial SUBCUT SCH ×6 (08:45→18:01)
[2019-07-24] MEDS: cefTRIAXone 2 GM in Sodium Chloride 0.9% 100 ML IV SCH (20:13)
[2019-07-24] MEDS: Azithromycin 250 MG Tab PO SCH (20:14)
--- NOTE | 2019-07-24 21:40 | PCM.PN ---
- General Info Date of Service: 07/24/19 Subjective Update: Feeling OK Slept OK Tolerating diet Shortness of breath improved Cough improved - Patient Data Vitals - Most Recent: Last Vital Signs Temp 98.4 F 07/24/19 16:04 Pulse 81 07/24/19 16:04 Resp 24 H 07/24/19 16:04 BP 143/65 H 07/24/19 16:04 Pulse Ox 92 L 07/24/19 20:40 Weight - Most Recent: 103.011 kg I&O - Last 24 Hours: Intake & Output 07/24/19 07/24/19 07/24/19 06:59 14:59 22:59 Intake Total 500 920 888 Output Total 450 750 Balance 50 920 138 Lab Results Last 24 Hours: Laboratory Results - last 24 hr 07/22/19 07/23/19 07/24/19 Range/Units 20:00 05:23 05:28 POC Glucose 237 H (83-110) mg/dL Procalcitonin 0.27 H (<0.10) ng/mL Adenovirus (PCR) Not detected (Not Detected) B. pertussis DNA (PCR) Not detected (Not Detected) B.parapertussis DNA PCR Not detected (Not Detected) C. pneumoniae DNA (PCR) Not detected (Not Detected) Coronavirus (PCR) Not detected (Not Detected) Human Metapneumovir PCR Not detected (Not Detected) Influenza A (RT-PCR) Not detected (Not Detected) Influenza B (RT-PCR) Not detected (Not Detected) M. pneumoniae (PCR) Detected H (Not Detected) Parainfluen 1,2,3,4 PCR Not detected (Not Detected) RSV (PCR) Not detected (Not Detected) Entero/Rhino (PCR) Not detected (Not Detected) 07/24/19 07/24/19 07/24/19 Range/Units 11:13 17:34 20:52 POC Glucose 397 H 221 H 204 H (83-110) mg/dL Procalcitonin (<0.10) ng/mL Adenovirus (PCR) (Not Detected) B. pertussis DNA (PCR) (Not Detected) B.parapertussis DNA PCR (Not Detected) C. pneumoniae DNA (PCR) (Not Detected) Coronavirus (PCR) (Not Detected) Human Metapneumovir PCR (Not Detected) Influenza A (RT-PCR) (Not Detected) Influenza B (RT-PCR) (Not Detected) M. pneumoniae (PCR) (Not Detected) Parainfluen 1,2,3,4 PCR (Not Detected) RSV (PCR) (Not Detected) Entero/Rhino (PCR) (Not Detected) Joshua Results Last 24 Hours: Microbiology 07/22/19 16:08 Aerobic Blood Culture - Preliminary Blood - Venous - Lab Draw NO GROWTH AFTER 2 DAYS Anaerobic Blood Culture - Preliminary NO GROWTH AFTER 2 DAYS 07/22/19 15:59 Aerobic Blood Culture - Preliminary Blood - Venous NO GROWTH AFTER 2 DAYS Anaerobic Blood Culture - Preliminary NO GROWTH AFTER 2 DAYS 07/23/19 14:30 Gram Stain - Final Sputum - Other Sputum Culture - Preliminary 07/23/19 00:20 Streptococcus pneumoniae Antigen (M - Final Urine 07/23/19 00:20 Legionella Urinary Antigen - Final Urine Med Orders - Current: Current Medications Acetaminophen (Tylenol) 650 mg PO Q4H PRN PRN Reason: Pain (Mild 1-3)/fever Albuterol (Proventil Neb Soln) 2.5 mg NEB Q2H PRN PRN Reason: Wheezing Albuterol/Ipratropium (Duoneb 3.0-0.5 Mg/3 Ml) 3 ml NEB Q6HRRT [facility] Last Admin: 07/24/19 20:35 Dose: 3 ml Azithromycin (Zithromax) 500 mg PO BEDTIME [facility] Last Admin: 07/24/19 20:14 Dose: 500 mg Guaifenesin (Mucinex) 600 mg PO BID PRN PRN Reason: Congestion Last Admin: 07/22/19 20:46 Dose: 600 mg Guaifenesin/Phenylephrine HCl (Robitussin Dm) 10 ml PO Q4H PRN PRN Reason: Cough Ceftriaxone Sodium 2 gm/ (Sodium Chloride) 100 mls @ 200 mls/hr IV Q24H [facility] Last Admin: 07/24/19 20:13 Dose: 200 mls/hr Insulin Glargine (Lantus) 50 unit SUBCUT DAILY [facility] Last Admin: 07/24/19 08:43 Dose: 50 units Insulin Human Lispro (Humalog) 0 unit SUBCUT QIDACANDBED [facility]; Protocol Last Admin: 07/24/19 18:00 Dose: 2 units Insulin Human Lispro (Humalog) 8 unit SUBCUT TIDAC [facility] Last Admin: 07/24/19 18:01 Dose: 8 units Levothyroxine Sodium (Synthroid) 50 mcg PO DAILY@0600 [facility] Last Admin: 07/24/19 05:23 Dose: 50 mcg Sodium Chloride (Saline Flush) 10 ml FLUSH ASDIRECTED PRN PRN Reason: Keep Vein Open Discontinued Medications Albuterol/Ipratropium (Duoneb 3.0-0.5 Mg/3 Ml) 3 ml NEB ONETIME ONE Stop: 07/22/19 15:33 Last Admin: 07/22/19 15:49 Dose: 3 ml Enoxaparin Sodium (Lovenox) 40 mg SUBCUT DAILY [facility] Sodium Chloride (Normal Saline) 1,000 mls @ 999 mls/hr IV ONETIME ONE Stop: 07/22/19 18:32 Last Admin: 07/22/19 18:11 Dose: 250 mls/hr Azithromycin 500 mg/ Sodium (Chloride) 250 mls @ 250 mls/hr IV ONETIME ONE Stop: 07/22/19 21:02 Last Admin: 07/22/19 20:47 Dose: 250 mls/hr Methylprednisolone Sodium Succinate (Solu-Medrol) 40 mg IVPUSH Q8H [facility] Last Admin: 07/22/19 20:46 Dose: 40 mg - Exam Physical Findings Comments:: Quality Assessment: Supplemental Oxygen General: Alert, Oriented, 4 HEENT: Conjunctiva Clear, Hearing Intact, Mucosa Moist & [place] Neck: Supple, Trachea Midline, 2 Lungs: Normal Respiratory Effort, Decreased Breath Sounds, Rhonchi (Right lower lobe), Wheezing (Throughout both lung moore) Cardiovascular: Regular Rate, Regular Rhythm GI/Abdominal Exam: Normal Bowel Sounds, Soft, Non-Tender, No Distention Extremities: Normal Inspection, Normal Capillary Refill, Pedal Edema (1+ right 2 + left) Neurological: Cranial Nerves Intact Neuro Extensive - Mental Status: Alert, Oriented x3, Normal Mood/Affect, Normal Cognition Psychiatric: Alert, Normal Affect, Normal Mood Sepsis Event Note - Evaluation Sepsis Screening Result: No Definite Risk - Focused Exam Vital Signs: Vital Signs Temp Pulse Resp BP Pulse Ox Pulse Ox 07/24/19 20:40 92 L 07/24/19 16:04 98.4 F 81 24 H 143/65 H 100 07/24/19 15:52 91 L 07/24/19 12:07 98.1 F 87 24 H 147/67 H 93 L Date Exam was Performed: 08/22/19 Time Exam was Performed: 15:56 - Problem List Review Problem List Initiated/Reviewed/Updated: Yes - My Orders Last 24 Hours: My Active Orders 07/23/19 21:00 Azithromycin [Zithromax] 500 mg PO BEDTIME 07/25/19 06:00 PROCALCITONIN [REF] DAILY - Plan Plan:: Assessment * Right lower lobe pneumonia * Failed outpatient therapy with ciprofloxacin 200 mg twice daily * White count 12,000 * Chest x-ray: Increased central lung markings most likely representing a bronchitis with atelectasis versus pneumonia within the right lung base. Possible emphysematous changes * Reactive airway disease with hypoxemia * Patient on 1 L nasal cannula to keep oxygenation above 92% * No history of COPD or asthma * Chest x-ray shows possible emphysematous change * Insulin-dependent type 2 diabetes * Home insulin: Lantus 68 units daily, NovoLog 8 units before breakfast, 15 units at lunch, 15 units at dinner * Stage III chronic renal disease versus acute renal injury * GFR 49 * On enalapril 5 mg daily * Hypertension * Home med: Enalapril 5 mg daily * Thrombocytopenia -chronic * Platelet count 65,000 * Elevated proBNP with lower extremity edema * Possible CHF Plan * Admit to medical floor on telemetry * Rocephin 2 g every 24 hours, azithromycin 500 mg day 1 then 250 mg daily x4 * Solu-Medrol 40 mg IV x 1. Reevaluate in the morning if Solu-Medrol should be continued. Solu-Medrol is a higher risk medication for an insulin-dependent diabetic without clear benefit of his reactive airway disease. He is hypoxemic , therefore will be given 1 dose with anticipation of reevaluation. * Echocardiogram * Renally dose meds * FiO2 to keep SPO2 greater than 90% * No diuretics will be given tonight. Reevaluate fluid status in the morning. * Blood cultures, respiratory panel, Legionella and strep pneumoniae antigen * CBC, BMP, glycosylated hemoglobin, and TSH in the morning * Decrease long-acting insulin, Lantus, by 75%, 50 units daily. * Prandial short acting insulin 8 units with each meal * Sliding scale insulin * VTE prophylaxis with SCDs * CODE STATUS full code
[2019-07-25] MEDS: guaiFENesin/Dextromethorphan 100-10 MG/5 ML Soln 5 ML Cup PO PRN ×2 (00:11→05:52)
[2019-07-25] MEDS: Albuterol/Ipratropium 3.0-0.5 MG/3 ML Neb Soln NEB SCH ×3 (02:58→19:20)
[2019-07-25] MEDS: Levothyroxine 50 MCG Tab PO SCH (05:51)
[2019-07-25] MEDS: Insulin Lispro 100 Units/ML 3 ML Vial SUBCUT SCH ×7 (06:31→17:56)
[2019-07-25] MEDS: Insulin Glarg,Human.Rec.Analog 100 Unit/ML SUBCUT SCH (08:05)
[2019-07-25] MEDS: guaiFENesin/Dextromethorphan 100-10 MG/5 ML Soln 5 ML Cup PO SCH ×2 (13:08→20:51)
[2019-07-25 13:25] VITALS: PULSE 87
--- NOTE | 2019-07-25 14:37 | PCM.DCSUM1 ---
Discharge Summary - Hospital Course HPI Initial Comments: 79-year-old male with history of type 2 diabetes, hypothyroidism, non-Hodgkin's lymphoma and prostate cancer that are in remission, presents to the emergency room with a two-week history of cough productive of white sputum, fatigue, and weakness. Patient was diagnosed with right lower lobe pneumonia on July 15 at the clinic and was prescribed ciprofloxacin 250 mg twice daily. Patient is still on the antibiotic and has not been improving. His son noted that he was getting weaker and encouraged him to come to the emergency room. Patient denies any fever or chills. He states that he sleeps sitting up in a chair until about 2:00 in the morning and then does lay down to go to bed. When he lays down he does have some coughing, but does not feel short of breath. Also does not cause him to cough all the time. He denies any PND. He has minimal dyspnea on exertion and is able to go up 1 flight of stairs, from his basement, without shortness of breath. He complains of chronic peripheral edema that is worse over the last few days. - Discharge Data Discharge Date: 07/25/19 Discharge Disposition: Home, Self-Care 01 Condition: Good - Referral to Home Health Primary Care Physician: Westley Alberto MD - Discharge Diagnosis/Problem(s) (1) CAP (community acquired pneumonia) SNOMED Code(s): 789073587 ICD Code: J18.9 - PNEUMONIA, UNSPECIFIED ORGANISM Status: Acute Priority : High Qualifiers: Laterality: right Lung location: middle lobe of lung Qualified Code(s): J18.9 - Pneumonia, unspecified organism (2) Diabetes mellitus SNOMED Code(s): 40798089 ICD Code: E11.9 - TYPE 2 DIABETES MELLITUS WITHOUT COMPLICATIONS Status: Chronic Priority: Low Qualifiers: Diabetes mellitus type: type 2 Diabetes mellitus [employer] insulin use: unspecified [employer] insulin use status Diabetes mellitus complication status : with unspecified complications (3) Hyperlipidemia SNOMED Code(s): 45835334 ICD Code: E78.5 - HYPERLIPIDEMIA, UNSPECIFIED Status: Chronic Priority: Low Qualifiers: Hyperlipidemia type: unspecified Qualified Code(s): E78.5 - Hyperlipidemia , unspecified (4) Hypertension SNOMED Code(s): 54708832 ICD Code: I10 - ESSENTIAL (PRIMARY) HYPERTENSION Status: Chronic Priority : Low Qualifiers: Hypertension type: unspecified Qualified Code(s): I10 - Essential (primary ) hypertension (5) Hypothyroidism SNOMED Code(s): 05044286 ICD Code: E03.9 - HYPOTHYROIDISM, UNSPECIFIED Status: Chronic Priority: Low Qualifiers: Hypothyroidism type: unspecified Qualified Code(s): E03.9 - Hypothyroidism , unspecified (6) Acute hypoxemic respiratory failure SNOMED Code(s): 609373080 ICD Code: J96.01 - ACUTE RESPIRATORY FAILURE WITH HYPOXIA Status: Acute - Patient Summary/Data Hospital Course: Admitted on O2 supplementation --> weaned off Epistaxis--> D/c lovenox Mycoplasma +--> azithromycin discharged to f/u with pcp - Discharge Plan *PRESCRIPTION DRUG MONITORING PROGRAM REVIEWED*: No *COPY OF PRESCRIPTION DRUG MONITORING REPORT IN PATIENT JAVI: No Prescriptions/Med Rec: Azithromycin [Zithromax] 500 mg PO BEDTIME #4 tablet Dextromethorphan/guaiFENesin [Robitussin DM] 10 ml PO Q8H #12 cup Home Medications: Home Meds Ascorbic Acid [Vitamin C with Kathrine Hips] 1,000 mg PO DAILY 01/16/19 [History] Cholecalciferol (Vitamin D3) [Vitamin D3] 5,000 intnl unit PO DAILY 01/16/19 [ History] Cyanocobalamin/Folic Acid [Vitamin N13-Ormhz Acid] 1,000 mcg PO DAILY 01/16/19 [ History] Enalapril [Vasotec] 5 mg PO DAILY 01/16/19 [History] Levothyroxine [Synthroid] 50 mcg PO DAILY 01/16/19 [History] Multivit-Min/FA/Lycopen/Lutein [Centrum Silver Tablet] 1 tab PO DAILY 01/16/19 [ History] Methylcellulose [Fiber] 1 cap PO DAILY 07/22/19 [History] Insulin Aspart [NovoLOG] 0 units SQ TID 07/23/19 [History] Insulin Glarg,Human.Rec.Analog [Lantus] 68 units SQ DAILY 07/23/19 [History] Azithromycin [Zithromax] 500 mg PO BEDTIME #4 tablet 07/25/19 [Rx] Dextromethorphan/guaiFENesin [Robitussin DM] 10 ml PO Q8H #12 cup 07/25/19 [Rx] Oxygen Therapy Mode: Room Air Patient Handouts: Type 2 Diabetes Mellitus, Diagnosis, Adult, How to Use an Incentive Spirometer, Sepsis, Diagnosis, Adult, Heart Failure, Community- Acquired Pneumonia, Adult, [id number] Referrals: Westley Alberto MD [Primary Care Provider] - Vilma Reyna MD [Ordering Only Provider] - 08/04/19 1:15 pm (PCP Dr. Alberto is out of town and unable to see you in clinic soon enough. We have scheduled a follow-up appointment with Vilma Reyna at [facility] so that you can be seen by August 03.) - Discharge Summary/Plan Comment DC Time >30 min.: Yes - General Info Date of Service: 07/25/19 Subjective Update: Feeling OK Slept OK Tolerating diet Shortness of breath improved Cough improved significantly - Patient Data Vitals - Most Recent: Last Vital Signs Temp 97.7 F 07/25/19 12:21 Pulse 87 07/25/19 12:21 Resp 20 07/25/19 12:21 BP 154/79 H 07/25/19 12:21 Pulse Ox 95 07/25/19 12:21 Weight - Most Recent: 103.6 kg - Exam General: Reports: Alert, Oriented, Cooperative, No Acute Distress HEENT: Reports: Pupils Equal, Pupils Reactive, EOMI, Mucous Membr. Moist/[place] Neck: Reports: Supple, Trachea Midline, No JVD, No Thyromegaly. Denies: Lymphadenopathy Lungs: Reports: Normal Respiratory Effort, Crackles (R base, interval improvement) Cardiovascular: Reports: Regular Rate, Regular Rhythm. Denies: Murmurs, Gallops , Rubs GI/Abdominal Exam: Normal Bowel Sounds, Soft, Non-Tender, No Distention Back Exam: Reports: Normal Inspection. Denies: CVA Tenderness (L), CVA Tenderness (R) Extremities: Normal Inspection, Pedal Edema, Slow Capillary Refill. No: Increased Warmth Neurological: Reports: No New Focal Deficit
[2019-07-25 15:39] VITALS: BP 157/76
[2019-07-25] MEDS: Azithromycin 250 MG Tab PO SCH (20:06)
== END 2019-07-25 21:12 | disposition home or self-care (01) | DRG 193 ==
LOC: JD.ED 14:50 → JD.MS 18:21
PROVIDERS: ADMIT Family Medicine; ATTEND Internal Medicine
DX: J18.9 Pneumonia, unspecified organism (principal); R79.89 Other specified abnormal findings of blood chemistry; J96.01 Acute respiratory failure with hypoxia; E03.9 Hypothyroidism, unspecified; I10 Essential (primary) hypertension; Z87.01 Personal history of pneumonia (recurrent); K57.90 Diverticulosis of intestine, part unspecified, without perforation or abscess without bleeding; Z96.643 Presence of artificial hip joint, bilateral; E11.9 Type 2 diabetes mellitus without complications; H54.7 Unspecified visual loss; C85.90 Non-Hodgkin lymphoma, unspecified, unspecified site; Z92.3 Personal history of irradiation; Z96.7 Presence of other bone and tendon implants; J45.909 Unspecified asthma, uncomplicated; N18.3 Chronic kidney disease, stage 3 (moderate); Z88.2 Allergy status to sulfonamides; I12.9 Hypertensive chronic kidney disease with stage 1 through stage 4 chronic kidney disease, or unspecified chronic kidney disease; Z79.890 Hormone replacement therapy; E11.22 Type 2 diabetes mellitus with diabetic chronic kidney disease; D69.6 Thrombocytopenia, unspecified; E78.5 Hyperlipidemia, unspecified; E78.00 Pure hypercholesterolemia, unspecified; Z88.8 Allergy status to other drugs, medicaments and biological substances; Z88.1 Allergy status to other antibiotic agents; Z79.4 Long term (current) use of insulin; Z79.51 Long term (current) use of inhaled steroids; Z79.899 Other long term (current) drug therapy; Z79.2 Long term (current) use of antibiotics; Z85.46 Personal history of malignant neoplasm of prostate; Z98.890 Other specified postprocedural states; Z99.81 Dependence on supplemental oxygen
CPT/HCPCS: 36415; 71046; 80053; 83605; 83880; 84484; 85007; 85027; 87040 ×2; 93005; 94640; 99284; J7030; 80048; 82962; 83036; 83735; 84100; 84145; 84443; 85025; 87070; 87205; 87486; 87581; 87632; 87798; 87804; 87899; 93010; 93306; 94668; 94760; 94761; 99222; 99232; 99239; A9270-GY; J0456; J0696; J1815-GY; J2920; J7050; J7620-GY

== ENCOUNTER 2022-01-21 09:16 | Emergency (ER) | payer BC | END 2022-01-21 11:02 | disposition left against medical advice (07) | LOC: JD.ED 09:16 | DX: Z53.21 Procedure and treatment not carried out due to patient leaving prior to being seen by health care provider (principal) ==

== ENCOUNTER 2022-10-10 10:22 | Emergency (ER) | payer MEDICARE, BC ==
[2022-10-10 11:53] LABS: EOSINOPHILS ABSOLUTE AUTO 0.02 K/mm3 (0.04-0.54); EOSINOPHILS PERCENT AUTO 0.4 (0.8-7.0); HEMATOCRIT 33.2 % (40.1-51.0); HEMOGLOBIN 10.5 gm/dl (13.7-17.5); IMMATURE GRAN ABSOLUTE AUTO 0.02 K/mm3 (0.00-0.10); IMMATURE GRAN PERCENT AUTO 0.4 % (<=1.0); LYMPHOCYTES ABSOLUTE AUTO 0.35 K/mm3 (1.32-3.57); LYMPHOCYTES PERCENT AUTO 7.8 % (21.8-53.1); MEAN CORPUSCULAR HEMOGLOBIN 29.3 pg (25.7-32.2); MEAN CORPUSCULAR HGB CONC 31.6 g/dl (32.2-35.5); MEAN CORPUSCULAR VOLUME 92.7 fl (79.0-92.2); MEAN PLATELET VOLUME 12.8 fl (9.4-12.3); MONOCYTES ABSOLUTE AUTO 0.26 K/mm3 (0.30-0.82); MONOCYTES PERCENT AUTO 5.8 % (5.3-12.2); NEUTROPHILS ABSOLUTE AUTO 3.84 K/mm3 (1.78-5.38); NEUTROPHILS PERCENT AUTO 85.6 % (34.0-67.9); PLATELET COUNT,PLT 82 K/mm3 (163-337); RED BLOOD CELL COUNT 3.58 M/mm3 (4.63-6.08); WHITE BLOOD CELL COUNT,WBC 4.49 K/mm3 (4.23-9.07)
[2022-10-10 12:18] LABS: A/G RATIO 1.2 (1-2); ALBUMIN 3.3 g/dl (3.4-5.0); ALKALINE PHOSPHATASE 78 U/L (46-116); ANION GAP 13.3 (5-15); ASPARTATE AMNIOTRANSFERASE,AST 22 U/L (15-37); BILIRUBIN TOTAL 0.5 mg/dL (0.2-1.0); BLOOD UREA NITROGEN,BUN 25 mg/dL (7-18); BUN/CREATININE RATIO 17.9 (14-18); CALCIUM 8.7 mg/dL (8.5-10.1); CARBON DIOXIDE,CO2 24 mEq/L (21-32); CHLORIDE,CL 106 mEq/L (98-107); CREATININE 1.4 mg/dL (0.7-1.3); ESTIMATED GFR 50 mL/min (>60); GLUCOSE RANDOM 193 mg/dL (70-99); POTASSIUM,K 4.3 mEq/L (3.5-5.1); SODIUM,NA 139 mEq/L (136-145)
[2022-10-10 12:43] LABS: SLIDE REVIEW ABNORMAL SMEAR
[2022-10-10 12:49] LABS: ALANINE AMINOTRANSFERASE,ALT 17 U/L (16-63)
[2022-10-10 16:46] VITALS: BP 114/72; PULSE 84
== END 2022-10-10 16:00 | disposition home or self-care (01) ==
LOC: JD.ED 10:22
DX: I49.3 Ventricular premature depolarization (principal)
CPT/HCPCS: 36415; 71045; 71045-26; 80053; 84484; 85025; 93005; 93010; 99283; 99285

== ENCOUNTER 2023-06-25 19:27 | Emergency (ER) | payer MEDICARE, BC ==
[2023-06-25 19:48] VITALS: BP 190/61; PULSE 73
[2023-06-25] MEDS ORDERED: Iopamidol 612 MG/ML 100 ML Bottle IVPUSH ONE ×2 (20:41→22:03)
[2023-06-25] MEDS ORDERED: Sodium Chloride 0.9% 10 ML Syringe FLUSH ONE (20:41)
[2023-06-25 20:43] LABS: BASOPHILS PERCENT AUTO 0.2 % (0.0-1.0); EOSINOPHILS PERCENT AUTO 0.7 % (0.0-6.0); HEMATOCRIT 29.3 % (42.0-52.0); HEMOGLOBIN 9.3 gm/dl (14.0-18.0); IMMATURE GRAN ABSOLUTE AUTO 0.04 K/mm3 (0.00-0.05); IMMATURE GRAN PERCENT AUTO 0.9 % (0.0-0.4); LYMPHOCYTES ABSOLUTE AUTO 0.6 K/mm3 (1.0-4.8); LYMPHOCYTES PERCENT AUTO 13.9 % (24.0-44.0); MEAN CORPUSCULAR HEMOGLOBIN 30.5 pg (28.0-32.0); MEAN CORPUSCULAR HGB CONC 31.7 g/dl (32.0-36.0); MEAN CORPUSCULAR VOLUME 96.1 fl (83.0-99.0); MEAN PLATELET VOLUME 12.8 fl (9.4-12.4); MONOCYTES ABSOLUTE AUTO 0.4 K/mm3 (0.0-0.8); MONOCYTES PERCENT AUTO 8.4 % (0.0-8.0); NEUTROPHILS ABSOLUTE AUTO 3.4 K/mm3 (1.8-7.7); NEUTROPHILS PERCENT AUTO 75.9 % (41.0-71.0); PLATELET COUNT,PLT 63 K/mm3 (150-400); RED BLOOD CELL COUNT 3.05 M/mm3 (4.52-5.90); WHITE BLOOD CELL COUNT,WBC 4.53 K/mm3 (3.9-11.3)
[2023-06-25 21:11] LABS: INR 0.93
[2023-06-25 21:19] LABS: A/G RATIO 0.8 (1-2); ALBUMIN 2.9 g/dl (3.4-5.0); ANION GAP 14.6 (5-15); BILIRUBIN TOTAL 0.6 mg/dL (0.2-1.0); BUN/CREATININE RATIO 16.9 (14-18); C-REACTIVE PROTEIN 2.9 mg/dL (<1.0); CALCIUM 8.5 mg/dL (8.5-10.1); CREATININE 1.3 mg/dL (0.7-1.3); EST CRCL DRUG DOSING (CG) 47.26 mL/min; POTASSIUM,K 4.6 mEq/L (3.5-5.1); PROTEIN TOTAL,TP 6.4 g/dl (6.4-8.2)
[2023-06-25 21:25] LABS: APPEARANCE,URINE CLOUDY (Clear); BILIRUBIN,URINE NEGATIVE (Negative); COLOR,URINE DARK YELLOW (Yellow); GLUCOSE,URINE NEGATIVE (Negative); KETONES,URINE NEGATIVE (Negative); LEUKOCYTE ESTERASE,URINE 1+ (Negative); NITRITE,URINE POSITIVE (Negative); OCCULT BLOOD,URINE 3+ (Negative); PROTEIN,URINE 3+ (Negative); UROBILINOGEN,URINE 0.2 (0.2-1.0)
[2023-06-25] MEDS ORDERED: HYDROmorphone 0.5 MG/0.5 ML Syringe IVPUSH ONE (21:42)
[2023-06-25 22:09] LABS: BACTERIA,URINE MANY /hpf (FEW); MUCUS,URINE FEW /hpf (FEW); RBC,URINE >100 /hpf (0-5); SQUAMOUS EPITHELIAL CELLS,UR 0-5 /hpf (0-5)
[2023-06-25] MEDS ORDERED: cefTRIAXone 1 GM in Sodium Chloride 0.9% 100 ML IV ONE (22:28)
== END 2023-06-26 00:25 | disposition home or self-care (01) ==
LOC: JD.ED 19:27
DX: N39.0 Urinary tract infection, site not specified (principal); I10 Essential (primary) hypertension; E11.9 Type 2 diabetes mellitus without complications; E03.9 Hypothyroidism, unspecified; Z88.2 Allergy status to sulfonamides; Z88.5 Allergy status to narcotic agent; Z88.1 Allergy status to other antibiotic agents; Z88.8 Allergy status to other drugs, medicaments and biological substances; Z79.2 Long term (current) use of antibiotics; Z79.82 Long term (current) use of aspirin; Z79.4 Long term (current) use of insulin; Z79.899 Other long term (current) drug therapy
CPT/HCPCS: 36415; 74177; 74177-26; 80053; 81001; 83735; 83880; 85025; 85610; 86140; 87086; 87088; 87186; 96365; 96375; 99284; 99285-25; J0696; J1170; J3490; Q9967

== ENCOUNTER 2023-09-10 08:18 | Emergency (ER) | payer MEDICARE, BC ==
[2023-09-10 08:26] VITALS: PULSE 85
[2023-09-10 09:27] LABS: BASOPHILS PERCENT AUTO 0.1 % (0.0-1.0); HEMATOCRIT 31.1 % (42.0-52.0); HEMOGLOBIN 10.2 gm/dl (14.0-18.0); IMMATURE GRAN ABSOLUTE AUTO 0.05 K/mm3 (0.00-0.05); IMMATURE GRAN PERCENT AUTO 0.5 % (0.0-0.4); LYMPHOCYTES ABSOLUTE AUTO 0.5 K/mm3 (1.0-4.8); LYMPHOCYTES PERCENT AUTO 4.9 % (24.0-44.0); MEAN CORPUSCULAR HEMOGLOBIN 31.6 pg (28.0-32.0); MEAN CORPUSCULAR HGB CONC 32.8 g/dl (32.0-36.0); MEAN CORPUSCULAR VOLUME 96.3 fl (83.0-99.0); MEAN PLATELET VOLUME 12.8 fl (9.4-12.4); MONOCYTES ABSOLUTE AUTO 0.4 K/mm3 (0.0-0.8); MONOCYTES PERCENT AUTO 4.8 % (0.0-8.0); NEUTROPHILS ABSOLUTE AUTO 8.3 K/mm3 (1.8-7.7); NEUTROPHILS PERCENT AUTO 89.7 % (41.0-71.0); PLATELET COUNT,PLT 54 K/mm3 (150-400); RED BLOOD CELL COUNT 3.23 M/mm3 (4.52-5.90); WHITE BLOOD CELL COUNT,WBC 9.25 K/mm3 (3.9-11.3)
[2023-09-10] MEDS: Sodium Chloride 0.9% 1,000 ML IV ONE (09:30)
[2023-09-10 09:42] LABS: CORONAVIRUS COVID-19 NAA NEGATIVE (NEGATIVE); INFLUENZA A NAA NEGATIVE (NEGATIVE); RESPIRATORY SYNCYTIAL VIR NAA NEGATIVE (NEGATIVE)
[2023-09-10 09:52] LABS: A/G RATIO 0.9 (1-2); ALBUMIN 3.1 g/dl (3.4-5.0); ANION GAP 13.9 (5-15); BUN/CREATININE RATIO 20.6 (14-18); C-REACTIVE PROTEIN 10.51 mg/dL (<0.30); CALCIUM 8.7 mg/dL (8.5-10.1); CREATININE 1.6 mg/dL (0.7-1.3); EST CRCL DRUG DOSING (CG) 38.4 mL/min; POTASSIUM,K 3.9 mEq/L (3.5-5.1); PROTEIN TOTAL,TP 6.6 g/dl (6.4-8.2)
[2023-09-10 11:34] LABS: APPEARANCE,URINE CLOUDY (Clear); BILIRUBIN,URINE NEGATIVE (Negative); COLOR,URINE DARK YELLOW (Yellow); GLUCOSE,URINE NEGATIVE (Negative); KETONES,URINE NEGATIVE (Negative); LEUKOCYTE ESTERASE,URINE 2+ (Negative); NITRITE,URINE POSITIVE (Negative); OCCULT BLOOD,URINE 3+ (Negative); PROTEIN,URINE 1+ (Negative); UROBILINOGEN,URINE 0.2 (0.2-1.0)
[2023-09-10 12:18] LABS: BACTERIA,URINE MANY /hpf (FEW); MUCUS,URINE MODERATE /hpf (FEW); RBC,URINE >100 /hpf (0-5); WBC,URINE 50-75 /hpf (0-5)
[2023-09-10] MEDS: cefTRIAXone 1 GM in Sodium Chloride 0.9% 100 ML IV ONE (12:25)
[2023-09-10 12:46] LABS: SLIDE REVIEW ABNORMAL SMEAR
[2023-09-10 12:56] LABS: LACTIC ACID 1.7 mmol/L (0.4-2.0)
[2023-09-10 14:39] VITALS: BP 126/73
== END 2023-09-10 14:35 | disposition home or self-care (01) ==
LOC: JD.ED 08:18
DX: N30.00 Acute cystitis without hematuria (principal); R53.1 Weakness; E78.00 Pure hypercholesterolemia, unspecified; I10 Essential (primary) hypertension; E11.9 Type 2 diabetes mellitus without complications; E03.9 Hypothyroidism, unspecified; E66.9 Obesity, unspecified; Z88.8 Allergy status to other drugs, medicaments and biological substances; Z88.5 Allergy status to narcotic agent; Z79.84 Long term (current) use of oral hypoglycemic drugs; Z88.2 Allergy status to sulfonamides; Z79.899 Other long term (current) drug therapy; Z79.4 Long term (current) use of insulin; Z86.19 Personal history of other infectious and parasitic diseases; Z68.33 Body mass index [BMI] 33.0-33.9, adult
CPT/HCPCS: 0241U; 36415; 71045; 80053; 81001; 83605; 83735; 85025; 86140; 87040; 87086; 96361; 96365; 99285; J0696; J3490; J7030; 87088; 87186

== ENCOUNTER 2023-10-31 19:08 | Emergency (ER) | payer MEDICARE, BC ==
[2023-10-31 20:19] VITALS: BP 152/64; PULSE 69
== END 2023-10-31 21:17 | disposition home or self-care (01) ==
LOC: JD.ED 19:08
DX: T83.021A Displacement of indwelling urethral catheter, initial encounter (principal); I10 Essential (primary) hypertension; E78.00 Pure hypercholesterolemia, unspecified; E03.9 Hypothyroidism, unspecified; E11.9 Type 2 diabetes mellitus without complications; Z79.4 Long term (current) use of insulin; Z79.899 Other long term (current) drug therapy; Z79.890 Hormone replacement therapy; Y73.2 Prosthetic and other implants, materials and accessory gastroenterology and urology devices associated with adverse incidents
CPT/HCPCS: 51702; 99283

== ENCOUNTER 2024-04-01 22:05 | Inpatient (IN) | payer MEDICARE, BC ==
[2024-04-01] MEDS: Sodium Chloride 0.9% 1,000 ML IV SCH (22:55)
[2024-04-01] MEDS: Acetaminophen 325 MG Tab PO ONE (22:55)
[2024-04-01 22:56] LABS: BASOPHILS PERCENT AUTO 0.2 % (0.0-1.0); HEMATOCRIT 32.3 % (42.0-52.0); HEMOGLOBIN 10.7 gm/dl (14.0-18.0); IMMATURE GRAN ABSOLUTE AUTO 0.06 K/mm3 (0.00-0.05); IMMATURE GRAN PERCENT AUTO 1.2 % (0.0-0.4); LYMPHOCYTES ABSOLUTE AUTO 0.3 K/mm3 (1.0-4.8); LYMPHOCYTES PERCENT AUTO 6.4 % (24.0-44.0); MEAN CORPUSCULAR HEMOGLOBIN 32.5 pg (28.0-32.0); MEAN CORPUSCULAR HGB CONC 33.1 g/dl (32.0-36.0); MEAN CORPUSCULAR VOLUME 98.2 fl (83.0-99.0); MEAN PLATELET VOLUME 14.5 fl (9.4-12.4); MONOCYTES ABSOLUTE AUTO 0.4 K/mm3 (0.0-0.8); MONOCYTES PERCENT AUTO 7.4 % (0.0-8.0); NEUTROPHILS ABSOLUTE AUTO 4.4 K/mm3 (1.8-7.7); NEUTROPHILS PERCENT AUTO 84.8 % (41.0-71.0); PLATELET COUNT,PLT 56 K/mm3 (150-400); RED BLOOD CELL COUNT 3.29 M/mm3 (4.52-5.90); WHITE BLOOD CELL COUNT,WBC 5.14 K/mm3 (3.9-11.3)
[2024-04-01 23:18] LABS: LACTIC ACID 1.1 mmol/L (0.4-2.0)
[2024-04-01 23:19] LABS: A/G RATIO 1.1 (1-2); ALANINE AMINOTRANSFERASE,ALT 24 U/L (16-63); ALBUMIN 3.4 g/dl (3.4-5.0); ALKALINE PHOSPHATASE 87 U/L (46-116); ASPARTATE AMNIOTRANSFERASE,AST 34 U/L (15-37); BILIRUBIN TOTAL 0.9 mg/dL (0.2-1.0); BLOOD UREA NITROGEN,BUN 25 mg/dL (7-18); BUN/CREATININE RATIO 17.9 (14-18); C-REACTIVE PROTEIN 5.33 mg/dL (<0.30); CALCIUM 8.5 mg/dL (8.5-10.1); CARBON DIOXIDE,CO2 22 mEq/L (21-32); CHLORIDE,CL 106 mEq/L (98-107); CREATININE 1.4 mg/dL (0.7-1.3); ESTIMATED GFR 50 mL/min (>60); GLUCOSE RANDOM 105 mg/dL (70-99); MAGNESIUM 1.9 mg/dL (1.8-2.4); PROTEIN TOTAL,TP 6.5 g/dl (6.4-8.2); SODIUM,NA 140 mEq/L (136-145); TROPONIN I HIGH SENSITIVITY 11 pg/mL (<=76)
[2024-04-01 23:21] LABS: HEMOGLOBIN A1C 7.7 %
[2024-04-01 23:38] LABS: SLIDE REVIEW ABNORMAL SMEAR
[2024-04-02 00:08] LABS: APPEARANCE,URINE CLEAR (Clear); BILIRUBIN,URINE NEGATIVE (Negative); COLOR,URINE YELLOW (Yellow); GLUCOSE,URINE NEGATIVE (Negative); KETONES,URINE NEGATIVE (Negative); LEUKOCYTE ESTERASE,URINE 1+ (Negative); NITRITE,URINE NEGATIVE (Negative); OCCULT BLOOD,URINE 2+ (Negative); PROTEIN,URINE 2+ (Negative); UROBILINOGEN,URINE 0.2 (0.2-1.0)
[2024-04-02 00:10] LABS: BACTERIA,URINE FEW /hpf (FEW); EPITHELIAL CELLS,URINE 0-5 /hpf (0-5); MUCUS,URINE RARE /hpf (FEW)
[2024-04-02] MEDS: Piperacillin/Tazobactam 4.5 GM in Sodium Chloride 0.9% 100 ML IV ONE (00:13)
[2024-04-02] MEDS: Lactated Ringers 1,000 ML IV SCH (00:13)
[2024-04-02 00:18] LABS: CORONAVIRUS COVID-19 NAA POSITIVE (NEGATIVE); INFLUENZA A NAA NEGATIVE (NEGATIVE); RESPIRATORY SYNCYTIAL VIR NAA NEGATIVE (NEGATIVE)
[2024-04-02] MEDS: Acetaminophen 325 MG Tab PO ONE (02:49)
[2024-04-02] MEDS ORDERED: Polyethylene Glycol 3350 Powder 17 GM Packet PO PRN ×2 (14:04→18:47)
[2024-04-02] MEDS ORDERED: Ondansetron 4 MG Tab.DIS PO PRN (14:04)
[2024-04-02] MEDS ORDERED: Albuterol 0.083% 2.5 MG/3 ML Neb Soln NEB PRN (14:04)
[2024-04-02] MEDS ORDERED: oxyCODONE 5 MG Tab PO PRN (14:04)
[2024-04-02] MEDS ORDERED: Ondansetron 4 MG/2 ML SDV IV PRN (14:04)
[2024-04-02] MEDS ORDERED: Albuterol/Ipratropium 3.0-0.5 MG/3 ML Neb Soln NEB PRN (14:04)
[2024-04-02] MEDS ORDERED: Docusate Sodium 100 MG Cap PO PRN (14:04)
[2024-04-02] MEDS ORDERED: Cholecalciferol (Vitamin D3) 5,000 UNIT Cap PO SCH (14:15)
[2024-04-02] MEDS: REMDESIVIR 200 MG in Sodium Chloride 0.9% 250 ML IV ONE ×2 (14:22→15:10)
[2024-04-02] MEDS: guaiFENesin/Dextromethorphan 100-10 MG/5 ML Soln 5 ML Cup PO SCH (15:11)
[2024-04-02] MEDS: Insulin Lispro 100 Unit/ML 3 ML KwikPen SUBCUT SCH (18:01)
[2024-04-02] MEDS: Tamsulosin 0.4 MG Cap.ER PO SCH (20:35)
[2024-04-02] MEDS: Acetaminophen 325 MG Tab PO PRN (21:00)
[2024-04-03 05:27] LABS: A/G RATIO 0.9 (1-2); ALBUMIN 2.7 g/dl (3.4-5.0); ANION GAP 14.8 (5-15); BILIRUBIN TOTAL 0.4 mg/dL (0.2-1.0); BUN/CREATININE RATIO 21.5 (14-18); CALCIUM 7.8 mg/dL (8.5-10.1); CREATININE 1.3 mg/dL (0.7-1.3); EST CRCL DRUG DOSING (CG) 47.8 mL/min; MAGNESIUM 2.1 mg/dL (1.8-2.4); POTASSIUM,K 3.8 mEq/L (3.5-5.1); PROTEIN TOTAL,TP 5.7 g/dl (6.4-8.2)
[2024-04-03 05:39] LABS: BASOPHILS PERCENT AUTO 0.4 % (0.0-1.0); EOSINOPHILS PERCENT AUTO 0.4 % (0.0-6.0); HEMATOCRIT 27.7 % (42.0-52.0); HEMOGLOBIN 9.1 gm/dl (14.0-18.0); IMMATURE GRAN ABSOLUTE AUTO 0.02 K/mm3 (0.00-0.05); IMMATURE GRAN PERCENT AUTO 0.7 % (0.0-0.4); LYMPHOCYTES ABSOLUTE AUTO 0.4 K/mm3 (1.0-4.8); LYMPHOCYTES PERCENT AUTO 14.7 % (24.0-44.0); MEAN CORPUSCULAR HEMOGLOBIN 32.3 pg (28.0-32.0); MEAN CORPUSCULAR HGB CONC 32.9 g/dl (32.0-36.0); MEAN CORPUSCULAR VOLUME 98.2 fl (83.0-99.0); MEAN PLATELET VOLUME 14.4 fl (9.4-12.4); MONOCYTES ABSOLUTE AUTO 0.3 K/mm3 (0.0-0.8); MONOCYTES PERCENT AUTO 10.1 % (0.0-8.0); NEUTROPHILS ABSOLUTE AUTO 2.1 K/mm3 (1.8-7.7); NEUTROPHILS PERCENT AUTO 73.7 % (41.0-71.0); PLATELET COUNT,PLT 39 K/mm3 (150-400); RED BLOOD CELL COUNT 2.82 M/mm3 (4.52-5.90); WHITE BLOOD CELL COUNT,WBC 2.78 K/mm3 (3.9-11.3)
[2024-04-03] MEDS: Furosemide 40 MG Tab PO SCH (09:59)
[2024-04-03] MEDS: Clopidogrel 75 MG Tab PO SCH (10:00)
[2024-04-03] MEDS: Cholecalciferol (Vitamin D3) 25 MCG Tab PO SCH (10:00)
[2024-04-03] MEDS: Levothyroxine 100 MCG Tab PO SCH (10:00)
[2024-04-03] MEDS: Cyanocobalamin (Vitamin B12) 1,000 MCG Tab PO SCH (10:00)
[2024-04-03] MEDS: REMDESIVIR 100 MG in Sodium Chloride 0.9% 250 ML IV SCH (14:44)
[2024-04-04 04:28] LABS: HEMATOCRIT 27.3 % (42.0-52.0); HEMOGLOBIN 9.1 gm/dl (14.0-18.0); IMMATURE GRAN ABSOLUTE AUTO 0.02 K/mm3 (0.00-0.05); LYMPHOCYTES ABSOLUTE AUTO 0.5 K/mm3 (1.0-4.8); LYMPHOCYTES PERCENT AUTO 23.5 % (24.0-44.0); MEAN CORPUSCULAR HEMOGLOBIN 31.7 pg (28.0-32.0); MEAN CORPUSCULAR HGB CONC 33.3 g/dl (32.0-36.0); MEAN CORPUSCULAR VOLUME 95.1 fl (83.0-99.0); MEAN PLATELET VOLUME 13.8 fl (9.4-12.4); MONOCYTES ABSOLUTE AUTO 0.2 K/mm3 (0.0-0.8); MONOCYTES PERCENT AUTO 8.3 % (0.0-8.0); NEUTROPHILS ABSOLUTE AUTO 1.4 K/mm3 (1.8-7.7); NEUTROPHILS PERCENT AUTO 66.2 % (41.0-71.0); PLATELET COUNT,PLT 35 K/mm3 (150-400); RED BLOOD CELL COUNT 2.87 M/mm3 (4.52-5.90)
[2024-04-04 04:54] LABS: ALBUMIN 2.9 g/dl (3.4-5.0); ANION GAP 14.8 (5-15); BILIRUBIN TOTAL 0.3 mg/dL (0.2-1.0); BUN/CREATININE RATIO 21.7 (14-18); CALCIUM 7.8 mg/dL (8.5-10.1); CREATININE 1.2 mg/dL (0.7-1.3); EST CRCL DRUG DOSING (CG) 51.79 mL/min; MAGNESIUM 1.9 mg/dL (1.8-2.4); POTASSIUM,K 3.8 mEq/L (3.5-5.1); PROTEIN TOTAL,TP 5.9 g/dl (6.4-8.2)
[2024-04-04 05:15] LABS: WHITE BLOOD CELL COUNT,WBC 2.04 K/mm3 (3.9-11.3)
[2024-04-04 05:18] LABS: SLIDE REVIEW ABNORMAL SMEAR
[2024-04-04] MEDS: Ascorbic Acid 500 MG Tab PO SCH (08:19)
[2024-04-04] MEDS ORDERED: Albuterol 6.7 GM Inhaler INH PRN (16:11)
[2024-04-05 05:57] LABS: HEMATOCRIT 27.6 % (42.0-52.0); HEMOGLOBIN 9.3 gm/dl (14.0-18.0); IMMATURE GRAN ABSOLUTE AUTO 0.03 K/mm3 (0.00-0.05); IMMATURE GRAN PERCENT AUTO 1.5 % (0.0-0.4); LYMPHOCYTES ABSOLUTE AUTO 0.5 K/mm3 (1.0-4.8); LYMPHOCYTES PERCENT AUTO 24.9 % (24.0-44.0); MEAN CORPUSCULAR HEMOGLOBIN 31.7 pg (28.0-32.0); MEAN CORPUSCULAR HGB CONC 33.7 g/dl (32.0-36.0); MEAN CORPUSCULAR VOLUME 94.2 fl (83.0-99.0); MONOCYTES ABSOLUTE AUTO 0.1 K/mm3 (0.0-0.8); MONOCYTES PERCENT AUTO 5.9 % (0.0-8.0); NEUTROPHILS ABSOLUTE AUTO 1.4 K/mm3 (1.8-7.7); NEUTROPHILS PERCENT AUTO 66.7 % (41.0-71.0); PLATELET COUNT,PLT 40 K/mm3 (150-400); RED BLOOD CELL COUNT 2.93 M/mm3 (4.52-5.90)
[2024-04-05 06:00] LABS: WHITE BLOOD CELL COUNT,WBC 2.05 K/mm3 (3.9-11.3)
[2024-04-05 06:25] LABS: ANION GAP 13.1 (5-15); BILIRUBIN TOTAL 0.3 mg/dL (0.2-1.0); BUN/CREATININE RATIO 23.6 (14-18); CREATININE 1.1 mg/dL (0.7-1.3); EST CRCL DRUG DOSING (CG) 56.49 mL/min; POTASSIUM,K 4.1 mEq/L (3.5-5.1); PROTEIN TOTAL,TP 5.9 g/dl (6.4-8.2)
[2024-04-05 06:30] LABS: SLIDE REVIEW ABNORMAL SMEAR
[2024-04-05] MEDS ORDERED: 50% Dextrose in Water 50 ML Syringe IVPUSH PRN (15:43)
[2024-04-06] MEDS: Insulin Glargine,Human Rec. Analog 100 Units/ML 3 ML Pen SUBCUT SCH (09:19)
[2024-04-07] MEDS: Insulin Glargine,Human Rec. Analog 100 Units/ML 3 ML Pen SUBCUT SCH (08:53)
[2024-04-07 15:30] VITALS: BP 134/76; PULSE 85
[2024-04-08] MEDS ORDERED: Tamsulosin 0.4 MG Cap.ER PO SCH (09:00)
== END 2024-04-07 15:00 | disposition home or self-care (01) | DRG 179 ==
LOC: JD.ED 22:05 → JD.MS 04-02 14:04
PROVIDERS: ADMIT Family Medicine; ATTEND Internal Medicine
PROC: 0T2BX0Z Change Drainage Device in Bladder, External Approach (ICD-10-PCS; principal; 2024-04-02)
PROC: XW033E5 Introduction of Remdesivir Anti-infective into Peripheral Vein, Percutaneous Approach, New Technology Group 5 (ICD-10-PCS; 2024-04-02)
DX: U07.1 COVID-19 (principal); I10 Essential (primary) hypertension; E11.9 Type 2 diabetes mellitus without complications; N18.31 Chronic kidney disease, stage 3a; E11.22 Type 2 diabetes mellitus with diabetic chronic kidney disease; I12.9 Hypertensive chronic kidney disease with stage 1 through stage 4 chronic kidney disease, or unspecified chronic kidney disease; E78.00 Pure hypercholesterolemia, unspecified; Z79.890 Hormone replacement therapy; E03.9 Hypothyroidism, unspecified; Z79.1 Long term (current) use of non-steroidal anti-inflammatories (NSAID); E66.9 Obesity, unspecified; Z88.5 Allergy status to narcotic agent; Z96.649 Presence of unspecified artificial hip joint; N31.9 Neuromuscular dysfunction of bladder, unspecified; Z68.32 Body mass index [BMI] 32.0-32.9, adult; D69.6 Thrombocytopenia, unspecified; H91.90 Unspecified hearing loss, unspecified ear; H54.7 Unspecified visual loss; K62.7 Radiation proctitis; Z88.7 Allergy status to serum and vaccine; Z88.2 Allergy status to sulfonamides; Z88.8 Allergy status to other drugs, medicaments and biological substances; Z88.1 Allergy status to other antibiotic agents; Z79.899 Other long term (current) drug therapy; Z79.4 Long term (current) use of insulin; Z79.02 Long term (current) use of antithrombotics/antiplatelets; Z79.51 Long term (current) use of inhaled steroids; Z79.2 Long term (current) use of antibiotics; Z87.19 Personal history of other diseases of the digestive system; Z87.442 Personal history of urinary calculi; Z68.31 Body mass index [BMI] 31.0-31.9, adult; Z95.2 Presence of prosthetic heart valve; Z98.890 Other specified postprocedural states; Z97.8 Presence of other specified devices; Z85.46 Personal history of malignant neoplasm of prostate; Z85.71 Personal history of Hodgkin lymphoma
CPT/HCPCS: 0241U; 36415; 51702; 71045; 80053; 81001; 82947; 83036; 83605; 83735; 83880; 84484; 85025; 86140; 87040; 87070; 87081; 87086; 87088; 87186; 87205; 87651; 93005; 94760; 94761; 96361; 96365; 97116; 97161; 97530; 99285; 93010; 99223; 99232; 99283; A9270-GY; J0248; J1815; J1815-GY; J2543; J3490; J7030; J7050; J7120

== ENCOUNTER 2024-08-14 10:04 | Emergency (ER) | payer MEDICARE, BC ==
[2024-08-14 11:25] LABS: BASOPHILS PERCENT AUTO 0.2 % (0.0-1.0); EOSINOPHILS PERCENT AUTO 0.6 % (0.0-6.0); HEMATOCRIT 29.5 % (42.0-52.0); HEMOGLOBIN 9.3 gm/dl (14.0-18.0); IMMATURE GRAN ABSOLUTE AUTO 0.35 K/mm3 (0.00-0.05); IMMATURE GRAN PERCENT AUTO 6.5 % (0.0-0.4); LYMPHOCYTES ABSOLUTE AUTO 0.5 K/mm3 (1.0-4.8); LYMPHOCYTES PERCENT AUTO 8.6 % (24.0-44.0); MEAN CORPUSCULAR HEMOGLOBIN 29.8 pg (28.0-32.0); MEAN CORPUSCULAR HGB CONC 31.5 g/dl (32.0-36.0); MEAN CORPUSCULAR VOLUME 94.6 fl (83.0-99.0); MONOCYTES ABSOLUTE AUTO 0.3 K/mm3 (0.0-0.8); MONOCYTES PERCENT AUTO 6.2 % (0.0-8.0); NEUTROPHILS ABSOLUTE AUTO 4.2 K/mm3 (1.8-7.7); NEUTROPHILS PERCENT AUTO 77.9 % (41.0-71.0); PLATELET COUNT,PLT 63 K/mm3 (150-400); RED BLOOD CELL COUNT 3.12 M/mm3 (4.52-5.90); WHITE BLOOD CELL COUNT,WBC 5.35 K/mm3 (3.9-11.3)
[2024-08-14] MEDS: Sodium Chloride 0.9% 500 ML IV ONE (11:30)
[2024-08-14 11:36] LABS: INR 0.98; PROTHROMBIN TIME 10.4 SECONDS (9.7-12.0)
[2024-08-14 11:44] LABS: A/G RATIO 0.9 (1-2); ALBUMIN 3.1 g/dl (3.4-5.0); ANION GAP 11.9 (5-15); BILIRUBIN TOTAL 0.4 mg/dL (0.2-1.0); BUN/CREATININE RATIO 18.6 (14-18); CALCIUM 8.4 mg/dL (8.5-10.1); CREATININE 1.4 mg/dL (0.7-1.3); EST CRCL DRUG DOSING (CG) 44.39 mL/min; POTASSIUM,K 4.9 mEq/L (3.5-5.1); PROTEIN TOTAL,TP 6.5 g/dl (6.4-8.2)
[2024-08-14 12:12] LABS: APPEARANCE,URINE CLEAR (Clear); BILIRUBIN,URINE NEGATIVE (Negative); COLOR,URINE YELLOW (Yellow); GLUCOSE,URINE NEGATIVE (Negative); KETONES,URINE NEGATIVE (Negative); LEUKOCYTE ESTERASE,URINE TRACE (Negative); NITRITE,URINE NEGATIVE (Negative); OCCULT BLOOD,URINE 3+ (Negative); PH,URINE 6.5 (5.0-8.0); PROTEIN,URINE 1+ (Negative); UROBILINOGEN,URINE 0.2 (0.2-1.0)
[2024-08-14 12:33] LABS: SLIDE REVIEW ABNORMAL SMEAR
[2024-08-14 12:36] LABS: CORONAVIRUS COVID-19 NAA NEGATIVE (NEGATIVE); INFLUENZA A NAA NEGATIVE (NEGATIVE); RESPIRATORY SYNCYTIAL VIR NAA NEGATIVE (NEGATIVE)
[2024-08-14 12:37] LABS: BACTERIA,URINE FEW /hpf (FEW); MUCUS,URINE NOT SEEN /hpf (FEW); RBC,URINE 40-50 /hpf (0-5); SQUAMOUS EPITHELIAL CELLS,UR 0-5 /hpf (0-5); WBC,URINE 0-5 /hpf (0-5)
[2024-08-14] MEDS: Furosemide 100 MG/10 ML SDV IVPUSH ONE (13:03)
[2024-08-14 13:55] VITALS: BP 139/88; PULSE 89
== END 2024-08-14 13:40 | disposition home or self-care (01) ==
LOC: JD.ED 10:04
DX: I13.0 Hypertensive heart and chronic kidney disease with heart failure and stage 1 through stage 4 chronic kidney disease, or unspecified chronic kidney disease (principal); I50.9 Heart failure, unspecified; N18.9 Chronic kidney disease, unspecified; E11.22 Type 2 diabetes mellitus with diabetic chronic kidney disease; E78.00 Pure hypercholesterolemia, unspecified; E03.9 Hypothyroidism, unspecified; Z96.0 Presence of urogenital implants; Z88.7 Allergy status to serum and vaccine; Z88.5 Allergy status to narcotic agent; Z88.8 Allergy status to other drugs, medicaments and biological substances; Z88.2 Allergy status to sulfonamides; Z79.890 Hormone replacement therapy; Z79.4 Long term (current) use of insulin; Z79.899 Other long term (current) drug therapy; Z86.16 Personal history of COVID-19
CPT/HCPCS: 0241U; 36415; 51702; 71045; 80053; 81001; 82550; 83690; 83735; 83880; 84484; 85025; 85610; 93005; 96361; 96374; 99285; J1940; J7030; 93010; 99284

== ENCOUNTER 2024-09-09 10:57 | Emergency (ER) | payer MEDICARE, BC ==
[2024-09-09 11:28] LABS: BASOPHILS PERCENT AUTO 0.2 % (0.0-1.0); EOSINOPHILS PERCENT AUTO 0.7 % (0.0-6.0); HEMATOCRIT 32.1 % (42.0-52.0); HEMOGLOBIN 10.1 gm/dl (14.0-18.0); IMMATURE GRAN PERCENT AUTO 4.6 % (0.0-0.4); LYMPHOCYTES ABSOLUTE AUTO 0.4 K/mm3 (1.0-4.8); LYMPHOCYTES PERCENT AUTO 9.7 % (24.0-44.0); MEAN CORPUSCULAR HEMOGLOBIN 30.1 pg (28.0-32.0); MEAN CORPUSCULAR HGB CONC 31.5 g/dl (32.0-36.0); MEAN CORPUSCULAR VOLUME 95.5 fl (83.0-99.0); MONOCYTES ABSOLUTE AUTO 0.3 K/mm3 (0.0-0.8); MONOCYTES PERCENT AUTO 6.2 % (0.0-8.0); NEUTROPHILS ABSOLUTE AUTO 3.4 K/mm3 (1.8-7.7); NEUTROPHILS PERCENT AUTO 78.6 % (41.0-71.0); PLATELET COUNT,PLT 47 K/mm3 (150-400); RED BLOOD CELL COUNT 3.36 M/mm3 (4.52-5.90); WHITE BLOOD CELL COUNT,WBC 4.34 K/mm3 (3.9-11.3)
[2024-09-09 11:59] LABS: ALBUMIN 3.3 g/dl (3.4-5.0); ANION GAP 15.5 (5-15); BILIRUBIN TOTAL 0.5 mg/dL (0.2-1.0); BUN/CREATININE RATIO 18.6 (14-18); CALCIUM 8.7 mg/dL (8.5-10.1); CREATININE 1.4 mg/dL (0.7-1.3); EST CRCL DRUG DOSING (CG) 43.11 mL/min; POTASSIUM,K 4.5 mEq/L (3.5-5.1); PROTEIN TOTAL,TP 6.7 g/dl (6.4-8.2); TSH 3.793 uIU/mL (0.358-3.74)
[2024-09-09] MEDS: Sodium Chloride 0.9% 500 ML IV SCH (12:10)
[2024-09-09 12:51] LABS: SLIDE REVIEW ABNORMAL SMEAR
[2024-09-09] MEDS: Furosemide 40 MG/4 ML VIAL IVPUSH ONE (14:24)
[2024-09-09] MEDS: Metoprolol Tartrate 5 MG/5 ML SDV IVPUSH ONE ×2 (15:00→17:03)
[2024-09-09] MEDS: Iopamidol 755 Mg/ML 100 ML Bottle IVPUSH ONE (15:44)
[2024-09-09] MEDS: Sodium Chloride 0.9% 100 ML IV SCH (15:45)
[2024-09-09] MEDS: Metoprolol Tartrate 25 MG Tab PO ONE (17:14)
[2024-09-09 17:15] VITALS: PULSE 130
[2024-09-09 18:29] VITALS: BP 140/85
== END 2024-09-09 18:34 | disposition home or self-care (01) ==
LOC: JD.ED 10:57
DX: I49.3 Ventricular premature depolarization (principal); D69.6 Thrombocytopenia, unspecified; I10 Essential (primary) hypertension; E11.9 Type 2 diabetes mellitus without complications; E66.9 Obesity, unspecified; E03.9 Hypothyroidism, unspecified; Z88.8 Allergy status to other drugs, medicaments and biological substances; Z88.7 Allergy status to serum and vaccine; Z88.5 Allergy status to narcotic agent; Z79.890 Hormone replacement therapy; Z79.4 Long term (current) use of insulin; Z79.899 Other long term (current) drug therapy; Z86.16 Personal history of COVID-19
CPT/HCPCS: 36415; 71045; 71045-26; 71275; 71275-26; 80053; 83880; 84443; 84484; 85025; 85379; 93005; 93010; 93246; 96361; 96374; 96375; 96376; 99284; 99285-25; A9270-GY; J1940; J3490; J7040; Q9967

== ENCOUNTER 2024-10-11 08:36 | Inpatient (IN) | payer MEDICARE, BC ==
[2024-10-11] MEDS ORDERED: Sodium Chloride 0.9% 10 ML Syringe FLUSH PRN (09:03)
[2024-10-11] MEDS: Albuterol/Ipratropium 3.0-0.5 MG/3 ML Neb Soln NEB SCH (09:15)
[2024-10-11 09:50] LABS: CORONAVIRUS COVID-19 NAA NEGATIVE (NEGATIVE); INFLUENZA A NAA NEGATIVE (NEGATIVE); RESPIRATORY SYNCYTIAL VIR NAA NEGATIVE (NEGATIVE)
[2024-10-11 09:56] LABS: BASOPHILS PERCENT AUTO 0.1 % (0.0-1.0); HEMATOCRIT 27.4 % (42.0-52.0); IMMATURE GRAN ABSOLUTE AUTO 0.25 K/mm3 (0.00-0.05); IMMATURE GRAN PERCENT AUTO 3.4 % (0.0-0.4); LYMPHOCYTES ABSOLUTE AUTO 0.4 K/mm3 (1.0-4.8); LYMPHOCYTES PERCENT AUTO 5.4 % (24.0-44.0); MEAN CORPUSCULAR HEMOGLOBIN 28.7 pg (28.0-32.0); MEAN CORPUSCULAR HGB CONC 29.9 g/dl (32.0-36.0); MEAN CORPUSCULAR VOLUME 95.8 fl (83.0-99.0); MONOCYTES ABSOLUTE AUTO 0.7 K/mm3 (0.0-0.8); MONOCYTES PERCENT AUTO 8.8 % (0.0-8.0); NEUTROPHILS ABSOLUTE AUTO 6.1 K/mm3 (1.8-7.7); NEUTROPHILS PERCENT AUTO 82.3 % (41.0-71.0); PLATELET COUNT,PLT 41 K/mm3 (150-400); RED BLOOD CELL COUNT 2.86 M/mm3 (4.52-5.90); WHITE BLOOD CELL COUNT,WBC 7.38 K/mm3 (3.9-11.3)
[2024-10-11 10:12] LABS: HEMOGLOBIN 8.2 gm/dl (14.0-18.0); LACTIC ACID 1.5 mmol/L (0.4-2.0)
[2024-10-11 10:16] LABS: A/G RATIO 0.7 (1-2); ALBUMIN 2.8 g/dl (3.4-5.0); ANION GAP 16.8 (5-15); BUN/CREATININE RATIO 19.3 (14-18); CALCIUM 7.2 mg/dL (8.5-10.1); CREATININE 1.4 mg/dL (0.7-1.3); EST CRCL DRUG DOSING (CG) 43.11 mL/min; MAGNESIUM 2.2 mg/dL (1.8-2.4); POTASSIUM,K 4.8 mEq/L (3.5-5.1); PROTEIN TOTAL,TP 6.8 g/dl (6.4-8.2); TSH 3.156 uIU/mL (0.358-3.74)
[2024-10-11 10:48] LABS: SLIDE REVIEW ABNORMAL SMEAR
[2024-10-11] MEDS: Furosemide 40 MG/4 ML VIAL IVPUSH ONE (11:43)
[2024-10-11 11:58] LABS: APPEARANCE,URINE SLT CLOUDY (Clear); BILIRUBIN,URINE NEGATIVE (Negative); COLOR,URINE YELLOW (Yellow); GLUCOSE,URINE NEGATIVE (Negative); KETONES,URINE 2+ (Negative); LEUKOCYTE ESTERASE,URINE 2+ (Negative); NITRITE,URINE NEGATIVE (Negative); OCCULT BLOOD,URINE 2+ (Negative); PH,URINE 5.5 (5.0-8.0); PROTEIN,URINE 2+ (Negative); UROBILINOGEN,URINE 0.2 (0.2-1.0)
[2024-10-11 12:22] LABS: BACTERIA,URINE MODERATE /hpf (FEW); EPITHELIAL CELLS,URINE 0-5 /hpf (0-5); WBC CLUMPS,URINE FEW /hpf (NOT SEEN); WBC,URINE 40-50 /hpf (0-5)
[2024-10-11 12:23] LABS: AMORPHOUS SEDIMENT,URINE FEW /hpf (NOT SEEN); COARSE GRANULAR CASTS,URINE 0-5 /hpf (0-5); MUCUS,URINE MODERATE /hpf (FEW)
[2024-10-11] MEDS: cefTRIAXone 2 GM Vial IVPUSH SCH (14:19)
[2024-10-11] MEDS ORDERED: 50% Dextrose in Water 50 ML Syringe IVPUSH PRN (17:00)
[2024-10-11] MEDS ORDERED: Ondansetron 4 MG/2 ML SDV IV PRN (17:08)
[2024-10-11] MEDS ORDERED: Acetaminophen 325 MG Tab PO PRN (17:08)
[2024-10-11] MEDS ORDERED: Acetaminophen/HYDROcodone 325-5 MG Tab PO PRN (17:08)
[2024-10-11] MEDS: Calcium Gluconate 10% 1 GM/10 ML SDV IV ONE (17:18)
[2024-10-11] MEDS: Insulin Lispro 100 Unit/ML 3 ML KwikPen SUBCUT SCH (17:19)
[2024-10-11] MEDS: Metoprolol Tartrate 25 MG Tab PO SCH (17:22)
[2024-10-11 17:49] LABS: IRON,FE 24 ug/dL (65-175); PERCENT FE SATURATION 14 % (20-55); TRANSFERRIN 136 mg/dL (202-364)
[2024-10-11 17:57] LABS: TOTAL IRON BINDING CAPACITY 170 ug/dL (100-400)
[2024-10-11] MEDS: Famotidine 20 MG/2 ML SDV IVPUSH SCH (21:47)
[2024-10-11] MEDS: Melatonin 3 MG Tab PO PRN (21:51)
[2024-10-11] MEDS: Tamsulosin 0.4 MG Cap.ER PO SCH (21:51)
[2024-10-12] MEDS: Levothyroxine 100 MCG Tab PO SCH (04:52)
[2024-10-12 05:43] LABS: BASOPHILS PERCENT AUTO 0.1 % (0.0-1.0); HEMATOCRIT 24.3 % (42.0-52.0); IMMATURE GRAN ABSOLUTE AUTO 0.21 K/mm3 (0.00-0.05); IMMATURE GRAN PERCENT AUTO 3.1 % (0.0-0.4); LYMPHOCYTES ABSOLUTE AUTO 0.5 K/mm3 (1.0-4.8); LYMPHOCYTES PERCENT AUTO 6.7 % (24.0-44.0); MEAN CORPUSCULAR HEMOGLOBIN 28.3 pg (28.0-32.0); MEAN CORPUSCULAR HGB CONC 29.6 g/dl (32.0-36.0); MEAN CORPUSCULAR VOLUME 95.7 fl (83.0-99.0); MONOCYTES ABSOLUTE AUTO 0.6 K/mm3 (0.0-0.8); MONOCYTES PERCENT AUTO 9.4 % (0.0-8.0); NEUTROPHILS ABSOLUTE AUTO 5.4 K/mm3 (1.8-7.7); NEUTROPHILS PERCENT AUTO 80.7 % (41.0-71.0); PLATELET COUNT,PLT 36 K/mm3 (150-400); RED BLOOD CELL COUNT 2.54 M/mm3 (4.52-5.90); WHITE BLOOD CELL COUNT,WBC 6.69 K/mm3 (3.9-11.3)
[2024-10-12 05:54] LABS: HEMOGLOBIN 7.2 gm/dl (14.0-18.0)
[2024-10-12 06:10] LABS: A/G RATIO 0.7 (1-2); ALANINE AMINOTRANSFERASE,ALT 11 U/L (16-63); ALBUMIN 2.4 g/dl (3.4-5.0); ALKALINE PHOSPHATASE 166 U/L (46-116); ASPARTATE AMNIOTRANSFERASE,AST 14 U/L (15-37); BILIRUBIN TOTAL 0.5 mg/dL (0.2-1.0); BLOOD UREA NITROGEN,BUN 31 mg/dL (7-18); BUN/CREATININE RATIO 22.1 (14-18); CALCIUM 7.1 mg/dL (8.5-10.1); CARBON DIOXIDE,CO2 24 mEq/L (21-32); CHLORIDE,CL 108 mEq/L (98-107); CREATININE 1.4 mg/dL (0.7-1.3); EST CRCL DRUG DOSING (CG) 43.11 mL/min; ESTIMATED GFR 50 mL/min (>60); GLUCOSE RANDOM 173 mg/dL (70-99); MAGNESIUM 2.3 mg/dL (1.8-2.4); PHOSPHORUS 2.2 mg/dL (2.6-4.7); PROTEIN TOTAL,TP 6.1 g/dl (6.4-8.2); SODIUM,NA 141 mEq/L (136-145)
[2024-10-12 06:27] LABS: SLIDE REVIEW ABNORMAL SMEAR
[2024-10-12 06:44] LABS: C-REACTIVE PROTEIN > 25.00 mg/dL (<0.30)
[2024-10-12] MEDS: Albuterol/Ipratropium 3.0-0.5 MG/3 ML Neb Soln NEB PRN (08:37)
[2024-10-12] MEDS: Cyanocobalamin (Vitamin B12) 1,000 MCG Tab PO SCH (08:44)
[2024-10-12] MEDS: Furosemide 40 MG Tab PO SCH (08:44)
[2024-10-12] MEDS: Insulin Glargine,Human Rec. Analog 100 Units/ML 3 ML Pen SUBCUT SCH (08:47)
[2024-10-12] MEDS: cefTRIAXone 1 GM Vial IVPUSH SCH (13:13)
[2024-10-12] MEDS: Calcium Gluconate 10% 1 GM/10 ML SDV IV ONE (15:52)
[2024-10-12] MEDS: Furosemide 20 MG/2 ML VIAL IVPUSH ONE (16:03)
[2024-10-12] MEDS: Phosphorus #1 250 MG Tab PO ONE (16:03)
[2024-10-13 05:42] LABS: BASOPHILS PERCENT AUTO 0.2 % (0.0-1.0); EOSINOPHILS PERCENT AUTO 0.2 % (0.0-6.0); HEMATOCRIT 22.3 % (42.0-52.0); IMMATURE GRAN ABSOLUTE AUTO 0.49 K/mm3 (0.00-0.05); IMMATURE GRAN PERCENT AUTO 8.3 % (0.0-0.4); LYMPHOCYTES ABSOLUTE AUTO 0.5 K/mm3 (1.0-4.8); LYMPHOCYTES PERCENT AUTO 7.8 % (24.0-44.0); MEAN CORPUSCULAR HEMOGLOBIN 28.6 pg (28.0-32.0); MEAN CORPUSCULAR VOLUME 95.3 fl (83.0-99.0); MONOCYTES ABSOLUTE AUTO 0.6 K/mm3 (0.0-0.8); MONOCYTES PERCENT AUTO 10.1 % (0.0-8.0); NEUTROPHILS ABSOLUTE AUTO 4.4 K/mm3 (1.8-7.7); NEUTROPHILS PERCENT AUTO 73.4 % (41.0-71.0); PLATELET COUNT,PLT 34 K/mm3 (150-400); RED BLOOD CELL COUNT 2.34 M/mm3 (4.52-5.90); WHITE BLOOD CELL COUNT,WBC 5.93 K/mm3 (3.9-11.3)
[2024-10-13 05:59] LABS: HEMOGLOBIN 6.7 gm/dl (14.0-18.0)
[2024-10-13 06:10] LABS: A/G RATIO 0.6 (1-2); ALANINE AMINOTRANSFERASE,ALT 15 U/L (16-63); ALBUMIN 2.2 g/dl (3.4-5.0); ALKALINE PHOSPHATASE 156 U/L (46-116); ASPARTATE AMNIOTRANSFERASE,AST 23 U/L (15-37); BILIRUBIN TOTAL 0.3 mg/dL (0.2-1.0); BLOOD UREA NITROGEN,BUN 34 mg/dL (7-18); BUN/CREATININE RATIO 28.3 (14-18); CALCIUM 7.2 mg/dL (8.5-10.1); CARBON DIOXIDE,CO2 22 mEq/L (21-32); CHLORIDE,CL 109 mEq/L (98-107); CREATININE 1.2 mg/dL (0.7-1.3); ESTIMATED GFR 60 mL/min (>60); GLUCOSE RANDOM 140 mg/dL (70-99); MAGNESIUM 2.4 mg/dL (1.8-2.4); PHOSPHORUS 2.2 mg/dL (2.6-4.7); PROTEIN TOTAL,TP 5.9 g/dl (6.4-8.2); SODIUM,NA 142 mEq/L (136-145)
[2024-10-13 06:23] LABS: SLIDE REVIEW ABNORMAL SMEAR
[2024-10-13 06:44] LABS: C-REACTIVE PROTEIN > 25.00 mg/dL (<0.30)
[2024-10-13] MEDS: Pantoprazole 40 MG Vial IVPUSH ONE ×2 (09:01→09:21)
[2024-10-13] MEDS: Sodium Ferric Gluconate Cmplex 125 MG in Sodium Chloride 0.9% 100 ML IV ONE (09:09)
[2024-10-13] MEDS: Sodium Chloride 3% Inhalation Soln 4 ML Neb NEB SCH (10:00)
[2024-10-13] MEDS: Doxycycline 100 MG in Sodium Chloride 0.9% 100 ML IV SCH (10:23)
[2024-10-13] MEDS: cefTRIAXone 1 GM Vial IVPUSH SCH (10:35)
[2024-10-13] MEDS: Sodium Chloride 0.9% 250 ML IV SCH (11:44)
[2024-10-13] MEDS: Furosemide 40 MG/4 ML VIAL IVPUSH ONE (14:28)
[2024-10-13] MEDS: Albuterol/Ipratropium 3.0-0.5 MG/3 ML Neb Soln NEB SCH (15:26)
[2024-10-13] MEDS: Potassium Phosphates 30 MMOLE in Sodium Chloride 0.9% 500 ML IV SCH (15:32)
[2024-10-13] MEDS: Calcium Carbonate 500 MG Tab.Chew PO ONE (15:33)
[2024-10-13] MEDS ORDERED: Albuterol/Ipratropium 3.0-0.5 MG/3 ML Neb Soln NEB SCH (17:00)
[2024-10-13] MEDS: Pantoprazole 40 MG Vial IVPUSH SCH (20:39)
[2024-10-14 04:37] LABS: BASOPHILS PERCENT AUTO 0.3 % (0.0-1.0); EOSINOPHILS PERCENT AUTO 0.3 % (0.0-6.0); HEMATOCRIT 23.1 % (42.0-52.0); IMMATURE GRAN ABSOLUTE AUTO 0.62 K/mm3 (0.00-0.05); IMMATURE GRAN PERCENT AUTO 10.7 % (0.0-0.4); LYMPHOCYTES ABSOLUTE AUTO 0.5 K/mm3 (1.0-4.8); LYMPHOCYTES PERCENT AUTO 9.3 % (24.0-44.0); MEAN CORPUSCULAR HEMOGLOBIN 29.4 pg (28.0-32.0); MEAN CORPUSCULAR HGB CONC 31.6 g/dl (32.0-36.0); MEAN CORPUSCULAR VOLUME 93.1 fl (83.0-99.0); MEAN PLATELET VOLUME 10.8 fl (9.4-12.4); MONOCYTES ABSOLUTE AUTO 0.6 K/mm3 (0.0-0.8); MONOCYTES PERCENT AUTO 9.5 % (0.0-8.0); NEUTROPHILS ABSOLUTE AUTO 4.1 K/mm3 (1.8-7.7); NEUTROPHILS PERCENT AUTO 69.9 % (41.0-71.0); NRBC ABSOLUTE 0.02 (0.00-0.02); NRBC PERCENT 0.3 % (0.0-0.2); PLATELET COUNT,PLT 75 K/mm3 (150-400); RED BLOOD CELL COUNT 2.48 M/mm3 (4.52-5.90)
[2024-10-14 05:15] LABS: A/G RATIO 0.6 (1-2); ALBUMIN 2.4 g/dl (3.4-5.0); ANION GAP 13.8 (5-15); BILIRUBIN TOTAL 0.4 mg/dL (0.2-1.0); BUN/CREATININE RATIO 23.8 (14-18); C-REACTIVE PROTEIN 19.69 mg/dL (<0.30); CREATININE 1.3 mg/dL (0.7-1.3); EST CRCL DRUG DOSING (CG) 46.43 mL/min; MAGNESIUM 2.2 mg/dL (1.8-2.4); POTASSIUM,K 3.8 mEq/L (3.5-5.1); PROTEIN TOTAL,TP 6.3 g/dl (6.4-8.2)
[2024-10-14 06:09] LABS: HEMOGLOBIN 7.3 gm/dl (14.0-18.0)
[2024-10-14 06:37] LABS: SLIDE REVIEW ABNORMAL SMEAR
[2024-10-14] MEDS: Tamsulosin 0.4 MG Cap.ER PO SCH (08:19)
[2024-10-14] MEDS: Cholecalciferol (Vitamin D3) 25 MCG Tab PO SCH (08:20)
[2024-10-14] MEDS: Insulin Glargine,Human Rec. Analog 100 Units/ML 3 ML Pen SUBCUT SCH (08:22)
[2024-10-14] MEDS ORDERED: Pantoprazole 40 MG Vial IVPUSH SCH (09:00)
[2024-10-14] MEDS: Sodium Ferric Gluconate Cmplex 125 MG in Sodium Chloride 0.9% 100 ML IV SCH (09:51)
[2024-10-14] MEDS: Sodium Chloride 3% Inhalation Soln 4 ML Neb NEB SCH (20:05)
[2024-10-15 05:36] LABS: HEMATOCRIT 25.2 % (42.0-52.0); HEMOGLOBIN 7.9 gm/dl (14.0-18.0); MEAN CORPUSCULAR HGB CONC 31.3 g/dl (32.0-36.0); MEAN CORPUSCULAR VOLUME 95.8 fl (83.0-99.0); MEAN PLATELET VOLUME 12.1 fl (9.4-12.4); NRBC ABSOLUTE 0.02 (0.00-0.02); NRBC PERCENT 0.4 % (0.0-0.2); PLATELET COUNT,PLT 66 K/mm3 (150-400); RED BLOOD CELL COUNT 2.63 M/mm3 (4.52-5.90); WHITE BLOOD CELL COUNT,WBC 5.69 K/mm3 (3.9-11.3)
[2024-10-15 05:54] LABS: ANION GAP 13.7 (5-15); C-REACTIVE PROTEIN 14.25 mg/dL (<0.30); CREATININE 1.2 mg/dL (0.7-1.3); EST CRCL DRUG DOSING (CG) 50.3 mL/min; MAGNESIUM 2.2 mg/dL (1.8-2.4); PHOSPHORUS 2.1 mg/dL (2.6-4.7); POTASSIUM,K 3.7 mEq/L (3.5-5.1)
[2024-10-15] MEDS: Insulin Glargine,Human Rec. Analog 100 Units/ML 3 ML Pen SUBCUT SCH (09:29)
[2024-10-15] MEDS: Furosemide 40 MG Tab PO SCH (15:38)
[2024-10-16 04:25] LABS: BASOPHILS PERCENT AUTO 0.3 % (0.0-1.0); EOSINOPHILS ABSOLUTE AUTO 0.1 K/mm3 (0.0-0.4); EOSINOPHILS PERCENT AUTO 0.8 % (0.0-6.0); HEMATOCRIT 24.4 % (42.0-52.0); HEMOGLOBIN 7.8 gm/dl (14.0-18.0); IMMATURE GRAN ABSOLUTE AUTO 0.95 K/mm3 (0.00-0.05); IMMATURE GRAN PERCENT AUTO 15.2 % (0.0-0.4); LYMPHOCYTES ABSOLUTE AUTO 0.7 K/mm3 (1.0-4.8); LYMPHOCYTES PERCENT AUTO 11.7 % (24.0-44.0); MEAN CORPUSCULAR HEMOGLOBIN 31.2 pg (28.0-32.0); MEAN CORPUSCULAR VOLUME 97.6 fl (83.0-99.0); MEAN PLATELET VOLUME 12.2 fl (9.4-12.4); MONOCYTES ABSOLUTE AUTO 0.6 K/mm3 (0.0-0.8); MONOCYTES PERCENT AUTO 9.4 % (0.0-8.0); NEUTROPHILS ABSOLUTE AUTO 3.9 K/mm3 (1.8-7.7); NEUTROPHILS PERCENT AUTO 62.6 % (41.0-71.0); NRBC ABSOLUTE 0.02 (0.00-0.02); NRBC PERCENT 0.3 % (0.0-0.2); PLATELET COUNT,PLT 61 K/mm3 (150-400); WHITE BLOOD CELL COUNT,WBC 6.26 K/mm3 (3.9-11.3)
[2024-10-16 04:43] LABS: ANION GAP 16.8 (5-15); BUN/CREATININE RATIO 21.8 (14-18); C-REACTIVE PROTEIN 10.88 mg/dL (<0.30); CALCIUM 7.4 mg/dL (8.5-10.1); CREATININE 1.1 mg/dL (0.7-1.3); EST CRCL DRUG DOSING (CG) 54.87 mL/min; POTASSIUM,K 3.8 mEq/L (3.5-5.1)
[2024-10-16 05:53] LABS: SLIDE REVIEW ABNORMAL SMEAR
[2024-10-16] MEDS: Clopidogrel 75 MG Tab PO SCH (09:23)
[2024-10-16] MEDS: Metoprolol Tartrate 5 MG/5 ML SDV IVPUSH PRN (20:55)
[2024-10-17 04:35] LABS: BASOPHILS PERCENT AUTO 0.3 % (0.0-1.0); EOSINOPHILS PERCENT AUTO 0.4 % (0.0-6.0); HEMATOCRIT 26.1 % (42.0-52.0); HEMOGLOBIN 8.3 gm/dl (14.0-18.0); IMMATURE GRAN PERCENT AUTO 14.1 % (0.0-0.4); LYMPHOCYTES ABSOLUTE AUTO 0.9 K/mm3 (1.0-4.8); MEAN CORPUSCULAR HEMOGLOBIN 30.9 pg (28.0-32.0); MEAN CORPUSCULAR HGB CONC 31.8 g/dl (32.0-36.0); MEAN PLATELET VOLUME 12.1 fl (9.4-12.4); MONOCYTES ABSOLUTE AUTO 0.6 K/mm3 (0.0-0.8); MONOCYTES PERCENT AUTO 8.7 % (0.0-8.0); NEUTROPHILS ABSOLUTE AUTO 4.6 K/mm3 (1.8-7.7); NEUTROPHILS PERCENT AUTO 64.5 % (41.0-71.0); NRBC ABSOLUTE 0.03 (0.00-0.02); NRBC PERCENT 0.4 % (0.0-0.2); PLATELET COUNT,PLT 54 K/mm3 (150-400); RED BLOOD CELL COUNT 2.69 M/mm3 (4.52-5.90)
[2024-10-17 04:54] LABS: ANION GAP 15.9 (5-15); BUN/CREATININE RATIO 19.2 (14-18); C-REACTIVE PROTEIN 8.19 mg/dL (<0.30); CALCIUM 8.3 mg/dL (8.5-10.1); CREATININE 1.2 mg/dL (0.7-1.3); EST CRCL DRUG DOSING (CG) 50.3 mL/min; POTASSIUM,K 3.9 mEq/L (3.5-5.1)
[2024-10-17 05:27] LABS: SLIDE REVIEW ABNORMAL SMEAR
[2024-10-17] MEDS: Pantoprazole 40 MG Tab.CR PO SCH (06:33)
[2024-10-17] MEDS: Furosemide 40 MG Tab PO SCH (08:59)
[2024-10-17] MEDS: guaiFENesin 600 MG Tab.ER PO SCH (09:26)
[2024-10-17] MEDS: Sodium Chloride 0.9% 500 ML IV ONE ×2 (11:29→13:05)
[2024-10-17] MEDS: VANCOmycin 750 MG/150 ML 750 MG in Premix Bag 1 BAG IV SCH (13:06)
[2024-10-17] MEDS: Sennosides/Docusate Sodium 50-8.6 MG Tab PO PRN (13:06)
[2024-10-17] MEDS: Sodium Chloride 0.9% 1,000 ML IV SCH (17:25)
[2024-10-18] MEDS ORDERED: Benzonatate 100 MG Cap PO PRN (09:09)
[2024-10-18 16:38] VITALS: BP 123/94; PULSE 79
== END 2024-10-18 16:35 | disposition home or self-care (01) | DRG 871 ==
LOC: JD.ED 08:36 → JD.MS 12:29
PROVIDERS: ADMIT Student in an Organized Health Care Education/Training Program; ATTEND Family Medicine
PROC: 5A09457 Assistance with Respiratory Ventilation, 24-96 Consecutive Hours, Continuous Positive Airway Pressure (ICD-10-PCS; 2024-10-11)
PROC: 3E03329 Introduction of Other Anti-infective into Peripheral Vein, Percutaneous Approach (ICD-10-PCS; 2024-10-11)
PROC: 30233R1 Transfusion of Nonautologous Platelets into Peripheral Vein, Percutaneous Approach (ICD-10-PCS; principal; 2024-10-13)
PROC: 30233N1 Transfusion of Nonautologous Red Blood Cells into Peripheral Vein, Percutaneous Approach (ICD-10-PCS; 2024-10-13)
DX: I11.0 Hypertensive heart disease with heart failure (principal); I50.9 Heart failure, unspecified; D64.9 Anemia, unspecified; A41.02 Sepsis due to Methicillin resistant Staphylococcus aureus; I50.31 Acute diastolic (congestive) heart failure; J15.212 Pneumonia due to Methicillin resistant Staphylococcus aureus; J96.01 Acute respiratory failure with hypoxia; I13.0 Hypertensive heart and chronic kidney disease with heart failure and stage 1 through stage 4 chronic kidney disease, or unspecified chronic kidney disease; Z79.890 Hormone replacement therapy; N39.0 Urinary tract infection, site not specified; D62 Acute posthemorrhagic anemia; A41.59 Other Gram-negative sepsis; R65.20 Severe sepsis without septic shock; Z91.048 Other nonmedicinal substance allergy status; E11.22 Type 2 diabetes mellitus with diabetic chronic kidney disease; E78.5 Hyperlipidemia, unspecified; E03.9 Hypothyroidism, unspecified; C61 Malignant neoplasm of prostate; Z96.649 Presence of unspecified artificial hip joint; B96.1 Klebsiella pneumoniae [K. pneumoniae] as the cause of diseases classified elsewhere; H91.90 Unspecified hearing loss, unspecified ear; H54.7 Unspecified visual loss; E66.9 Obesity, unspecified; E83.51 Hypocalcemia; D69.6 Thrombocytopenia, unspecified; D63.1 Anemia in chronic kidney disease; E11.65 Type 2 diabetes mellitus with hyperglycemia; R33.9 Retention of urine, unspecified; N18.2 Chronic kidney disease, stage 2 (mild); Z79.60 Long term (current) use of unspecified immunomodulators and immunosuppressants; Z88.5 Allergy status to narcotic agent; Z88.2 Allergy status to sulfonamides; Z95.2 Presence of prosthetic heart valve; Z79.4 Long term (current) use of insulin; Z88.7 Allergy status to serum and vaccine; Z88.8 Allergy status to other drugs, medicaments and biological substances; Z79.899 Other long term (current) drug therapy; Z79.1 Long term (current) use of non-steroidal anti-inflammatories (NSAID); Z79.51 Long term (current) use of inhaled steroids; Z68.31 Body mass index [BMI] 31.0-31.9, adult; Z85.72 Personal history of non-Hodgkin lymphomas; Z86.16 Personal history of COVID-19; Z98.890 Other specified postprocedural states; Z90.79 Acquired absence of other genital organ(s)
CPT/HCPCS: 0241U; 36415; 36430; 71045; 71046; 71250; 80048; 80053; 80202; 81001; 82607; 82746; 82947; 83540; 83605; 83735; 83880; 84100; 84443; 84466; 84484; 85025; 85027; 86140; 86850; 86900; 86901; 86922; 87040; 87070; 87077; 87086; 87088; 87186; 87205; 87641; 93005; 94640; 94660; 94667; 94668; 94761; 96374; 97110; 97112; 97116; 97161; 97530; 99285; 93010; A9270-GY; J0612; J0696; J1815; J1815-GY; J1938; J2470; J2916; J3372; J3490; J7030; J7040; P9016; P9034

== ENCOUNTER 2024-10-23 16:29 | Inpatient (IN) | payer MEDICARE, BC ==
[2024-10-23] MEDS ORDERED: Sodium Chloride 0.9% 10 ML Syringe FLUSH PRN (17:36)
[2024-10-23 18:37] LABS: HEMATOCRIT 24.3 % (42.0-52.0); HEMOGLOBIN 7.6 gm/dl (14.0-18.0); MEAN CORPUSCULAR HEMOGLOBIN 30.2 pg (28.0-32.0); MEAN CORPUSCULAR HGB CONC 31.3 g/dl (32.0-36.0); MEAN CORPUSCULAR VOLUME 96.4 fl (83.0-99.0); PLATELET COUNT,PLT 35 K/mm3 (150-400); RED BLOOD CELL COUNT 2.52 M/mm3 (4.52-5.90); WHITE BLOOD CELL COUNT,WBC 4.79 K/mm3 (3.9-11.3)
[2024-10-23 18:58] LABS: A/G RATIO 0.7 (1-2); ALANINE AMINOTRANSFERASE,ALT 21 U/L (16-63); ALBUMIN 2.5 g/dl (3.4-5.0); ALKALINE PHOSPHATASE 245 U/L (46-116); ANION GAP 13.5 (5-15); ASPARTATE AMNIOTRANSFERASE,AST 32 U/L (15-37); BILIRUBIN TOTAL 0.3 mg/dL (0.2-1.0); BLOOD UREA NITROGEN,BUN 19 mg/dL (7-18); BUN/CREATININE RATIO 14.6 (14-18); CALCIUM 7.9 mg/dL (8.5-10.1); CARBON DIOXIDE,CO2 24 mEq/L (21-32); CHLORIDE,CL 107 mEq/L (98-107); CREATININE 1.3 mg/dL (0.7-1.3); ESTIMATED GFR 54 mL/min (>60); GLUCOSE RANDOM 158 mg/dL (70-99); POTASSIUM,K 4.5 mEq/L (3.5-5.1); PROTEIN TOTAL,TP 6.2 g/dl (6.4-8.2); SODIUM,NA 140 mEq/L (136-145)
[2024-10-23 18:59] LABS: INR 1.03; PROTHROMBIN TIME 10.9 SECONDS (9.7-12.0)
[2024-10-23 19:12] LABS: LACTIC ACID 2.4 mmol/L (0.4-2.0)
[2024-10-23 19:26] LABS: BAND PERCENT MAN 0 % (0-10); BASOPHILS PERCENT MAN 0 (0.2-1.2); EOSINOPHILS PERCENT MAN 1 % (0.8-7.0); LYMPHOCYTES % ATYPICAL MANUAL 0 %; LYMPHOCYTES PERCENT MAN 12 % (20-40); MONOCYTES PERCENT MAN 6 % (2-10)
[2024-10-23 19:29] LABS: ANISOCYTOSIS 2+; OVALOCYTES 1+ SLIGHT; PLATELET COUNT ESTIMATE DECREASED; POIKILOCYTOSIS 1+ SLIGHT; POLYCHROMASIA 1+ SLIGHT
[2024-10-23] MEDS: Sodium Chloride 0.9% 1,000 ML IV STA (19:30)
[2024-10-23 19:49] LABS: APPEARANCE,URINE CLEAR (Clear); BILIRUBIN,URINE NEGATIVE (Negative); COLOR,URINE YELLOW (Yellow); GLUCOSE,URINE NEGATIVE (Negative); KETONES,URINE NEGATIVE (Negative); LEUKOCYTE ESTERASE,URINE 1+ (Negative); NITRITE,URINE NEGATIVE (Negative); OCCULT BLOOD,URINE NEGATIVE (Negative); PH,URINE 6.5 (5.0-8.0); PROTEIN,URINE TRACE (Negative); UROBILINOGEN,URINE 0.2 (0.2-1.0)
[2024-10-23 19:56] LABS: BACTERIA,URINE FEW /hpf (FEW); RBC,URINE 0-5 /hpf (0-5); SQUAMOUS EPITHELIAL CELLS,UR 0-5 /hpf (0-5)
[2024-10-23 19:57] LABS: MUCUS,URINE FEW /hpf (FEW)
[2024-10-23] MEDS: Doxycycline 100 MG in Sodium Chloride 0.9% 100 ML IV SCH (20:42)
[2024-10-23] MEDS: cefTRIAXone 2 GM Vial IVPUSH ONE (20:42)
[2024-10-23] MEDS ORDERED: Acetaminophen 325 MG Tab PO PRN (20:43)
[2024-10-24 04:23] LABS: BASOPHILS PERCENT AUTO 0.4 % (0.0-1.0); EOSINOPHILS PERCENT AUTO 0.7 % (0.0-6.0); HEMATOCRIT 22.6 % (42.0-52.0); IMMATURE GRAN ABSOLUTE AUTO 0.52 K/mm3 (0.00-0.05); IMMATURE GRAN PERCENT AUTO 11.5 % (0.0-0.4); LYMPHOCYTES ABSOLUTE AUTO 0.7 K/mm3 (1.0-4.8); LYMPHOCYTES PERCENT AUTO 15.2 % (24.0-44.0); MEAN CORPUSCULAR HEMOGLOBIN 29.4 pg (28.0-32.0); MONOCYTES ABSOLUTE AUTO 0.5 K/mm3 (0.0-0.8); MONOCYTES PERCENT AUTO 11.5 % (0.0-8.0); NEUTROPHILS ABSOLUTE AUTO 2.8 K/mm3 (1.8-7.7); NEUTROPHILS PERCENT AUTO 60.7 % (41.0-71.0); PLATELET COUNT,PLT 30 K/mm3 (150-400); RED BLOOD CELL COUNT 2.38 M/mm3 (4.52-5.90); WHITE BLOOD CELL COUNT,WBC 4.53 K/mm3 (3.9-11.3)
[2024-10-24 04:52] LABS: A/G RATIO 0.6 (1-2); ALBUMIN 2.2 g/dl (3.4-5.0); ANION GAP 13.2 (5-15); BILIRUBIN TOTAL 0.2 mg/dL (0.2-1.0); C-REACTIVE PROTEIN 3.14 mg/dL (<0.30); CALCIUM 7.4 mg/dL (8.5-10.1); EST CRCL DRUG DOSING (CG) 60.36 mL/min; MAGNESIUM 1.9 mg/dL (1.8-2.4); PHOSPHORUS 2.6 mg/dL (2.6-4.7); POTASSIUM,K 4.2 mEq/L (3.5-5.1); PROTEIN TOTAL,TP 5.7 g/dl (6.4-8.2)
[2024-10-24 05:33] LABS: SLIDE REVIEW ABNORMAL SMEAR
[2024-10-24] MEDS ORDERED: oxyCODONE 5 MG Tab PO PRN (08:56)
[2024-10-24] MEDS ORDERED: Ondansetron 4 MG/2 ML SDV IV PRN (08:56)
[2024-10-24] MEDS ORDERED: Albuterol 0.083% 2.5 MG/3 ML Neb Soln NEB PRN (08:56)
[2024-10-24] MEDS ORDERED: Sennosides/Docusate Sodium 50-8.6 MG Tab PO PRN (08:56)
[2024-10-24 09:59] LABS: BICARBONATE,ARTERIAL 21.2 meq/L (22.0-26.0); O2 SATURATION ARTERIAL 96.8 % (96.0-97.0)
[2024-10-24 10:00] LABS: BASE EXCESS ARTERIAL -2.7 (-2-2.0)
[2024-10-24] MEDS: Albuterol/Ipratropium 3.0-0.5 MG/3 ML Neb Soln NEB PRN (10:55)
[2024-10-24] MEDS: guaiFENesin 600 MG Tab.ER PO SCH (12:49)
[2024-10-24] MEDS: Metoprolol Tartrate 25 MG Tab PO SCH (12:50)
[2024-10-24 15:22] LABS: IRON,FE 42 ug/dL (65-175); PERCENT FE SATURATION 28 % (20-55); TRANSFERRIN 120 mg/dL (202-364)
[2024-10-24 15:31] LABS: TOTAL IRON BINDING CAPACITY 150 ug/dL (100-400)
[2024-10-24] MEDS: Sodium Chloride 0.9% 250 ML IV SCH (16:12)
[2024-10-24] MEDS: Insulin Lispro 100 Unit/ML 3 ML KwikPen SUBCUT SCH (17:23)
[2024-10-24] MEDS: cefTRIAXone 2 GM Vial IVPUSH SCH (20:37)
[2024-10-25 05:46] LABS: BASOPHILS PERCENT AUTO 0.6 % (0.0-1.0); EOSINOPHILS PERCENT AUTO 0.6 % (0.0-6.0); HEMATOCRIT 26.8 % (42.0-52.0); HEMOGLOBIN 8.4 gm/dl (14.0-18.0); IMMATURE GRAN ABSOLUTE AUTO 0.71 K/mm3 (0.00-0.05); IMMATURE GRAN PERCENT AUTO 13.2 % (0.0-0.4); LYMPHOCYTES ABSOLUTE AUTO 0.6 K/mm3 (1.0-4.8); MEAN CORPUSCULAR HEMOGLOBIN 28.9 pg (28.0-32.0); MEAN CORPUSCULAR HGB CONC 31.3 g/dl (32.0-36.0); MEAN CORPUSCULAR VOLUME 92.1 fl (83.0-99.0); MONOCYTES ABSOLUTE AUTO 0.7 K/mm3 (0.0-0.8); NEUTROPHILS ABSOLUTE AUTO 3.3 K/mm3 (1.8-7.7); NEUTROPHILS PERCENT AUTO 61.6 % (41.0-71.0); PLATELET COUNT,PLT 30 K/mm3 (150-400); RED BLOOD CELL COUNT 2.91 M/mm3 (4.52-5.90); WHITE BLOOD CELL COUNT,WBC 5.37 K/mm3 (3.9-11.3)
[2024-10-25 06:10] LABS: A/G RATIO 0.6 (1-2); ALBUMIN 2.4 g/dl (3.4-5.0); ANION GAP 15.8 (5-15); BILIRUBIN TOTAL 0.3 mg/dL (0.2-1.0); C-REACTIVE PROTEIN 3.82 mg/dL (<0.30); EST CRCL DRUG DOSING (CG) 60.36 mL/min; MAGNESIUM 2.2 mg/dL (1.8-2.4); PHOSPHORUS 2.7 mg/dL (2.6-4.7); POTASSIUM,K 4.8 mEq/L (3.5-5.1); PROTEIN TOTAL,TP 6.2 g/dl (6.4-8.2)
[2024-10-25 06:13] LABS: SLIDE REVIEW ABNORMAL SMEAR
[2024-10-25] MEDS: Pantoprazole 40 MG Tab.CR PO SCH (06:33)
[2024-10-25] MEDS: Levothyroxine 100 MCG Tab PO SCH (06:33)
[2024-10-25] MEDS: Tamsulosin 0.4 MG Cap.ER PO SCH (09:24)
[2024-10-25 11:41] VITALS: BP 142/65; PULSE 80
== END 2024-10-25 11:38 | DRG 812 ==
LOC: JD.ED 16:29 → JD.MS 20:55
PROVIDERS: ADMIT Student in an Organized Health Care Education/Training Program; ATTEND Student in an Organized Health Care Education/Training Program
PROC: 30233N1 Transfusion of Nonautologous Red Blood Cells into Peripheral Vein, Percutaneous Approach (ICD-10-PCS; principal; 2024-10-24)
DX: R53.1 Weakness (principal); D62 Acute posthemorrhagic anemia; T83.9XXA Unspecified complication of genitourinary prosthetic device, implant and graft, initial encounter; K92.2 Gastrointestinal hemorrhage, unspecified; I12.9 Hypertensive chronic kidney disease with stage 1 through stage 4 chronic kidney disease, or unspecified chronic kidney disease; C85.90 Non-Hodgkin lymphoma, unspecified, unspecified site; J18.9 Pneumonia, unspecified organism; D84.9 Immunodeficiency, unspecified; N30.00 Acute cystitis without hematuria; I13.0 Hypertensive heart and chronic kidney disease with heart failure and stage 1 through stage 4 chronic kidney disease, or unspecified chronic kidney disease; E87.20 Acidosis, unspecified; E87.3 Alkalosis; Z79.890 Hormone replacement therapy; Z66 Do not resuscitate; E03.9 Hypothyroidism, unspecified; H91.90 Unspecified hearing loss, unspecified ear; H54.7 Unspecified visual loss; E66.9 Obesity, unspecified; E78.00 Pure hypercholesterolemia, unspecified; Z96.649 Presence of unspecified artificial hip joint; R33.9 Retention of urine, unspecified; I50.9 Heart failure, unspecified; N18.31 Chronic kidney disease, stage 3a; F15.90 Other stimulant use, unspecified, uncomplicated; D46.9 Myelodysplastic syndrome, unspecified; E11.22 Type 2 diabetes mellitus with diabetic chronic kidney disease; D69.6 Thrombocytopenia, unspecified; R26.2 Difficulty in walking, not elsewhere classified; Z97.8 Presence of other specified devices; Z86.14 Personal history of Methicillin resistant Staphylococcus aureus infection; Z87.19 Personal history of other diseases of the digestive system; Z87.442 Personal history of urinary calculi; Z88.5 Allergy status to narcotic agent; Z88.2 Allergy status to sulfonamides; Z88.7 Allergy status to serum and vaccine; Z88.8 Allergy status to other drugs, medicaments and biological substances; Z79.4 Long term (current) use of insulin; Z79.899 Other long term (current) drug therapy; Z79.1 Long term (current) use of non-steroidal anti-inflammatories (NSAID); Z79.51 Long term (current) use of inhaled steroids; Z85.46 Personal history of malignant neoplasm of prostate; Z95.2 Presence of prosthetic heart valve; Z98.890 Other specified postprocedural states; Z90.79 Acquired absence of other genital organ(s); Z86.16 Personal history of COVID-19; Z79.60 Long term (current) use of unspecified immunomodulators and immunosuppressants; Z87.01 Personal history of pneumonia (recurrent)
CPT/HCPCS: 36415; 36430; 36600; 51702; 71045; 71045-26; 80053; 81001; 82803; 82947; 83540; 83605; 83735; 83880; 84100; 84466; 85007; 85025; 85027; 85610; 86140; 86850; 86900; 86901; 86922; 87040; 87086; 87426-QW; 93005; 94640; 94667; 94668; 94760; 94761; 96360; 97116-GP; 97162-GP; 97530-GP; 99285-25; A9270-GY; J0696; J1815; J3490; J7030; P9016

== ENCOUNTER 2024-10-29 14:07 | Inpatient (IN) | payer MEDICARE, BC ==
[2024-10-29] MEDS ORDERED: Sodium Chloride 0.9% 10 ML Syringe FLUSH PRN (14:37)
[2024-10-29 15:17] LABS: BASOPHILS PERCENT AUTO 0.3 % (0.0-1.0); EOSINOPHILS PERCENT AUTO 0.2 % (0.0-6.0); HEMATOCRIT 30.5 % (42.0-52.0); HEMOGLOBIN 9.3 gm/dl (14.0-18.0); IMMATURE GRAN ABSOLUTE AUTO 0.43 K/mm3 (0.00-0.05); IMMATURE GRAN PERCENT AUTO 6.7 % (0.0-0.4); LYMPHOCYTES ABSOLUTE AUTO 0.6 K/mm3 (1.0-4.8); LYMPHOCYTES PERCENT AUTO 8.9 % (24.0-44.0); MEAN CORPUSCULAR HEMOGLOBIN 28.6 pg (28.0-32.0); MEAN CORPUSCULAR HGB CONC 30.5 g/dl (32.0-36.0); MEAN CORPUSCULAR VOLUME 93.8 fl (83.0-99.0); MONOCYTES ABSOLUTE AUTO 0.8 K/mm3 (0.0-0.8); MONOCYTES PERCENT AUTO 13.1 % (0.0-8.0); NEUTROPHILS ABSOLUTE AUTO 4.5 K/mm3 (1.8-7.7); NEUTROPHILS PERCENT AUTO 70.8 % (41.0-71.0); PLATELET COUNT,PLT 35 K/mm3 (150-400); RED BLOOD CELL COUNT 3.25 M/mm3 (4.52-5.90)
[2024-10-29] MEDS: Metoprolol Tartrate 5 MG/5 ML SDV IVPUSH ONE (15:32)
[2024-10-29 15:34] LABS: INR 1.02; PROTHROMBIN TIME 10.8 SECONDS (9.7-12.0)
[2024-10-29] MEDS: Sodium Chloride 0.9% 500 ML IV SCH (15:40)
[2024-10-29] MEDS: Sodium Chloride 0.9% 10 ML Syringe FLUSH PRN (15:40)
[2024-10-29 15:47] LABS: A/G RATIO 0.6 (1-2); ALBUMIN 2.7 g/dl (3.4-5.0); ANION GAP 13.5 (5-15); BILIRUBIN TOTAL 0.4 mg/dL (0.2-1.0); BUN/CREATININE RATIO 15.7 (14-18); CREATININE 1.4 mg/dL (0.7-1.3); EST CRCL DRUG DOSING (CG) 44.39 mL/min; MAGNESIUM 2.1 mg/dL (1.8-2.4); POTASSIUM,K 4.5 mEq/L (3.5-5.1); PROTEIN TOTAL,TP 6.9 g/dl (6.4-8.2)
[2024-10-29 15:51] LABS: LACTIC ACID 2.7 mmol/L (0.4-2.0)
[2024-10-29 17:07] LABS: APPEARANCE,URINE CLEAR (Clear); BILIRUBIN,URINE NEGATIVE (Negative); COLOR,URINE YELLOW (Yellow); GLUCOSE,URINE NEGATIVE (Negative); KETONES,URINE NEGATIVE (Negative); LEUKOCYTE ESTERASE,URINE TRACE (Negative); NITRITE,URINE NEGATIVE (Negative); OCCULT BLOOD,URINE 1+ (Negative); PROTEIN,URINE 2+ (Negative); UROBILINOGEN,URINE 0.2 (0.2-1.0)
[2024-10-29] MEDS ORDERED: Sodium Chloride 0.9% 500 ML IV SCH (17:15)
[2024-10-29] MEDS ORDERED: Acetaminophen 325 MG Tab PO PRN (17:15)
[2024-10-29] MEDS: Cefepime 2 GM Vial IVPUSH ONE (17:16)
[2024-10-29] MEDS ORDERED: 50% Dextrose in Water 50 ML Syringe IVPUSH PRN (17:17)
[2024-10-29 17:30] LABS: BACTERIA,URINE FEW /hpf (FEW); MUCUS,URINE FEW /hpf (FEW); SQUAMOUS EPITHELIAL CELLS,UR 0-5 /hpf (0-5); WBC,URINE 0-5 /hpf (0-5); YEAST BUDDING,URINE MODERATE (NOT SEEN)
[2024-10-29] MEDS ORDERED: VANCOmycin 1.5 GM/300 ML 300 ML IV ONE (18:00)
[2024-10-29 18:03] LABS: URIC ACID 5.7 mg/dL (3.5-7.2)
[2024-10-29] MEDS: Insulin Lispro 100 Unit/ML 3 ML KwikPen SUBCUT SCH (18:27)
[2024-10-29] MEDS: VANCOmycin 2 GM/400 ML 2 GM in Premix Bag 1 BAG IV ONE (18:34)
[2024-10-29] MEDS: Metoprolol Tartrate 25 MG Tab PO SCH (21:14)
[2024-10-29] MEDS: Metoprolol Tartrate 5 MG/5 ML SDV IVPUSH PRN (22:49)
[2024-10-29] MEDS: Sodium Chloride 0.9% 1,000 ML IV SCH (23:14)
[2024-10-30] MEDS: Cefepime 2 GM Vial IVPUSH SCH (01:14)
[2024-10-30 04:12] LABS: BASOPHILS PERCENT AUTO 0.2 % (0.0-1.0); EOSINOPHILS PERCENT AUTO 0.2 % (0.0-6.0); HEMATOCRIT 24.9 % (42.0-52.0); HEMOGLOBIN 7.7 gm/dl (14.0-18.0); IMMATURE GRAN PERCENT AUTO 6.8 % (0.0-0.4); LYMPHOCYTES ABSOLUTE AUTO 0.6 K/mm3 (1.0-4.8); LYMPHOCYTES PERCENT AUTO 10.3 % (24.0-44.0); MEAN CORPUSCULAR HEMOGLOBIN 28.4 pg (28.0-32.0); MEAN CORPUSCULAR HGB CONC 30.9 g/dl (32.0-36.0); MEAN CORPUSCULAR VOLUME 91.9 fl (83.0-99.0); MEAN PLATELET VOLUME 12.1 fl (9.4-12.4); MONOCYTES ABSOLUTE AUTO 0.8 K/mm3 (0.0-0.8); MONOCYTES PERCENT AUTO 13.9 % (0.0-8.0); NEUTROPHILS ABSOLUTE AUTO 4.1 K/mm3 (1.8-7.7); NEUTROPHILS PERCENT AUTO 68.6 % (41.0-71.0); PLATELET COUNT,PLT 28 K/mm3 (150-400); RED BLOOD CELL COUNT 2.71 M/mm3 (4.52-5.90); WHITE BLOOD CELL COUNT,WBC 5.92 K/mm3 (3.9-11.3)
[2024-10-30 04:36] LABS: A/G RATIO 0.6 (1-2); ALBUMIN 2.1 g/dl (3.4-5.0); ANION GAP 17.3 (5-15); BILIRUBIN TOTAL 0.4 mg/dL (0.2-1.0); BUN/CREATININE RATIO 18.2 (14-18); C-REACTIVE PROTEIN 9.64 mg/dL (<0.30); CALCIUM 7.2 mg/dL (8.5-10.1); CREATININE 1.1 mg/dL (0.7-1.3); EST CRCL DRUG DOSING (CG) 56.49 mL/min; POTASSIUM,K 4.3 mEq/L (3.5-5.1); PROTEIN TOTAL,TP 5.7 g/dl (6.4-8.2)
[2024-10-30 04:44] LABS: SLIDE REVIEW ABNORMAL SMEAR
[2024-10-30] MEDS: Metoprolol Tartrate 25 MG Tab PO ONE (15:56)
[2024-10-30] MEDS: VANCOmycin 1.5 GM/300 ML 1.5 GM in Premix Bag 1 BAG IV SCH (17:57)
[2024-10-31 04:25] LABS: BASOPHILS PERCENT AUTO 0.4 % (0.0-1.0); EOSINOPHILS PERCENT AUTO 0.6 % (0.0-6.0); HEMATOCRIT 25.1 % (42.0-52.0); HEMOGLOBIN 7.7 gm/dl (14.0-18.0); IMMATURE GRAN ABSOLUTE AUTO 0.39 K/mm3 (0.00-0.05); IMMATURE GRAN PERCENT AUTO 7.4 % (0.0-0.4); LYMPHOCYTES ABSOLUTE AUTO 0.6 K/mm3 (1.0-4.8); LYMPHOCYTES PERCENT AUTO 10.4 % (24.0-44.0); MEAN CORPUSCULAR HEMOGLOBIN 28.2 pg (28.0-32.0); MEAN CORPUSCULAR HGB CONC 30.7 g/dl (32.0-36.0); MEAN CORPUSCULAR VOLUME 91.9 fl (83.0-99.0); MONOCYTES ABSOLUTE AUTO 0.7 K/mm3 (0.0-0.8); MONOCYTES PERCENT AUTO 12.3 % (0.0-8.0); NEUTROPHILS ABSOLUTE AUTO 3.6 K/mm3 (1.8-7.7); NEUTROPHILS PERCENT AUTO 68.9 % (41.0-71.0); PLATELET COUNT,PLT 27 K/mm3 (150-400); RED BLOOD CELL COUNT 2.73 M/mm3 (4.52-5.90); WHITE BLOOD CELL COUNT,WBC 5.27 K/mm3 (3.9-11.3)
[2024-10-31 04:57] LABS: A/G RATIO 0.6 (1-2); ALBUMIN 2.1 g/dl (3.4-5.0); ANION GAP 16.3 (5-15); BILIRUBIN TOTAL 0.4 mg/dL (0.2-1.0); C-REACTIVE PROTEIN 9.44 mg/dL (<0.30); CALCIUM 7.3 mg/dL (8.5-10.1); EST CRCL DRUG DOSING (CG) 62.14 mL/min; POTASSIUM,K 4.3 mEq/L (3.5-5.1); PROTEIN TOTAL,TP 5.8 g/dl (6.4-8.2)
[2024-10-31 05:35] LABS: SLIDE REVIEW ABNORMAL SMEAR
[2024-10-31] MEDS ORDERED: Lactated Ringers 1,000 ML IV ONE (06:33)
[2024-10-31] MEDS: Metoprolol Tartrate 50 MG Tab PO SCH (09:13)
[2024-10-31 12:12] VITALS: BP 118/66; PULSE 99
== END 2024-10-31 14:09 | disposition home or self-care (01) | DRG 871 ==
LOC: JD.ED 14:07 → JD.MS 17:12
PROVIDERS: ADMIT Family Medicine; ATTEND Family Medicine
DX: A41.9 Sepsis, unspecified organism (principal); J18.9 Pneumonia, unspecified organism; J96.01 Acute respiratory failure with hypoxia; I47.19 Other supraventricular tachycardia; I13.0 Hypertensive heart and chronic kidney disease with heart failure and stage 1 through stage 4 chronic kidney disease, or unspecified chronic kidney disease; E87.20 Acidosis, unspecified; N17.9 Acute kidney failure, unspecified; C85.90 Non-Hodgkin lymphoma, unspecified, unspecified site; D84.81 Immunodeficiency due to conditions classified elsewhere; C79.51 Secondary malignant neoplasm of bone; Z66 Do not resuscitate; H91.90 Unspecified hearing loss, unspecified ear; H54.7 Unspecified visual loss; E78.00 Pure hypercholesterolemia, unspecified; E03.9 Hypothyroidism, unspecified; E66.9 Obesity, unspecified; Z96.649 Presence of unspecified artificial hip joint; I48.91 Unspecified atrial fibrillation; E11.22 Type 2 diabetes mellitus with diabetic chronic kidney disease; I50.9 Heart failure, unspecified; R65.20 Severe sepsis without septic shock; N18.32 Chronic kidney disease, stage 3b; D63.1 Anemia in chronic kidney disease; D50.0 Iron deficiency anemia secondary to blood loss (chronic); D69.59 Other secondary thrombocytopenia; E11.65 Type 2 diabetes mellitus with hyperglycemia; C61 Malignant neoplasm of prostate; Z88.7 Allergy status to serum and vaccine; Z88.5 Allergy status to narcotic agent; Z88.1 Allergy status to other antibiotic agents; Z88.8 Allergy status to other drugs, medicaments and biological substances; Z88.2 Allergy status to sulfonamides; Z79.4 Long term (current) use of insulin; Z79.51 Long term (current) use of inhaled steroids; Z79.899 Other long term (current) drug therapy; Z87.19 Personal history of other diseases of the digestive system; Z68.30 Body mass index [BMI] 30.0-30.9, adult; Z86.16 Personal history of COVID-19; Z85.841 Personal history of malignant neoplasm of brain; Z95.2 Presence of prosthetic heart valve; Z98.890 Other specified postprocedural states; Z97.8 Presence of other specified devices
CPT/HCPCS: 36415; 70450; 71045; 80053; 81001; 83605; 83615; 83735; 83880; 84484; 84550; 85025; 85610; 87040 ×2; 87086; 93005; 96374; 99285; J3490; J7030; 80202; 82947; 86140; 86738; 87070; 87205; 87899; 93010; 94760; 97110-GP; 97161-GP; 99291; A9270-GY; J0692; J1815; J3372